=== PATIENT | male | born 1940 | race Caucasian/White ===

== ENCOUNTER 2019-10-07 06:12 | Inpatient (IN) | payer OTHER, SELFPAY ==
[2019-09-30 09:46] VITALS: BMI 25.2
[2019-10-07] VITALS (22 sets, daily range): BP systolic 88–137; BP diastolic 49–77; PULSE 64–84; RESP 6–18; TEMP 35.9–36.4; O2SAT 92–100; BMI 25.2
--- NOTE | 2019-10-07 | DI.RAD.S_ITS ---
PROCEDURE: XR LUMBAR SPINE 2-3V INDICATIONS: Back surgery. TECHNIQUE: 2 views of the lumbar spine were acquired. COMPARISON: [facility] [place], CR, XR LUMBAR SPINE 2 OR 3 VIEWS, 10/03/2017, 9:13. [facility] Outside Film, MR, MR LUMBAR SPINE WITHOUT CONTRAST, 04/30/2019, 9:55. FINDINGS: AP and lateral fluoroscopy images demonstrate discectomy and posterior fusion at L4-L5 and L5-S1. There is persistent grade 2 anterolisthesis of L5 on S1. Pedicular screws and fusion rods are in expected position. IMPRESSION: Discectomy and posterior fusion at L4-L5 and L5-S1. Dictated by: Caesar Ratliff M.D. on 10/07/2019 at 17:13 Approved by: Caesar Ratliff M.D. on 10/07/2019 at 17:16
[2019-10-07] MEDS: LACTATED RINGERS 1,000 ML 42 ML IV ×2 (07:10→09:13)
--- NOTE | 2019-10-07 07:15 | PM.PREOP ---
Pre-operative Note Interval Note History & Physical reviewed/Exam performed by Physician: Yes Changes to H&P: No
[2019-10-07] MEDS: CLINDAMYCIN 600 MG/50 ML PIGGYBACK 50 MG IV (07:47)
--- NOTE | 2019-10-07 08:31 | SUR.OPER ---
Prone on spine table, head in foam head support, padded chest and pelvic supports, gel pad at knees, lower legs supported by pillows; nipples, genitalia and toes free of pressure, arms secured on foam padded arm boards at <90 degrees abduction. Tape over blanket at thigh secured to table.
[2019-10-07] MEDS: THROMBIN (RECOMBINANT) 5,000 UNIT VIAL 5000 UNIT TOP (08:42)
[2019-10-07] MEDS: VANCOMYCIN 1,000 MG VIAL 1000 MG TOP (08:42)
[2019-10-07] MEDS: SODIUM CHLORIDE 0.9% 1,000 ML, GENTAMICIN 80 MG IRR (08:42)
[2019-10-07] MEDS: BUPIVACAINE 0.5% (PF) 4 ML, MORPHINE-PF 4 MG, BUTORPHANOL 1 MG, fentaNYL 100 MCG INJ (08:43)
--- NOTE | 2019-10-07 11:56 | SUR.PHASEI ---
Patienty arrived in PACU with oral airway in. VSS>
--- NOTE | 2019-10-07 12:12 | P.OP_ITS ---
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 They had failed conservative management and requested operative intervention. Risks and benefits of surgery were discussed and appropriate consents were obtained. Surgeon: Garrick Gray Vegetable Canner: Oksana Tran Anesthesia Type: General Operative Notes Findings: None Closure Type: primary Specimen(s): none sent Prosthetic devices, grafts, tissues, transplants, or devices: NuVasive MAS r ely screws Globus Rise cage Applied: catheter Estimated Blood Loss (mL): 20 Blood products transfused: none Procedure in detail: The patient was brought to the operating room and intubated on the table. A time-out was performed. They were then rolled over to the well- padded Skip table in the prone position. Preoperative antibiotics were given. The back was prepped and draped in the standard sterile fashion. Using fluoroscopy, a 5 cm longitudinal incision was made to the well-marked right of the midline. We used Bovie to come down to and split the lumbodorsal fascia. Using fluoroscopy and monitoring, we then percutaneously placed Jamshidi needles down the pedicles of L4, L5, and S1 on the right side. These were changed out to guidewires and then we tapped and then placed the NuVasive MAS Reline screw shanks. We then opened up the retractors based over the L4 and S1 screws and used Bovie to clear up the posterolateral gutter as well as medially along the lamina to the spinous processes at both levels. A bur was used to decorticate the transverse processes and sacral ala. We brought in the microscope. Using a combination of bur and Kerrison rongeurs, a Garcia laminectomy was performed from the right side at L5-S1. We cleared over past the midline and carefully depressed the dura until we were able to decompress the opposite side. We cleared out the neural foramen. This completed the Garcia laminectomy at L5-S1. This was separate and distinct from a TLIF approach as we were decompressing the massive hypertrophic pars defect from his deformity which required extensive dissection of both the canal as well as a facetectomy to free up the nerve root. We then went up to L4-5. Again a complete laminectomy was performed from the right-hand side including facet removal and decompressing across the midline and clearing out the neural foramen until we had the L4 root completely freed. We then began the TLIF prep and at L5-S1. We carefully cleaned up the remainder of the foramen until we could easily retract the exiting L5 root as well as clearing medially below the dura and expose the disc space. We had to use an osteotome and Kerrisons to remove the posterior lip of S1 until we could get all the way down to the disc space. The disc was prepped with bipolar and then an annulotomy was performed. We performed a diskectomy using a combination of paddles, maggie, pituitaries, and curettes. We distracted the disc using a paddle and locked the retractor in an open position. We then filled the disc space with Osteocel bone graft. We then placed the globus Rise cage under fluoroscopy and then filled this in with more bone graft. The distraction on the retractor was released to compress down. This completed the posterior interbody fusion portion of the TLIF at L5-S1. We then went up to L4-5. Again we carefully retracted the dura. An annulotomy was performed. We performed a complete diskectomy with paddle Maggie pituitaries and curettes. Some of the superior endplate of L5 broke down when we rotating our maggie but we were able to place them deeper into the disc more anteriorly and continue clearing up the disc space. We packed bone graft and then placed a globus Rise cage and expanded it under fluoroscopy. This co mpleted the posterior interbody fusion portion of the TLIF at L4-5. We then placed the screw heads, cole, and locked down the set screws. The wound was copiously irrigated. A small stab incision was made over the PSIS. We used a Jamshidi needle to aspirate several mL of bone marrow from the pelvis. This was mixed with the remaining Osteocel and combined with all of the locally harvested bone graft and placed in the posterolateral gutter for the posterior fusion of the TLIF at L4-5 and L5-S1. An epidural catheter was then placed in the spinal canal by carefully depressing the dura and advancing it 6 cm cephalad under the remaining lamina without resistance. The muscle fascia was closed. The catheter was then injected with a solution containing 4 mL of 0.5% Marcaine, 1 mg Stadol, 4 mg Duramorph, and 100 mcg of fentanyl. This was injected without resistance and the catheter was pulled. We then went to the opposite side. Again using fluoroscopy, a 5 cm incision was made and Bovie was used to come down to split the fascia. Using neural monitoring and fluoroscopy, Jamshidi needles were advanced down the pedicles of L4, L5, and S1 on the left side. These were switched over guidewires, tapped, and screws placed. We then placed a cole and locked the set screws on this side. The wound was irrigated. The fascia was closed. Vancomycin powder was placed in the wounds. The superficial and skin were closed. A sterile dressing was placed. The patient was then rolled over extubated and brought to recovery room without complications. Complications: none Post-operative Condition: stable Disposition: PACU Plan for aftercare: Inpatient. Up with therapy.
--- NOTE | 2019-10-07 12:16 | SUR.PHASEI ---
Patient somnolent, but arouses to voice. Denies pain/nausea. Radha MICHAELS. ZAHRAA's x 4.
--- NOTE | 2019-10-07 14:55 | PC.NURSE ---
Addendum entered by Jennifer Duran R.N. 10/07/19 15:45: POM of Prostagenix bottle placed in pt's room med bin. SINA Blanco aware for the request to have ordered as pt takes at home for urinary frequency and urgency. Pt has not had a dose today, states takes 3 capsules daily as stated on bottle. Pt had previously tried Flomax at 0.4mg dose and 0.8mg dose without good results. Original Note: Day Shift- Report rec'd from DIABETES NURSE at 1240, Pt arrived at 1300 via bed into room 221. Pt's son Don at bedside as well. Lower back dressing gauze and tegaderm dressing CDI. CMS+, PPP, pt has slight decreased sensation to BLE extending from groin to ankle. Able to move BLE, wriggle toes. Oriented pt to call light, bed function, post op vitals. repositioning every couple hours. POM of Flurometholone sent to pharmacy to ID and retrieved back and placed in pt's bin. Spoke with SINA Blanco at 1430 to clarify if okay for pt to have ordered Celebrex. Reported from DIABETES NURSE and pt's son Jacob, pt has side effect from Ibuprofen. Son Jacob states that pt was told not to take Ibuprofen by a physician.
--- NOTE | 2019-10-07 16:00 | PT.IIE ---
Current Diagnoses Spondylolisthesis, lumbar region (10/07/19) Spinal stenosis, lumbar region with neurogenic claudication (10/07/19) Surgery Performed Operation Date: 10/07/19 07:45 Actual Procedures p L4-5 & L5-S1 laminectomy and instrumented fusion w/bone graft - Garrick Gray MD Surgical History (Last Updated 09/30/19 @ 10:17 by Diane Dillard RN) H/O vasectomy (Acute) History of arthroplasty of right knee (Acute) History of total right hip arthroplasty (Acute) Hx of arthroscopy of left knee (Acute) Hx of arthroscopy of right knee (Acute) Hx of cystoscopy (Acute) Hx of hernia repair (Acute) Hx of left knee surgery (Acute ~2004) S/P CABG x 4 (Acute ~01/2017) Status post extracapsular cataract extraction of right eye (Acute) Medical History (Last Updated 09/30/19 @ 10:20 by Diane Dillard RN) Arthritis (Acute) BCC (basal cell carcinoma) (Acute) Bilateral shoulder pain (Acute) CAD (coronary artery disease) (Acute) Diabetes (Acute) Enlarged prostate (Acute) HLD (hyperlipidemia) (Acute) [place] (hard of hearing) (Acute) HTN (hypertension) (Acute) Neck pain (Acute) Numbness (Acute) PSVT (paroxysmal supraventricular tachycardia) (Acute) Physical Therapy Inpatient Evaluation/Re-Eval M1 PT/OT-IP Prior Functional Status Start: 10/07/19 14:33 Freq: NEEDED Status: Active Protocol: Document 10/07/19 15:45 AW (Rec: 10/07/19 16:17 AW [id number]) Medical Review Prior Functional Status Medical History Reviewed Yes Diet/Fluid Consistency Regular Communication WNL Mobility and Gait Pt used an assistive device - either 4WW or SPC for all mobility. Pt's own 4WW is in the room with him. Activities of Daily Living and IADL's Pt lives alone and was independent for all ADL's Social History Household Members none Living Arrangements House Number of Floors (Floors) One Floor Number of Stairs To Enter/Railing? 1 RBYCE, but can bypass the step with a ramp Home Environment High Toilet,Walk in Shower, Ramp Home Equipment Front Wheel Walker,Four Wheel Walker,Straight Cane,Shower Seat without Backrest,Grab Bars Near Toilet,Grab Bars In Shower Employment Status Retired Additional Social History Comment Pt's son, Jacob, lives nearby. He has not planned to take time off work to be with the pt realtime reporter at discharge but will be able to check in daily . M2 PT-IP Current Condition Start: 10/07/19 14:33 Freq: NEEDED Status: Active Protocol: Document 10/07/19 15:45 AW (Rec: 10/07/19 16:17 AW [id number]) Physical Therapy Current Condition Current Condition Evaluation Date 10/07/19 Treatment Diagnosis s/p L4-5 L5-S1 TLIF, impaired mobility Onset Date 10/07/19 Precautions Lumbar Precautions Log Roll,No Twisting,Limit Bending,Lifting Restriction of 10 lbs,Gait Belt above Incisional Area Weight Bearing Status Weight Bearing Status Full Weight Bearing M3 PT-IP Subjective Start: 10/07/19 14:33 Freq: NEEDED Status: Active Protocol: Document 10/07/19 15:45 AW (Rec: 10/07/19 16:17 AW [id number]) Subjective Physical Therapy Visit Type Type Initial Evaluation Visit Start Time 14:43 Visit Stop Time 15:35 Total Visit Minutes 52 Notes Pt's son, Jacob, present throughout evaluation Number of SHAPE HAND Visits 0 Physical Therapy Visit Comments Patient Comments Pt would like to get moving Patient Goals To go home when medically ready Therapy Pain Assessment Pain When Pain Assessed During Mobility Pain Present Pain Present Pain Reported Location low back Intensity 7 Scale Used 3/10 at rest; 7/10 with mobility Pain Management Techniques Distraction,Re-positioning, Timing of Activity with Medications M4 PT-IP Mobility and Gait Start: 10/07/19 14:33 Freq: NEEDED Status: Active Protocol: Document 10/07/19 15:45 AW (Rec: 10/07/19 16:17 AW [id number]) PT-Bed Mobility Assessment Rolling Type of Rolling Log Rolling Level of Assist Minimal Assistance Supine to Sit Supine to Sit Minimal Assistance,1 Person Assistance Sit to Supine Sit to Supine Minimal Assistance,1 Person Assistance Scooting Scooting to Edge of Bed Contact Guard Assistance Scooting Up and Down in Bed Standby Assistance PT-Transfer Assessment Sit to and From Stand Sit to and from Stand Standby Assistance,Contact Guard Assistance,Minimal Assistance Equipment Transfer Assistive Device Gait Belt,Front Wheeled Walker Orthotic/Prosthetic Devices or Brace: No Transfers Transfer Destination Bed Transfer Technique pt ambulated with FWW Transfer Ability Level of Assist Contact Guard Assistance,1 Person Assistance,Use of Upper Extremities Comments Mobility Comments Pt completed log roll to exit bed to his right side as he does at home. He required min A x 1 and cues for sequencing for log roll and supine to sit . He sat EOB for MMT with and without UE support. First attempt at sit to stand required min A x 1 with FWW and cues for B UE pushoff in order to maintain spinal precautions. Pt is impulsive and required reminders not to stand without assistance. Pt stood with FWW CGA and performed marching in place ~2 minutes and then walked with the FWW CGA 12 feet round trip to the window and back. He sat EOB and requested to walk further. Subsequent sit to stand attempts required only SBA. After gait training, pt was repositioned in the bed with bed alarm armed, call light and all needs within reach, and son at bedside. Gait Assessment Gait Gait Assistance Required: Contact Guard Assist,1 Person Assist Distance (Feet) 150 Able to Maintain Weight Bearing Status Yes During Gait Assistive Devices Assistive Device Gait Belt,Front Wheeled Walker Orthotic/Prosthetic Devices or Brace: No Gait Deviations General Gait Pattern Antalgic,Decreased Stride Length,Decreased Feet Clearance,Flexed Trunk,Lateral Trunk Lean,Step-to Gait Factors Limiting Gait Function Factors Limiting Gait Function Decreased Activity Tolerance, Decreased Strength,Limited Range of Motion,Pain,Poor Balance,Poor Safety Awareness Comments Gait Comments Pt ambulated ~150 feet with FWW CGA. He required cues for equal step length and was able to correct his step-to pattern with shorter steps. He demonstrated ipsilateral trunk lean in stance phase bilaterally. Stair Climbing Assessment Comments Stair Climbing Comments Not assessed. Pt does not need to climb stairs at home. PT-Balance Assessment Sitting Balance and Reactions Static Sitting Balance Ability Normal Dynamic Sitting Balance Ability Good Standing Balance and Reactions Static Standing Balance Ability Good Dynamic Standing Balance Ability Good Device Used FWW M5 PT-IP Objective Assessments Start: 10/07/19 14:33 Freq: NEEDED Status: Active Protocol: Document 10/07/19 15:45 AW (Rec: 10/07/19 16:17 AW [id number]) Orientation Orientation/Cognition Level of Alertness Alert Orientation Name,Day of Week,Place, Situation Language Function Ability No Deficits Noted,Hard of Hearing Safety Awareness Decreased Safety Awareness Memory Description No Deficits Noted Comments Pt wears hearing aids which are effective in correcting his hearing impairment. Gross Range of Motion Upper Extremity ROM Assessment Within Functional Limits Lower Extremity ROM Assessment Bilaterally Impaired Impairments R LE lacking ~10 degrees; L LE lacks ~5 degrees knee extension, even passively. Strength Upper Extremity Strength Assessment Within Functional Limits Lower Extremity Strength Assessment Bilaterally Impaired Hip 4-/5 Knee 4+/5 Ankle 4+/5 Coordination Assessment Gross Coordination Gross Coordination WNL Sensation Assessment Sensation Gross Sensation WNL M6 PT-IP Treatment Start: 10/07/19 14:33 Freq: NEEDED Status: Active Protocol: Document 10/07/19 15:45 AW (Rec: 10/07/19 16:17 AW [id number]) Physical Therapy Treatment Exercises Exercises Ankle Pumps Other Treatments Other Treatment Performed Provided education on role of PT, plan of care, post-op precautions, and safe use of FWW. M7 PT-IP Assessment and Plan Start: 10/07/19 14:33 Freq: NEEDED Status: Active Protocol: Document 10/07/19 15:45 AW (Rec: 10/07/19 16:17 AW [id number]) PT Summary Assessment and Plan Potential Rehabilitation Potential Good Status of Condition at Evaluation Evolving Summary Impairments Pain,ROM,Strength,Balance,Bed Mobility,Transfers,Gait, Activity Tolerance Assessment Summary Jacob is a 79 yo man seen for PT evaluation on POD0 following L4-5 L5-S1 TLIF. At baseline, he ambulates with a 4WW or occasionally with a SPC. Pt states he could walk up to 800 ' with 4WW. Pt reports 2 non- injurious falls in the past year. He lacks 5-10 degrees active and passive knee extension bilaterally. On evaluation, pt required up to min assist x 1 for all mobility but PT anticipates he will progress quickly and likely be safe to discharge home with his son checking in daily. PT recommends discharge to home with assist and possible need for home health services to address self-care and safety in the home, bilateral LE strength deficits , and balance impairments. Goals Bed Mobility Goal Independent Transfer Goal Independent,Front Wheeled Walker,Four Wheeled Walker Gait Goal Independent,Front Wheel Walker ,Four Wheel Walker Gait Distance 200 Other Goals transfer and gait goals to be assessed with FWW vs 4WW for safety. Days to Meet Goals 2 Frequency of Treatment Frequency Of Treatment Twice a Day Treatment Plan Physical Therapy Treatment Plan Bed Mobility Training,Transfer Training,Gait Training, Therapeutic Exercise,Balance Retraining,Post Op Education, Discharge Planning,Hot or Cold Pack,Neuromuscular Re-ed, Coordination Retraining,Manual Therapy Other Recommendations and Next Treatment assess gait with 4WW, review Focus precautions and log roll Recommendations To Nursing Amount of Assist Needed 1 Person Assist Discharge Recommendations PT Discharge Recommendations Home with Assistance,Home Health,Outpatient PT Other Discharge Recommendations Home with assist + HH vs OP PT
[2019-10-07] MEDS: CLINDAMYCIN 900 MG/50 ML PIGGYBACK 50 MG IV ×2 (16:10→23:51)
[2019-10-07] MEDS: HYDROCODONE/ACET 5/325 TABLET 2 TAB PO ×2 (16:11→20:48)
[2019-10-07] MEDS: LACTATED RINGERS 1,000 ML 125 ML IV ×2 (16:17→21:35)
[2019-10-07] MEDS: SENNOSIDES 8.6 MG TABLET 17.2 MG PO (20:46)
[2019-10-07] MEDS: ASPIRIN EC 81 MG TABLET PO (20:46)
[2019-10-07] MEDS: DOCUSATE 100 MG CAPSULE PO (20:46)
[2019-10-07] MEDS: METOPROLOL IR 25 MG TABLET 12.5 MG PO (20:47)
[2019-10-07] MEDS: GABAPENTIN 300 MG CAPSULE PO (20:47)
[2019-10-07] MEDS: ROSUVASTATIN 10 MG TABLET 20 MG PO (20:50)
[2019-10-08] VITALS (7 sets, daily range): BP systolic 95–126; BP diastolic 47–60; PULSE 72–86; RESP 16–17; TEMP 36.6–37.4; O2SAT 92–98
[2019-10-08 06:10] LABS: Hematocrit 31.3 % (41-53); Hemoglobin 10.9 g/dL (13.5-17.5)
--- NOTE | 2019-10-08 08:25 | P.PN_ITS ---
Subjective Subjective Date Patient Seen: 10/08/19 Time Patient Seen: 08:25 Interval history: He is doing fairly well. Pain 2/10 at rest. He did get up and walk yesterday, which has increased pain. No more leg pain. Exam Vital Signs (past 8 hours): - 10/08/19 05:00 Temperature 98.7 F Pulse Rate 83 Respiratory Rate 16 Blood Pressure 126/56 L Pulse Oximetry 94 Oxygen Delivery Method Room Air Oxygen Flow Rate 0 Const Orientation: alert and oriented x3 Back/Spine/Pelvis Other: 5/5 motor both lower extremities. Mild drainage on the dressing. Objective Labs Result Diagrams: 10/08/19 05:27 Labs: Laboratory Results - last 24 hr 10/08/19 05:27 Hgb 10.9 L Hct 31.3 L Assessment & Plan Post-op Postoperative Procedures: Procedures Operation Date: 10/07/19 07:45 Actual Procedures Side Surgeon p L4-5 & L5-S1 laminectomy and instrumented fusion w/bone graft Garrick Gray MD He is doing well. Mobilize with therapy. Consider home health for intermediate over the next few days depending on how well he is moving. He does live by himself and will require some assistance with this. Quality VTE Deep Vein Thrombosis/Pulmonary Embolism Present on Admission: No
[2019-10-08] MEDS: HYDROCODONE/ACET 5/325 TABLET 2 TAB PO ×4 (08:55→22:20)
[2019-10-08] MEDS: ASPIRIN EC 81 MG TABLET PO ×2 (08:56→20:13)
[2019-10-08] MEDS: DOCUSATE 100 MG CAPSULE PO ×2 (08:57→20:11)
[2019-10-08] MEDS: POLYETHYLENE GLYCOL 3350 17 GM POWD.PACK PO (08:58)
[2019-10-08] MEDS: METOPROLOL IR 25 MG TABLET 12.5 MG PO ×2 (08:58→20:15)
[2019-10-08] MEDS: SODIUM CHLORIDE 0.9% FLUSH 10 ML IV ×2 (08:59→21:26)
[2019-10-08] MEDS: hydrOXYzine pamoate 25 MG CAPSULE PO ×2 (11:02→16:40)
--- NOTE | 2019-10-08 11:04 | PT.IPTN ---
Current Diagnoses Spondylolisthesis, lumbar region (10/07/19) Spinal stenosis, lumbar region with neurogenic claudication (10/07/19) Surgery Performed Operation Date: 10/07/19 07:45 Actual Procedures p L4-5 & L5-S1 laminectomy and instrumented fusion w/bone graft - Garrick Gray MD Physical Therapy Treatment Note M2 PT-IP Current Condition Start: 10/07/19 14:33 Freq: NEEDED Status: Active Protocol: Document 10/07/19 15:45 AW (Rec: 10/07/19 16:17 AW [id number]) Physical Therapy Current Condition Current Condition Evaluation Date 10/07/19 Treatment Diagnosis s/p L4-5 L5-S1 TLIF, impaired mobility Onset Date 10/07/19 Precautions Lumbar Precautions Log Roll,No Twisting,Limit Bending,Lifting Restriction of 10 lbs,Gait Belt above Incisional Area Weight Bearing Status Weight Bearing Status Full Weight Bearing M3 PT-IP Subjective Start: 10/07/19 14:33 Freq: NEEDED Status: Active Protocol: Document 10/08/19 09:54 MB (Rec: 10/08/19 11:03 MB [id number]) Subjective Physical Therapy Visit Type Type Treatment Note Visit Start Time 09:54 Visit Stop Time 10:18 Total Visit Minutes 24 Number of RESTAURANT CULINARY MANAGER Visits 0 Physical Therapy Visit Comments Patient Comments Pt would like to get up Patient Goals unsure if d/c home or SNF It depends on how I do Pt lives alone Therapy Pain Assessment Pain When Pain Assessed During Mobility Pain Present Pain Present Pain Reported Location low back Intensity 8 Scale Used 0/10 at rest, 8-10/10 transfer , 8/10 when up Pain Management Techniques Re-positioning,Timing of Activity with Medications M4 PT-IP Mobility and Gait Start: 10/07/19 14:33 Freq: NEEDED Status: Active Protocol: Document 10/08/19 09:54 MB (Rec: 10/08/19 11:03 MB [id number]) PT-Bed Mobility Assessment Rolling Type of Rolling Log Rolling,Roll to Right Level of Assist Minimal Assistance,1 Person Assistance Supine to Sit Supine to Sit Moderate Assistance,1 Person Assistance PT-Transfer Assessment Sit to and From Stand Sit to and from Stand Moderate Assistance,1 Person Assistance Equipment Transfer Assistive Device Gait Belt,Front Wheeled Walker Orthotic/Prosthetic Devices or Brace: No Transfers Transfer Destination Chair Transfer Technique pt ambulated with RW Transfer Ability Level of Assist Moderate Assistance,1 Person Assistance,Use of Upper Extremities Comments Mobility Comments Pt requires cues for log rolling today and assist to keep his legs bent for rolling to the right. He tries to reach for walker or chair and PT must cue him to use bed rail with left hand and push from right elbow. He requires mod A to get to sitting, helping lower through his legs . Gait Assessment Gait Gait Assistance Required: Moderate Assistance,1 Person Assist Distance (Feet) 5 Assistive Devices Assistive Device Gait Belt,Front Wheeled Walker Orthotic/Prosthetic Devices or Brace: No Gait Deviations General Gait Pattern Antalgic,Decreased Stride Length,Decreased Feet Clearance,Flexed Trunk,Lateral Trunk Lean,Step-to Gait Factors Limiting Gait Function Factors Limiting Gait Function Decreased Activity Tolerance, Decreased Strength,Limited Range of Motion,Pain,Poor Balance,Poor Safety Awareness Comments Gait Comments 5'x5 sets, pt with very flexed posture at his hips and knees , greater on the left knee. He presents with decreased step- length and foot clearance. He presses heavily through arms. He requires VCs and asst to move the walker and for safety . Cues for how to get lined up to chair properly Stair Climbing Assessment Comments Stair Climbing Comments Not assessed. Pt does not need to climb stairs at home. PT-Balance Assessment Sitting Balance and Reactions Static Sitting Balance Ability Normal Dynamic Sitting Balance Ability Good Standing Balance and Reactions Static Standing Balance Ability Poor Dynamic Standing Balance Ability Poor Device Used RW Comments Other Balance Tests/Deviations/Treatment Pt requires heavy use of : walker today to stand statically and dynamically, cannot extend fully through hips and knees M5 PT-IP Objective Assessments Start: 10/07/19 14:33 Freq: NEEDED Status: Active Protocol: Document 10/07/19 15:45 AW (Rec: 10/07/19 16:17 AW [id number]) Orientation Orientation/Cognition Level of Alertness Alert Orientation Name,Day of Week,Place, Situation Language Function Ability No Deficits Noted,Hard of Hearing Safety Awareness Decreased Safety Awareness Memory Description No Deficits Noted Comments Pt wears hearing aids which are effective in correcting his hearing impairment. Gross Range of Motion Upper Extremity ROM Assessment Within Functional Limits Lower Extremity ROM Assessment Bilaterally Impaired Impairments R LE lacking ~10 degrees; L LE lacks ~5 degrees knee extension, even passively. Strength Upper Extremity Strength Assessment Within Functional Limits Lower Extremity Strength Assessment Bilaterally Impaired Hip 4-/5 Knee 4+/5 Ankle 4+/5 Coordination Assessment Gross Coordination Gross Coordination WNL Sensation Assessment Sensation Gross Sensation WNL M6 PT-IP Treatment Start: 10/07/19 14:33 Freq: NEEDED Status: Active Protocol: Document 10/08/19 09:54 MB (Rec: 10/08/19 11:03 MB [id number]) Physical Therapy Treatment Exercises Exercises Ankle Pumps,Gluteal Sets, Seated Knee Flexion/Extension Other Treatments Other Treatment Performed Other exercises: mini squats and marching in standing with walker, seated scapular retraction and use of incentive spirometer, shoulder flexion Other ed to pt and nsg: Pt to have asst from nursing and walker to move from sit to stand every 30 min to 1 hour to unweight spine, walk with assist, nsg obtaining alarm for chair M7 PT-IP Assessment and Plan Start: 10/07/19 14:33 Freq: NEEDED Status: Active Protocol: Document 10/08/19 09:54 MB (Rec: 10/08/19 11:03 [id number]) PT Summary Assessment and Plan Potential Rehabilitation Potential Fair Summary Impairments Pain,ROM,Strength,Balance,Bed Mobility,Transfers,Gait, Activity Tolerance Assessment Summary Pt requires increased assistance today for bed mobility, transfers and gait. His posture is very poor with gait and he does not extend through spine, hips or knees. Given that he requires ongoing asst for mobility and he lives alone, recommend SNF for ongoing PT and 24 hour care at d/c. Con't acute PT 2x/day. Goals Bed Mobility Goal Independent Transfer Goal Independent,Front Wheeled Walker,Four Wheeled Walker Gait Goal Independent,Front Wheel Walker ,Four Wheel Walker Gait Distance 200 Other Goals transfer and gait goals to be assessed with FWW vs 4WW for safety. Days to Meet Goals 2 Frequency of Treatment Frequency Of Treatment Twice a Day Treatment Plan Physical Therapy Treatment Plan Bed Mobility Training,Transfer Training,Gait Training, Therapeutic Exercise,Balance Retraining,Post Op Education, Discharge Planning,Hot or Cold Pack,Neuromuscular Re-ed, Coordination Retraining,Manual Therapy Other Recommendations and Next Treatment assess gait with 4WW, review Focus precautions and log roll Recommendations To Nursing Amount of Assist Needed 1 Person Assist Discharge Recommendations PT Discharge Recommendations SNF Rehab
--- NOTE | 2019-10-08 14:34 | PT.IPTN ---
Current Diagnoses Spondylolisthesis, lumbar region (10/07/19) Spinal stenosis, lumbar region with neurogenic claudication (10/07/19) Surgery Performed Operation Date: 10/07/19 07:45 Actual Procedures p L4-5 & L5-S1 laminectomy and instrumented fusion w/bone graft - Garrick Gray MD Physical Therapy Treatment Note M2 PT-IP Current Condition Start: 10/07/19 14:33 Freq: NEEDED Status: Active Protocol: Document 10/07/19 15:45 AW (Rec: 10/07/19 16:17 AW [id number]) Physical Therapy Current Condition Current Condition Evaluation Date 10/07/19 Treatment Diagnosis s/p L4-5 L5-S1 TLIF, impaired mobility Onset Date 10/07/19 Precautions Lumbar Precautions Log Roll,No Twisting,Limit Bending,Lifting Restriction of 10 lbs,Gait Belt above Incisional Area Weight Bearing Status Weight Bearing Status Full Weight Bearing M3 PT-IP Subjective Start: 10/07/19 14:33 Freq: NEEDED Status: Active Protocol: Document 10/08/19 13:55 LJ (Rec: 10/08/19 14:34 LJ [email or web address]) Subjective Physical Therapy Visit Type Type Treatment Note Visit Start Time 13:55 Visit Stop Time 14:15 Total Visit Minutes 20 Number of VIRTUAL CLASSROOM MANAGER Visits 1 Physical Therapy Visit Comments Patient Comments Pt in chair wanting to get up. Son and neighbor in the room with pt Therapy Pain Assessment Pain When Pain Assessed During Mobility Pain Present Pain Present Pain Reported M4 PT-IP Mobility and Gait Start: 10/07/19 14:33 Freq: NEEDED Status: Active Protocol: Document 10/08/19 13:55 SHANE (Rec: 10/08/19 14:34 LJ [id number]) PT-Transfer Assessment Sit to and From Stand Sit to and from Stand Moderate Assistance,1 Person Assistance Equipment Transfer Assistive Device Gait Belt,Front Wheeled Walker Orthotic/Prosthetic Devices or Brace: No Transfers Transfer Destination Chair Transfer Technique pt ambulated with FWW Transfer Ability Level of Assist Moderate Assistance,1 Person Assistance,Use of Upper Extremities Comments Mobility Comments Pt requirres VC for scooting in chair and proper use of hands when standing. Mod VC to straighten back and stand upright. Gait Assessment Gait Gait Assistance Required: Moderate Assistance,1 Person Assist Distance (Feet) 20 Able to Maintain Weight Bearing Status Yes During Gait Assistive Devices Assistive Device Gait Belt,Front Wheeled Walker Orthotic/Prosthetic Devices or Brace: No Gait Deviations General Gait Pattern Antalgic,Decreased Stride Length,Decreased Feet Clearance,Flexed Trunk,Lateral Trunk Lean,Step-to Gait Factors Limiting Gait Function Factors Limiting Gait Function Decreased Activity Tolerance, Decreased Strength,Limited Range of Motion,Pain,Poor Balance,Poor Safety Awareness Comments Gait Comments Pt ambulated from chair to sink needing verbal and manual cueing to stand upright and keep FWW closer to him. Had some difficulty following directions and managing FWW when asked to turn around and walk back to chair. Pt unwilling to attempt walking in the hallway although he was out with nursing x2 earlier today. M5 PT-IP Objective Assessments Start: 10/07/19 14:33 Freq: NEEDED Status: Active Protocol: Document 10/07/19 15:45 AW (Rec: 10/07/19 16:17 AW [id number]) Orientation Orientation/Cognition Level of Alertness Alert Orientation Name,Day of Week,Place, Situation Language Function Ability No Deficits Noted,Hard of Hearing Safety Awareness Decreased Safety Awareness Memory Description No Deficits Noted Comments Pt wears hearing aids which are effective in correcting his hearing impairment. Gross Range of Motion Upper Extremity ROM Assessment Within Functional Limits Lower Extremity ROM Assessment Bilaterally Impaired Impairments R LE lacking ~10 degrees; L LE lacks ~5 degrees knee extension, even passively. Strength Upper Extremity Strength Assessment Within Functional Limits Lower Extremity Strength Assessment Bilaterally Impaired Hip 4-/5 Knee 4+/5 Ankle 4+/5 Coordination Assessment Gross Coordination Gross Coordination WNL Sensation Assessment Sensation Gross Sensation WNL M6 PT-IP Treatment Start: 10/07/19 14:33 Freq: NEEDED Status: Active Protocol: Document 10/08/19 13:55 LJ (Rec: 10/08/19 14:34 LJ [id number]) Physical Therapy Treatment Exercises Exercises Gluteal Sets,Quad Sets, Straight Leg Raises,Seated Knee Flexion/Extension Other Treatments Other Treatment Performed Mini squats, marching in seated and standing, scapular retraction, c-spine extension M7 PT-IP Assessment and Plan Start: 10/07/19 14:33 Freq: NEEDED Status: Active Protocol: Document 10/08/19 13:55 LJ (Rec: 10/08/19 14:34 LJ [id number]) PT Summary Assessment and Plan Potential Rehabilitation Potential Fair Status of Condition at Evaluation Evolving Summary Impairments Pain,ROM,Strength,Balance,Bed Mobility,Transfers,Gait, Activity Tolerance Assessment Summary Pt initially stated he had to use the bathroom then when he stood with ModA and mod cueing he stated he was going to go to the sink. He was prompted to stand erect and get his bearings prior to stepping forward. Even with cueing pt was unable to stand erect and had directional confusion when ambulating in room. He could not seem to figure out where he was going. Right LE significantly weaker than left and pt unable to straighten bilateral knees and hips during ambulation. Returned to chair with OT and pt had difficulty deciding on a number for his pain then stating it was a 10. Several minutes lapsed then he decided on 9 level of pain. Pt is unsafe to return home without / care. Will need SNF to imoprove strength, gait, and balance. Goals Bed Mobility Goal Independent Transfer Goal Independent,Front Wheeled Walker,Four Wheeled Walker Gait Goal Independent,Front Wheel Walker ,Four Wheel Walker Gait Distance 200 Other Goals transfer and gait goals to be assessed with FWW vs 4WW for safety. Days to Meet Goals 2 Frequency of Treatment Frequency Of Treatment Twice a Day Treatment Plan Physical Therapy Treatment Plan Bed Mobility Training,Transfer Training,Gait Training, Therapeutic Exercise,Balance Retraining,Post Op Education, Discharge Planning,Hot or Cold Pack,Neuromuscular Re-ed, Coordination Retraining,Manual Therapy Other Recommendations and Next Treatment assess gait with 4WW, review Focus precautions and log roll Recommendations To Nursing Amount of Assist Needed 1 Person Assist Discharge Recommendations PT Discharge Recommendations SNF Rehab
--- NOTE | 2019-10-08 14:34 | CM.IDA ---
Initial DCP Assessment Note: Pt is a 79 yo male, resident of [place]. Pt is POD#1 from spinal surgery w/ Dr Gray. PCP: Agus Denny Payer: [employer] MCR Dr Gray alerted this GLASS DEPOSITION TENDER this AM; pt will likely need SNF. This GLASS DEPOSITION TENDER met w/pt this AM and then returned to review DCP w/ son RONNIE James Jr. Pt lives alone, son lives 6 blocks away but works timers inspector. Pt has short term memory loss and PT/OT recommending SNF upon DC. Pt/family agreeable and request this GLASS DEPOSITION TENDER research two options first: [facility] and [facility] Acute Rehab (pt aware he would need to tolerate at least 3 hours of therapies daily). Placed call to Kareen at [facility], gave referral per pt/family request and Kareen explained she would need to research pt's [employer] policy because they are not contracted w/every policy that [employer] provides. Following closely for coordination of safe DCP. Pt's family and therapy team feel strongly that pt is not safe to return home at this time. See therapy notes for detail. LUCÍA Abdi Discharge Planning/Care Management CM Discharge Assessment Start: 10/08/19 14:30 Freq: Status: Active Protocol: Document 10/08/19 14:30 MARIELY (Rec: 10/08/19 14:34 MARIELY [id number]) Discharge Planning Assessment Assigned Supervisor Post Wave LUCÍA Guo DPPAVAN/Assigned Designee Name georgina Gomez Jr Contact Information [phone] Advance Directives? Yes Advance Directives on File No History Provided By Patient,Family Member,Medical Record Prior Living Arrangements House Household Members none Independent with ADL's No: Mod indp w/ FWW vs cane Is patient alert and oriented? No: Cognitive deficits noted Needs Assistance With Home Chores / Shopping Patient/Family Preference [facility] Facility Barriers to Discharge Yes Comment Lives alone, PT/OT recommending SNF Discharge Plan [facility] Facility Transportation Arrangement Likely cabulance Referrals Initiated [facility] Additional Comment Referral made to [facility] per pt/ family request, awaiting to hear back to find out of [facility] is contracted w/pt's [employer] M[employer] plan.
--- NOTE | 2019-10-08 14:40 | OT.IP.EVAL ---
Current Diagnoses Spondylolisthesis, lumbar region (10/07/19) Spinal stenosis, lumbar region with neurogenic claudication (10/07/19) Surgery Performed Operation Date: 10/07/19 07:45 Actual Procedures p L4-5 & L5-S1 laminectomy and instrumented fusion w/bone graft - Garrick Gray MD Past Medical History (Last Updated 09/30/19 @ 10:20 by Diane Dillard, RN) Arthritis (Acute) BCC (basal cell carcinoma) (Acute) Bilateral shoulder pain (Acute) CAD (coronary artery disease) (Acute) Diabetes (Acute) Enlarged prostate (Acute) HLD (hyperlipidemia) (Acute) [place] (hard of hearing) (Acute) HTN (hypertension) (Acute) Neck pain (Acute) Numbness (Acute) PSVT (paroxysmal supraventricular tachycardia) (Acute) Surgical History (Last Updated 09/30/19 @ 10:17 by Diane Dillard RN) H/O vasectomy (Acute) History of arthroplasty of right knee (Acute) History of total right hip arthroplasty (Acute) Hx of arthroscopy of left knee (Acute) Hx of arthroscopy of right knee (Acute) Hx of cystoscopy (Acute) Hx of hernia repair (Acute) Hx of left knee surgery (Acute ~2004) S/P CABG x 4 (Acute ~01/2017) Status post extracapsular cataract extraction of right eye (Acute) Occupational Therapy Inpatient Evaluation/Re-Eval M1 PT/OT-IP Prior Functional Status Start: 10/07/19 14:33 Freq: NEEDED Status: Active Protocol: Document 10/08/19 14:40 PJM (Rec: 10/08/19 15:11 PJM [id number]) Medical Review Prior Functional Status Medical History Reviewed Yes Diet/Fluid Consistency Regular Communication WNL Mobility and Gait Pt used an assistive device - either 4WW or SPC for all mobility. Pt's own 4WW is in the room with him. Pt denies any falls within the last 6 months. Activities of Daily Living and IADL's Pt lives alone and was independent with all ADL's including standing shower. Pt independent with all IADLS and drives. He manages his own medications and finances. Prior Functional Level (Other details) Supportive son works but can check on pt daily. Pt also has supportive friend who lives 1 mile away. Social History Household Members none Living Arrangements House Number of Floors (Floors) One Floor Number of Stairs To Enter/Railing? 1 to enter, but also has ramp Home Environment High Toilet,Walk in Shower Home Equipment Front Wheel Walker,Four Wheel Walker,Straight Cane,Shower Seat without Backrest,Long Handled Sponge,Long Handled Shoe Horn,Leather Stitcher,Sock Aid, Grab Bars Near Toilet,Grab Bars In Shower Employment Status Retired M2 OT-IP Current Condition Start: 10/08/19 13:01 Freq: Status: Active Protocol: Document 10/08/19 14:40 PJM (Rec: 10/08/19 15:11 PJ [id number]) Occupational Therapy Current Condition Current Condition Evaluation Date 10/08/19 Treatment Diagnosis decreased self care, mobility s/p L4-5, L5-S1 lami/fusion Diagnosis Onset Date 10/07/19 Post Operative Precautions Lumbar Precautions Log Roll,No Twisting,Limit Bending,Lifting Restriction of 10 lbs,Gait Belt above Incisional Area M3 OT- IP Subjective and Pain Start: 10/08/19 13:01 Freq: Status: Active Protocol: Document 10/08/19 14:40 PJM (Rec: 10/08/19 15:11 PJ [id number]) OT- Subjective Occupational Therapy Visit Type Type Initial Evaluation Visit Start Time 13:55 Visit Stop Time 14:40 Total Visit Minutes 45 Notes Son and pt's friend observing this session. Occupational Therapy Visit Comments Patient/Caregiver Goals to be able to walk without pain and return to independent living in his own home OT Pain Assessment Pain When Pain Assessed After Treatment Pain Present Pain Present Pain Reported Location low back Intensity 7 Scale Used pt has difficulty using pain rating scale Description Aching,Acute M4 OT- IP ADL's Start: 10/08/19 13:01 Freq: Status: Active Protocol: Document 10/08/19 14:40 PJM (Rec: 10/08/19 15:11 PJ [id number]) OT [id number] General Evaluation Self-Feeding Ability Independent OT ADL-Grooming General Evaluation Grooming Ability Standby Assistance Areas Needing Assistance Face Washing Comments OT Grooming Comments seated in chair OT ADL-Oral Care Comments Oral Care Comments did not occur this session OT ADL-Dressing General Eval Lower Body Dressing Ability Maximum Assistance Assistive Devices Dressing Assistive Devices Long Handled Shoe Horn,Leather Stitcher ,Sock Aid Comments OT Dressing Comments Pt familiar with use of lower body dressing equipt from previous hip and knee surgery. OT ADL-Toileting General Evaluation Toileting Ability Total Assistance Areas Needing Assistance Empty Catheter or Colostomy Comments OT Toileting Comments acuna in place OT ADL-Bathing Comments OT Bathing Comments to be assessed as mobility, activity tolerance improve M5 OT- IP IADL's Start: 10/08/19 13:01 Freq: Status: Active Protocol: Document 10/08/19 14:40 PJM (Rec: 10/08/19 15:11 PJ [id number]) OT-Instrumental Activities of Daily Living Deficits IADL Deficits Identified Deficits Home Safety Awareness Awareness of Need for Assistance at Home Good Awareness Medication Management Medication Management No Deficits Identified Money Management Money Management No Deficits Identified Meal Preparation Meal Preparation Caregiver Provides Assist Meal Preparation Comments son, daughter in law and friend can assist PRN [employer] Footwear Mechanic Text[employer] Footwear Mechanic Caregiver Provides Assist Textile Clothing And Footwear Mechanic Comments son, daughter in law and friend can assist PRN Driving Driving Caregiver Provides Assist Driving Comments son, daughter in law and friend can assist PRN M6 OT- IP Functional Cognition Start: 10/08/19 13:01 Freq: Status: Active Protocol: Document 10/08/19 14:40 PJM (Rec: 10/08/19 15:11 PJ [id number]) Cognitive Factors Limiting Selfcare Function Cognitive Ability Level of Alertness Drowsy Patient Orientation Name,Age,Birthday,Month,Date, Year,Place,Situation Attention Span Ability Capable of Focused Attention, Unable to Sustain Attention Ability to Follow Commands Able to Follow One Step Commands Memory Description Short Term Impaired Safety Awareness Decreased Recall of Precautions,Decreased Ability to Apply Precautions, Underestimates Need for Assistance Problem Solving Ability Unable to Identify Errors, Needs Assist to Identify Solutions Executive Function Ability Unable to Filter Distractions, Unable to Organize Plans, Unable to Remember Details Cognitive Comments Cognitive Assessment Comments Pt appears over sedated with slow speed of processing. OT- Vision and Hearing OT- Hearing Assessment OT- Hearing Assessment Right Ear Impaired,Left Ear Impaired,Use of Hearing Aids OT- Vision Assessment Visual Acuity WFL,Glasses For Reading M7 OT- IP Mobility and Balance Start: 10/08/19 13:01 Freq: Status: Active Protocol: Document 10/08/19 14:40 PJM (Rec: 10/08/19 15:11 PJ [id number]) OT- Bed Mobility Assessment Rolling Type of Rolling Roll to Left Level of Assistance Minimal Assistance,1 Person Assistance Sit to Supine Sit to Supine Assist Moderate Assistance,1 Person Assistance Scooting Scooting to Edge of Bed Standby Assistance OT-Transfer Assessment Sit to and From Stand Sit to and from Stand Minimal Assistance,1 Person Assistance,Use of Upper Extremities Transfers Transfer Ability Minimal Assistance,1 Person Assistance Technique Transfer Destination Bed,Chair Transfer Technique Stand Step Pivot Devices Transfer Assistive Devices Bed Rail,Gait Belt,Front Wheeled Walker OT- Gait Assessment Comments Gait Ability Comments see P.T. notes OT- Balance Assessment Sitting Balance and Reactions Static Sitting Balance Ability Good Dynamic Sitting Balance Ability Fair Standing Balance and Reactions Static Standing Balance Ability Fair Dynamic Standing Balance Ability Poor M8 OT- IP Objective Assessments Start: 10/08/19 13:01 Freq: Status: Active Protocol: Document 10/08/19 14:40 PJM (Rec: 10/08/19 15:11 PJM [id number]) OT Gross Range of Motion Upper Extremity Range of Motion Assessment Within Functional Limits OT Strength Upper Extremity Strength Assessment Within Functional Limits OT- Coordination Assessment Comments Coordination Comments BUE WFL OT-Muscle Tone Assessment Muscle Tone WNL Yes OT Sensation Assessment Comments Summary Comments BUE WNL per pt Edema Edema Absent M9 OT- IP Assessment and Plan Start: 10/08/19 13:01 Freq: Status: Active Protocol: Document 10/08/19 14:40 PJM (Rec: 10/08/19 15:11 PJM [id number]) OT Summary Assessment and Plan Potential Rehabilitation Potential Good Summary OT Impairments Pain,Strength,Balance, Functional Cognition, Functional Mobility,Grooming, Dressing,Toileting,Bathing, Toilet Transfers,Shower Transfers Assessment Summary Low complexity OT assessment completed on this 79 yr old male s/p L4-5, L5-S1 lami, fusion. Pt presents today with slowed speed of processing and internally distracted by pain; ? medication related. Pt also has significant performance deficits in all functional mobility/transfers, standing grooming, lower body dressing, bathing and toileting. Pt is far below his baseline level of function as he is normally lives alone and is independent with all self care, IADLS including driving. Recommend IPR (pt request) vs SNF at discharge for further rehab services as pt needs to be completely independent to return home alone. Pt will benefit from OT services here to address the goals below. Goals Grooming Goal Standby Assistance Dressing Goal Standby Assistance,Long Handled Shoe Horn,Leather Stitcher,Sock Aid Toileting Goal Independent Bathing Goal Standby Assistance,Grab Bars, Hand Held Shower Sprayer Toilet Transfer Goal Standby Assistance Shower Transfer Goal Contact Guard Assistance Patient/Caregiver Education Goal Demonstrate Post-Op Precautions,Demonstrate Energy Conservation and Pacing OT-Other Goals Grooming to be done standing at sink with good body mechanics and safety awareness . Days to Meet Goals 7 Frequency of Treatment Frequency Of Treatment Once a Day Treatment Plan OT Treatment Plan ADL Training,Functional Mobility,Patient/Family Education,Discharge Planning Discharge Recommendations OT Discharge Recommendations SNF Rehab,Acute Rehab
--- NOTE | 2019-10-08 15:09 | PC.NURSE ---
Day Shift- Pt A&OX4, able to make his needs known using call light. Bed/chair alarm used. Pt OOB this AM with PT settled into recliner chair at bedside, sat up after breakfast and back to bed around 1400. Pt c/o right side lower back incision pain deep pain, not superficial. Repositioned onto right side using MICK bed tilt. This signwriter did notice increase in drainage to lower portion of dressing, approx 30%, no leaking. To the right of tegaderm edge there is a small intact blister, slight redness, blanchable, not itchy or tender. Right buttock appears small pink raised bumps, pt denied scratching buttocks.
[2019-10-08] MEDS: INSULIN ASPART 100 UNIT/ML INSULN PEN SUBCUT ×2 (16:50→20:36)
[2019-10-08] MEDS: GABAPENTIN 300 MG CAPSULE PO (20:11)
[2019-10-08] MEDS: ROSUVASTATIN 10 MG TABLET 20 MG PO (20:12)
[2019-10-08] MEDS: CELECOXIB 200 MG CAPSULE PO (20:12)
[2019-10-08] MEDS: SENNOSIDES 8.6 MG TABLET 17.2 MG PO (20:12)
[2019-10-08] MEDS: HYDROMORPHONE 0.5 MG INJ 0.2 MG IV (20:28)
--- NOTE | 2019-10-08 22:34 | PC.NURSE ---
A&OX3. refused to get up for faina shift. Reposition q1-2hr. bilat feet scds on. pt's pain 4/10 without movement and 7/10 w/movement. pt received norco, vistaril and 0.2mg IV dilaudid. pt temp 100.4F, pt used his I.S. 2250ml, temp went down to 99.4F. Some pink bumps on his R.buttock, not itchy and a blister to the R.side of his tegaderm.
[2019-10-09] VITALS (7 sets, daily range): BP systolic 95–126; BP diastolic 52–71; PULSE 67–69; RESP 18–20; TEMP 36.4–36.7; O2SAT 94–98
[2019-10-09] MEDS: FLUOROMETHOLONE 1 EACH EYE-RIGHT (04:42)
[2019-10-09] MEDS: HYDROCODONE/ACET 5/325 TABLET 2 TAB PO ×4 (04:42→17:54)
--- NOTE | 2019-10-09 06:54 | PC.NURSE ---
Padron removed at 0668
--- NOTE | 2019-10-09 07:40 | PM.PNPO.1 ---
Subjective Subjective Date Patient Seen: 10/09/19 Time Patient Seen: 07:40 Interval history: He is doing better today. Pain was about 9/10 yesterday, but he has been well medicated overnight. He is now able to comfortably move around the bed and lift his legs up and down. He was quite limited with PT and needed significant assistance yesterday. Exam Vital Signs (past 8 hours): - 10/09/19 05:25 Temperature 97.5 F L Pulse Rate 69 Respiratory Rate 18 Blood Pressure 102/52 L Pulse Oximetry 98 Oxygen Delivery Method Room Air Oxygen Flow Rate 0 Const Orientation: alert and oriented x3 Back/Spine/Pelvis Other: Minimal dry drainage. Small 1 cm tape blister to the right-hand side. 5/5 motor both lower extremities Objective Labs Result Diagrams: 10/08/19 05:27 Assessment & Plan Post-op Postoperative Procedures: Procedures Operation Date: 10/07/19 07:45 Actual Procedures Side Surgeon p L4-5 & L5-S1 laminectomy and instrumented fusion w/bone graft Garrick Gray MD he is doing as expected after surgery. Continue to mobilize with therapy. Anticipate skilled rehab after his hospitalization prior to going home. The patient lives independently and will need more mobility and independence prior to going home. At this point he still quite unstable on his feet requiring assistance. Quality VTE Deep Vein Thrombosis/Pulmonary Embolism Present on Admission: No
[2019-10-09] MEDS: SODIUM CHLORIDE 0.9% FLUSH 10 ML IV ×2 (08:30→23:20)
[2019-10-09] MEDS: CELECOXIB 200 MG CAPSULE PO ×2 (08:36→20:29)
[2019-10-09] MEDS: ASPIRIN EC 81 MG TABLET PO ×2 (08:36→20:29)
[2019-10-09] MEDS: POLYETHYLENE GLYCOL 3350 17 GM POWD.PACK PO (08:37)
[2019-10-09] MEDS: DOCUSATE 100 MG CAPSULE PO ×2 (08:37→20:29)
[2019-10-09] MEDS: METOPROLOL IR 25 MG TABLET 12.5 MG PO ×2 (08:39→20:30)
--- NOTE | 2019-10-09 10:48 | PC.NURSE ---
Day Shift- Pt A&OX4, able to make needs known using call light. Lower back gauze and tegaderm dressing intact, old sero-sang drainage, no leaking noted. small amount of drainage to distal end of dressing and dry serous drainage to left side dressing. Per Dr Gray, no need to change at this time. Dr. Gray also aware of right lower back small intact blister and dark redness and moist to right buttock and posterior upper thigh. Will monitor. Pain management plan discussed. PRn [place] 2 tabs given at 0840. Pt OOB this AM to recliner chair and OOB again with OT around 1030.
--- NOTE | 2019-10-09 11:04 | OT.IP.TRT ---
Current Diagnoses Spondylolisthesis, lumbar region (10/07/19) Spinal stenosis, lumbar region with neurogenic claudication (10/07/19) Surgery Performed Operation Date: 10/07/19 07:45 Actual Procedures p L4-5 & L5-S1 laminectomy and instrumented fusion w/bone graft - Garrick Gray MD Occupational Therapy Treatment Note M2 OT-IP Current Condition Start: 10/08/19 13:01 Freq: Status: Active Protocol: Document 10/08/19 14:40 PJM (Rec: 10/08/19 15:11 PJM [id number]) Occupational Therapy Current Condition Current Condition Evaluation Date 10/08/19 Treatment Diagnosis decr'd self care, mobility s/p L4-5, L5-S1 lami/fusion Diagnosis Onset Date 10/07/19 Post Operative Precautions Lumbar Precautions Log Roll,No Twisting,Limit Bending,Lifting Restriction of 10 lbs,Gait Belt above Incisional Area M3 OT- IP Subjective and Pain Start: 10/08/19 13:01 Freq: Status: Active Protocol: Document 10/09/19 11:04 PJM (Rec: 10/09/19 11:22 PJ [id number]) OT- Subjective Occupational Therapy Visit Type Type Treatment Note Visit Start Time 10:35 Visit Stop Time 11:04 Total Visit Minutes 29 Occupational Therapy Visit Comments Patient Comments I'm doing better today. Patient/Caregiver Goals to get stronger and return to indep living at home OT Pain Assessment Pain When Pain Assessed After Treatment Pain Present Pain Present Pain Reported Location low back Intensity 6 Scale Used Numeric (1 - 10) Description Aching,Acute M4 OT- IP ADL's Start: 10/08/19 13:01 Freq: Status: Active Protocol: Document 10/09/19 11:04 PJM (Rec: 10/09/19 11:22 PJ [id number]) OT ADL-Grooming General Evaluation Grooming Ability Minimal Assistance Areas Needing Assistance Face Washing Comments OT Grooming Comments pt needs close CGA to min assist for balance and provided education re: body mechanics as pt tends to bend over sink and lean on elbows OT ADL-Oral Care Comments Oral Care Comments pt declines to brush teeth in AM, brushes in evening only OT ADL-Dressing General Eval Lower Body Dressing Ability Minimal Assistance,Moderate Assistance Areas Needing Assistance Socks Assistive Devices Dressing Assistive Devices Experimental Rocket Sled Mechanic,Sock Aid Comments OT Dressing Comments Min assist with socks: practiced use of skip pitman and sock aid to don/doff socks; pt needs min cues for technique and to orient sock aid correctly prior to placement over foot. Mod assist to get brief started over feet seated on toilet with use of skip pitman. OT ADL-Toileting General Evaluation Toileting Ability Minimal Assistance Areas Needing Assistance Manage Clothing Comments OT Toileting Comments needs assist to pull brief up in back OT ADL-Bathing Comments OT Bathing Comments to be assessed as activity tolerance improves M6 OT- IP Functional Cognition Start: 10/08/19 13:01 Freq: Status: Active Protocol: Document 10/09/19 11:04 PJ (Rec: 10/09/19 11:22 [facility] [id number]) Cognitive Factors Limiting Selfcare Function Cognitive Ability Level of Alertness Alert Attention Span Ability Capable of Focused Attention, Capable of Sustained Attention Ability to Follow Commands Able to Follow One Step Commands Safety Awareness Decreased Recall of Precautions,Decreased Ability to Apply Precautions, Underestimates Need for Assistance Problem Solving Ability Unable to Identify Errors, Needs Assist to Identify Solutions Cognitive Comments Cognitive Assessment Comments Pt needs min to mod cues to apply lumbar spine precautions during self care tasks such as grooming and dressing. Pt alert with faster speed of processing today. M7 OT- IP Mobility and Balance Start: 10/08/19 13:01 Freq: Status: Active Protocol: Document 10/09/19 11:04 PJM (Rec: 10/09/19 11:22 [facility] [id number]) OT- Bed Mobility Assessment Rolling Type of Rolling Roll to Right Level of Assistance Contact Guard Assistance,1 Person Assistance Supine to Sit Supine to Sit Assist Contact Guard Assistance,1 Person Assistance Scooting Scooting to Edge of Bed Standby Assistance OT-Transfer Assessment Sit to and From Stand Sit to and from Stand Minimal Assistance Transfers Transfer Ability Minimal Assistance Technique Transfer Destination Chair,Toilet Transfer Technique Stand Step Pivot Devices Transfer Assistive Devices Gait Belt,Front Wheeled Walker Comments Mobility Comments pt unsteady on feet, especially on turns OT- Gait Assessment Gait Gait Assistance Required: Contact Guard Assist,Minimum Assistance Distance (Feet) 20 Assistive Devices Assistive Device Gait Belt,Front Wheeled Walker Comments Gait Ability Comments Pt unsteady on turns and in tight spaces such as bathroom; has difficulty fully advancing LLE and has step to gait pattern; needs min assist to keep FWW close initially OT- Balance Assessment Sitting Balance and Reactions Static Sitting Balance Ability Good Dynamic Sitting Balance Ability Good Standing Balance and Reactions Static Standing Balance Ability Fair Dynamic Standing Balance Ability Fair Comments Other Balance Tests/Deviations/Treatment Pt unsteady when standing to : pull pants over hips after toileting M9 OT- IP Assessment and Plan Start: 10/08/19 13:01 Freq: Status: Active Protocol: Document 10/09/19 11:04 PJElana (Rec: 10/09/19 11:22 PJElana [id number]) OT Summary Assessment and Plan Potential Rehabilitation Potential Good Summary OT Impairments Balance,Functional Cognition, Functional Mobility,Grooming, Dressing,Toileting,Bathing, Toilet Transfers,Shower Transfers Assessment Summary Pt more alert today with faster speed of processing but requires min to mod verbal cues to apply lumbar precautions during self care tasks. Pt unsteady on his feet and needs min assist for ambulation into bathroom for toileting. Pt presents with good participation and effort. He is motivated to increase strength and mobility and return to independent living. Recommend SNF vs IPR at d/c for further rehab services. Goals Grooming Goal Standby Assistance Dressing Goal Standby Assistance,Long Handled Shoe Horn,Experimental Rocket Sled Mechanic,Sock Aid Toileting Goal Independent Bathing Goal Standby Assistance,Grab Bars, Hand Held Shower Sprayer Toilet Transfer Goal Standby Assistance Shower Transfer Goal Contact Guard Assistance Patient/Caregiver Education Goal Demonstrate Post-Op Precautions,Demonstrate Energy Conservation and Pacing OT-Other Goals Grooming to be done standing at sink with good body mechanics and safety awareness. Days to Meet Goals 7 Frequency of Treatment Frequency Of Treatment Once a Day Treatment Plan OT Treatment Plan ADL Training,Functional Mobility,Patient/Family Education,Discharge Planning Discharge Recommendations OT Discharge Recommendations SNF Rehab,Acute Rehab
--- NOTE | 2019-10-09 11:50 | PT.IPTN ---
Current Diagnoses Spondylolisthesis, lumbar region (10/07/19) Spinal stenosis, lumbar region with neurogenic claudication (10/07/19) Surgery Performed Operation Date: 10/07/19 07:45 Actual Procedures p L4-5 & L5-S1 laminectomy and instrumented fusion w/bone graft - Garrick Gray MD Physical Therapy Treatment Note M2 PT-IP Current Condition Start: 10/07/19 14:33 Freq: NEEDED Status: Active Protocol: Document 10/07/19 15:45 AW (Rec: 10/07/19 16:17 AW [id number]) Physical Therapy Current Condition Current Condition Evaluation Date 10/07/19 Treatment Diagnosis s/p L4-5 L5-S1 TLIF, impaired mobility Onset Date 10/07/19 Precautions Lumbar Precautions Log Roll,No Twisting,Limit Bending,Lifting Restriction of 10 lbs,Gait Belt above Incisional Area Weight Bearing Status Weight Bearing Status Full Weight Bearing M3 PT-IP Subjective Start: 10/07/19 14:33 Freq: NEEDED Status: Active Protocol: Document 10/09/19 11:19 SP (Rec: 10/09/19 15:37 SP [id number]) Subjective Physical Therapy Visit Type Type Treatment Note Visit Start Time 11:19 Visit Stop Time 11:50 Total Visit Minutes 31 Number of LENS BLOCKER Visits 2 Physical Therapy Visit Comments Patient Comments Pt was laying in bed when arrived, agreeable to PT. Patient Goals May go to SNF for more strengthening, unsure if am strong enough to go home alone yet. Therapy Pain Assessment Pain When Pain Assessed During Mobility Pain Present Pain Present Pain Reported Location low back Intensity 5 Scale Used 0/10 at rest, 5/10 with mobiltiy Pain Management Techniques Re-positioning,Timing of Activity with Medications M4 PT-IP Mobility and Gait Start: 10/07/19 14:33 Freq: NEEDED Status: Active Protocol: Document 10/09/19 11:19 SP (Rec: 10/09/19 15:37 SP [id number]) PT-Bed Mobility Assessment Rolling Type of Rolling Log Rolling,Roll to Right Level of Assist Contact Guard Assistance Supine to Sit Supine to Sit Contact Guard Assistance, Bedrails Sit to Supine Sit to Supine Minimal Assistance,1 Person Assistance,Bedrails Scooting Scooting to Edge of Bed Standby Assistance PT-Transfer Assessment Sit to and From Stand Sit to and from Stand Contact Guard Assistance, Minimal Assistance,1 Person Assistance,Use of Upper Extremities Equipment Transfer Assistive Device Gait Belt,Front Wheeled Walker ,4 Wheeled Walker Orthotic/Prosthetic Devices or Brace: No Transfers Transfer Destination Chair Transfer Technique Pt ambulated with FWW Transfer Ability Level of Assist Contact Guard Assistance, Minimal Assistance,Use of Upper Extremities Comments Mobility Comments Pt was able to complete log roll to R and supine to sitting CGA with HOB flat use of bed rail for support as uses head board post at home. Pt was able to scoot to EOB himself CGA, required Min A for R>L LE into bed with proper log roll end of tx and center himself SBA HOB flat with use of bed rail for self assistance. Pt was able to step pivot usign fWW bed to chair CGA with noted knee flexion R>L LE but stable with moderate BUE WB on FWW, cued x1 for proper hand placement prior to sitting and upright standing posture. Pt layed back in bed end of tx when returned from walk with call light and all needs within reach when left. Gait Assessment Gait Gait Assistance Required: Contact Guard Assist,1 Person Assist Distance (Feet) 160 Able to Maintain Weight Bearing Status Yes During Gait Assistive Devices Assistive Device Gait Belt,4 Wheeled Walker Orthotic/Prosthetic Devices or Brace: No Gait Deviations General Gait Pattern Antalgic,Decreased Stride Length,Decreased Feet Clearance,Flexed Trunk,Lateral Trunk Lean,Step-to Gait Factors Limiting Gait Function Factors Limiting Gait Function Decreased Activity Tolerance, Decreased Strength,Limited Range of Motion,Pain,Poor Balance,Poor Safety Awareness Comments Gait Comments Pt was able to ambulate approx 160 ft using 4WW with noted flexed trunk posture and slight R lateral lean, patient demonstrated self corrections without cuing body closer to 4WW and upright posture, required 3 brief stopped rests for energy conservation not more than CGA was required. Stair Climbing Assessment Comments Stair Climbing Comments Not assessed. Pt does not need to climb stairs at home. PT-Balance Assessment Sitting Balance and Reactions Static Sitting Balance Ability Good Dynamic Sitting Balance Ability Good Standing Balance and Reactions Static Standing Balance Ability Fair Dynamic Standing Balance Ability Fair Device Used RW M5 PT-IP Objective Assessments Start: 10/07/19 14:33 Freq: NEEDED Status: Active Protocol: Document 10/07/19 15:45 AW (Rec: 10/07/19 16:17 AW [id number]) Orientation Orientation/Cognition Level of Alertness Alert Orientation Name,Day of Week,Place, Situation Language Function Ability No Deficits Noted,Hard of Hearing Safety Awareness Decreased Safety Awareness Memory Description No Deficits Noted Comments Pt wears hearing aids which are effective in correcting his hearing impairment. Gross Range of Motion Upper Extremity ROM Assessment Within Functional Limits Lower Extremity ROM Assessment Bilaterally Impaired Impairments R LE lacking ~10 degrees; L LE lacks ~5 degrees knee extension, even passively. Strength Upper Extremity Strength Assessment Within Functional Limits Lower Extremity Strength Assessment Bilaterally Impaired Hip 4-/5 Knee 4+/5 Ankle 4+/5 Coordination Assessment Gross Coordination Gross Coordination WNL Sensation Assessment Sensation Gross Sensation WNL M6 PT-IP Treatment Start: 10/07/19 14:33 Freq: NEEDED Status: Active Protocol: Document 10/08/19 13:55 LJ (Rec: 10/08/19 14:34 LJ [email or web address]) Physical Therapy Treatment Exercises Exercises Gluteal Sets,Quad Sets, Straight Leg Raises,Seated Knee Flexion/Extension Other Treatments Other Treatment Performed Mini squats, marching in seated and standing, scapular retraction, c-spine extension M7 PT-IP Assessment and Plan Start: 10/07/19 14:33 Freq: NEEDED Status: Active Protocol: Document 10/09/19 11:19 SP (Rec: 10/09/19 15:37 SP [id number]) PT Summary Assessment and Plan Potential Rehabilitation Potential Fair Status of Condition at Evaluation Evolving Summary Impairments Pain,ROM,Strength,Balance,Bed Mobility,Transfers,Gait, Activity Tolerance Assessment Summary See mobility comments. Pt required CGA- Min A during bedmobility, CGA sit to stand with occasional cuing for brake mgt prior to sit/stand for safety. Pt is unsafe to return home without 24/7 care. Will need SNF to imoprove strength, gait, and balance. Goals Bed Mobility Goal Independent Transfer Goal Independent,Front Wheeled Walker,Four Wheeled Walker Gait Goal Independent,Front Wheel Walker ,Four Wheel Walker Gait Distance 200 Other Goals transfer and gait goals to be assessed with FWW vs 4WW for safety. Days to Meet Goals 2 Frequency of Treatment Frequency Of Treatment Twice a Day Treatment Plan Physical Therapy Treatment Plan Bed Mobility Training,Transfer Training,Gait Training, Therapeutic Exercise,Balance Retraining,Post Op Education, Discharge Planning,Hot or Cold Pack,Neuromuscular Re-ed, Coordination Retraining,Manual Therapy Other Recommendations and Next Treatment Reassess gait with 4WW, review Focus precautions and log roll, balance activities Recommendations To Nursing Amount of Assist Needed 1 Person Assist Discharge Recommendations PT Discharge Recommendations SNF Rehab
--- NOTE | 2019-10-09 12:23 | CM.DPNOTE ---
Addendum entered by Doris Finch, HURRICANE TRACKER 10/09/19 14:02: Pt/family given update Addendum entered by Doris Finch, HURRICANE TRACKER 10/09/19 12:26: PASRR completed Original Note: DCP Cont According to Kareen at [facility], they are contracted w/pt's [employer] MCR plan and pt is accepted pending auth thru [employer]. This HURRICANE TRACKER faxed clinicals needed for Kareen to begin authorization request through [employer]. Now awaiting auth to be in place before pt can transfer to [facility]
--- NOTE | 2019-10-09 15:52 | PT.IPTN ---
Current Diagnoses Spondylolisthesis, lumbar region (10/07/19) Spinal stenosis, lumbar region with neurogenic claudication (10/07/19) Surgery Performed Operation Date: 10/07/19 07:45 Actual Procedures p L4-5 & L5-S1 laminectomy and instrumented fusion w/bone graft - Garrick Gray MD Physical Therapy Treatment Note M2 PT-IP Current Condition Start: 10/07/19 14:33 Freq: NEEDED Status: Active Protocol: Document 10/07/19 15:45 AW (Rec: 10/07/19 16:17 AW [id number]) Physical Therapy Current Condition Current Condition Evaluation Date 10/07/19 Treatment Diagnosis s/p L4-5 L5-S1 TLIF, impaired mobility Onset Date 10/07/19 Precautions Lumbar Precautions Log Roll,No Twisting,Limit Bending,Lifting Restriction of 10 lbs,Gait Belt above Incisional Area Weight Bearing Status Weight Bearing Status Full Weight Bearing M3 PT-IP Subjective Start: 10/07/19 14:33 Freq: NEEDED Status: Active Protocol: Document 10/09/19 15:39 SP (Rec: 10/09/19 17:21 SP [email or web address]) Subjective Physical Therapy Visit Type Type Treatment Note Visit Start Time 15:39 Visit Stop Time 15:52 Total Visit Minutes 13 Number of MEDIA BUYER Visits 3 Physical Therapy Visit Comments Patient Comments Pt was seated on toilet when arrived, nursing nearby in hallway ready for call light. Pt agreeable to working with PT. Therapy Pain Assessment Pain When Pain Assessed During Mobility Pain Present Pain Present Pain Reported Location low back Intensity 6 Scale Used Numeric (1 - 10) Pain Management Techniques Re-positioning,Timing of Activity with Medications M4 PT-IP Mobility and Gait Start: 10/07/19 14:33 Freq: NEEDED Status: Active Protocol: Document 10/09/19 15:39 SP (Rec: 10/09/19 17:21 SP [email or web address]) PT-Transfer Assessment Sit to and From Stand Sit to and from Stand Contact Guard Assistance, Minimal Assistance,1 Person Assistance,Use of Upper Extremities Equipment Transfer Assistive Device Gait Belt,Front Wheeled Walker ,4 Wheeled Walker Orthotic/Prosthetic Devices or Brace: No Transfers Transfer Destination Chair Transfer Technique Pt ambulated with FWW and 4WW Transfer Ability Level of Assist Contact Guard Assistance, Minimal Assistance,Use of Upper Extremities Comments Mobility Comments Pt was in bathroom when arrived agreeable to PT assist . Pt was ableto complete self hygiene and complete sit to stand using R HR and downward LUE WB on FWW with [place] from toilet. Pt required Min A for brief mgt behind, self front mgt. Pt walked to sink usign FWW CGA- Madison of 1 with noted decreased LLE foot clearance and step to gait. Pt demonstrated FWW up to sink counter and self comments upright posture with corrections to maintain while washing hands and intermittent UE WB on through hands on counter for balance. Pt requested seated rest prior to walk with preferred 4WW as did in the am. Pt good safety 4WW brake mgt prior to standing and sitting and hand placement. Pt was in chair when with chair alarm on, called light and all needs in reach. Gait Assessment Gait Gait Assistance Required: Contact Guard Assist,Minimum Assistance,1 Person Assist Distance (Feet) 160 Able to Maintain Weight Bearing Status Yes During Gait Assistive Devices Assistive Device Gait Belt,Front Wheeled Walker ,4 Wheeled Walker Orthotic/Prosthetic Devices or Brace: No Gait Deviations General Gait Pattern Antalgic,Decreased Stride Length,Decreased Feet Clearance,Flexed Trunk,Lateral Trunk Lean,Step-to Gait Factors Limiting Gait Function Factors Limiting Gait Function Decreased Activity Tolerance, Decreased Strength,Limited Range of Motion,Pain,Poor Balance,Poor Safety Awareness Comments Gait Comments Pt was able to ambulate in room with FWW CGA- Min A toilet to chair using FWW with increase support seondary to decreased stride length and foot clearance step to gait, cued upright posture and quad faciclitation for awareness of knee extension. Pt improved upright posture, foot clearance and stride approx same 160 ft distance using 4WW with increase cuing this afternoon for decreased stride length (to big steps), decrease pacing and body closer to 4WW as distance progressed for safety, pt stated trying to get back to room. MEDIA BUYER recommended can do standing and seated rests breaks for rest recovery and sit on 4WW for energy conservation. Stair Climbing Assessment Comments Stair Climbing Comments Not assessed. Pt does not need to climb stairs at home. PT-Balance Assessment Sitting Balance and Reactions Static Sitting Balance Ability Good Dynamic Sitting Balance Ability Good Standing Balance and Reactions Static Standing Balance Ability Fair Dynamic Standing Balance Ability Fair Device Used RW Comments Other Balance Tests/Deviations/Treatment Pt heavy WB on FWW initially : during gait bathroom to chair but improved with use of 4Ww in hallway after seated rest. M5 PT-IP Objective Assessments Start: 10/07/19 14:33 Freq: NEEDED Status: Active Protocol: Document 10/07/19 15:45 AW (Rec: 10/07/19 16:17 AW [id number]) Orientation Orientation/Cognition Level of Alertness Alert Orientation Name,Day of Week,Place, Situation Language Function Ability No Deficits Noted,Hard of Hearing Safety Awareness Decreased Safety Awareness Memory Description No Deficits Noted Comments Pt wears hearing aids which are effective in correcting his hearing impairment. Gross Range of Motion Upper Extremity ROM Assessment Within Functional Limits Lower Extremity ROM Assessment Bilaterally Impaired Impairments R LE lacking ~10 degrees; L LE lacks ~5 degrees knee extension, even passively. Strength Upper Extremity Strength Assessment Within Functional Limits Lower Extremity Strength Assessment Bilaterally Impaired Hip 4-/5 Knee 4+/5 Ankle 4+/5 Coordination Assessment Gross Coordination Gross Coordination WNL Sensation Assessment Sensation Gross Sensation WNL M6 PT-IP Treatment Start: 10/07/19 14:33 Freq: NEEDED Status: Active Protocol: Document 10/09/19 15:39 SP (Rec: 10/09/19 17:21 SP [email or web address]) Physical Therapy Treatment Exercises Exercises Quad Sets M7 PT-IP Assessment and Plan Start: 10/07/19 14:33 Freq: NEEDED Status: Active Protocol: Document 10/09/19 15:39 SP (Rec: 10/09/19 17:21 SP [email or web address]) PT Summary Assessment and Plan Potential Rehabilitation Potential Fair Status of Condition at Evaluation Evolving Summary Impairments Pain,ROM,Strength,Balance,Bed Mobility,Transfers,Gait, Activity Tolerance Assessment Summary See mobility comments. Pt required CGA- Min A during bedmobility, CGA sit to stand with occasional cuing for brake mgt prior to sit/stand for safety. Pt is unsafe to return home without 24/7 care. Will need SNF to imoprove strength, gait, and balance. Goals Bed Mobility Goal Independent Transfer Goal Independent,Front Wheeled Walker,Four Wheeled Walker Gait Goal Independent,Front Wheel Walker ,Four Wheel Walker Gait Distance 200 Other Goals transfer and gait goals to be assessed with FWW vs 4WW for safety. Days to Meet Goals 2 Frequency of Treatment Frequency Of Treatment Twice a Day Treatment Plan Physical Therapy Treatment Plan Bed Mobility Training,Transfer Training,Gait Training, Therapeutic Exercise,Balance Retraining,Post Op Education, Discharge Planning,Hot or Cold Pack,Neuromuscular Re-ed, Coordination Retraining,Manual Therapy Other Recommendations and Next Treatment HEP prior to gait for standing Focus / gait strengthen knee extension, Reassess gait with 4WW, review precautions and log roll. Recommendations To Nursing Amount of Assist Needed 1 Person Assist Discharge Recommendations PT Discharge Recommendations SNF Rehab
[2019-10-09] MEDS: GABAPENTIN 300 MG CAPSULE PO (20:29)
[2019-10-09] MEDS: SENNOSIDES 8.6 MG TABLET 17.2 MG PO (20:30)
[2019-10-09] MEDS: ROSUVASTATIN 10 MG TABLET 20 MG PO (20:30)
[2019-10-09] MEDS: HYDROMORPHONE 0.5 MG INJ IV (21:41)
--- NOTE | 2019-10-09 22:21 | PC.NURSE ---
Evening Shift Note- Patients dressing reinforced with gauze and tegaderm. Drainage noted to be leaking out of bottom of dressing. blisters noted outside of the tegaderm and also underneath the tegaderm MD aware of blisters. will continue to monitor.
[2019-10-10] MEDS: HYDROCODONE/ACET 5/325 TABLET 2 TAB PO ×4 (03:17→15:50)
[2019-10-10 04:25] VITALS: BP 103/55; PULSE 73; RESP 19; TEMP 36.6; O2SAT 95
[2019-10-10 07:50] VITALS: BP 143/64; PULSE 70; RESP 18; TEMP 36.4; O2SAT 97
[2019-10-10] MEDS: POLYETHYLENE GLYCOL 3350 17 GM POWD.PACK PO (08:13)
[2019-10-10] MEDS: DOCUSATE 100 MG CAPSULE PO (08:13)
[2019-10-10] MEDS: METOPROLOL IR 25 MG TABLET 12.5 MG PO (08:14)
[2019-10-10] MEDS: ASPIRIN EC 81 MG TABLET PO (08:14)
[2019-10-10] MEDS: CELECOXIB 200 MG CAPSULE PO (08:15)
[2019-10-10] MEDS: SODIUM CHLORIDE 0.9% FLUSH 10 ML IV (08:16)
--- NOTE | 2019-10-10 09:37 | OT.IP.TRT ---
Current Diagnoses Spondylolisthesis, lumbar region (10/07/19) Spinal stenosis, lumbar region with neurogenic claudication (10/07/19) Surgery Performed Operation Date: 10/07/19 07:45 Actual Procedures p L4-5 & L5-S1 laminectomy and instrumented fusion w/bone graft - Garrick Gray MD Occupational Therapy Treatment Note M2 OT-IP Current Condition Start: 10/08/19 13:01 Freq: Status: Active Protocol: Document 10/08/19 14:40 PJM (Rec: 10/08/19 15:11 PJM [id number]) Occupational Therapy Current Condition Current Condition Evaluation Date 10/08/19 Treatment Diagnosis decr'd self care, mobility s/p L4-5, L5-S1 lami/fusion Diagnosis Onset Date 10/07/19 Post Operative Precautions Lumbar Precautions Log Roll,No Twisting,Limit Bending,Lifting Restriction of 10 lbs,Gait Belt above Incisional Area M3 OT- IP Subjective and Pain Start: 10/08/19 13:01 Freq: Status: Active Protocol: Document 10/10/19 11:15 [facility] (Rec: 10/10/19 11:30 [facility] [email or web address]) OT- Subjective Occupational Therapy Visit Type Type Treatment Note Visit Start Time 09:37 Visit Stop Time 10:35 Total Visit Minutes 58 Occupational Therapy Visit Comments Patient Comments Pt agreeable to do grooming and shower. Patient/Caregiver Goals To go to skilled rehab and get stronger and then eventually home. OT Pain Assessment Pain When Pain Assessed At Rest Pain Present Pain Present Pain Reported Location low back Intensity 6 Scale Used Numeric (1 - 10) M4 OT- IP ADL's Start: 10/08/19 13:01 Freq: Status: Active Protocol: Document 10/10/19 11:15 [facility] (Rec: 10/10/19 11:30 [facility] [email or web address]) OT ADL-Grooming General Evaluation Grooming Ability Standby Assistance Comments OT Grooming Comments Pt having to sit down and therefore use of his 4ww to sit. Pt needing cues not to twist or bend. OT ADL-Oral Care General Eval Oral Care Ability Independent OT ADL-Dressing General Eval Lower Body Dressing Ability Contact Guard Assistance Areas Needing Assistance Underpants/Brief Assistive Devices Dressing Assistive Devices Grinding Wheel Dresser,Sock Aid Comments OT Dressing Comments Pt needing CGA to stand while pulling up his brief due to unsteadiness. Pt also needing heavy use of grab bar to help to stand as well. OT ADL-Bathing Bathing Type Bathing Type Shower General Evaluation Bathing Ability Minimal Assistance Areas Needing Assistance Retrieving/Setting Up Items, Wash/Dry Back Devices Bathing Equipment Shower Chair with Arms,Grab Bars Comments OT Bathing Comments Assist to help wash his hair and back. VC to not not twist or bend too much. M5 OT- IP IADL's Start: 10/08/19 13:01 Freq: Status: Active Protocol: Document 10/08/19 14:40 PJM (Rec: 10/08/19 15:11 PJM [id number]) OT-Instrumental Activities of Daily Living Deficits IADL Deficits Identified Deficits Home Safety Awareness Awareness of Need for Assistance at Home Good Awareness Medication Management Medication Management No Deficits Identified Money Management Money Management No Deficits Identified Meal Preparation Meal Preparation Caregiver Provides Assist Meal Preparation Comments son, daughter in law and friend can assist PRN Field Specialist Field Specialist Caregiver Provides Assist Field Specialist Comments son, daughter in law and friend can assist PRN Driving Driving Caregiver Provides Assist Driving Comments son, daughter in law and friend can assist PRN M6 OT- IP Functional Cognition Start: 10/08/19 13:01 Freq: Status: Active Protocol: Document 10/10/19 11:15 [facility] (Rec: 10/10/19 11:30 [facility] [email or web address]) Cognitive Factors Limiting Selfcare Function Cognitive Ability Level of Alertness Alert Attention Span Ability Capable of Focused Attention, Capable of Sustained Attention Ability to Follow Commands Able to Follow One Step Commands Safety Awareness Decreased Ability to Apply Precautions,Underestimates Need for Assistance Problem Solving Ability Needs Assist to Identify Solutions Cognitive Comments Cognitive Assessment Comments Pt needing MOD vc to help incorporate back precautions for Adl and functional mobility needs. VC for FWW safety . Pt needing vc to help lift up his left foot as tends to drag it. Pt forgetting how to use the sock aid and still needing max A for proper use. M7 OT- IP Mobility and Balance Start: 10/08/19 13:01 Freq: Status: Active Protocol: Document 10/10/19 11:15 [facility] (Rec: 10/10/19 11:30 [facility] [email or web address]) OT-Transfer Assessment Sit to and From Stand Sit to and from Stand Contact Guard Assistance Transfers Transfer Ability Minimal Assistance,Moderate Assistance Technique Transfer Destination Chair,Shower Stall Transfer Technique Stand Step Pivot Devices Transfer Assistive Devices Gait Belt,Front Wheeled Walker Comments Mobility Comments MODA to help step over the threshold of the shower. M8 OT- IP Objective Assessments Start: 10/08/19 13:01 Freq: Status: Active Protocol: Document 10/08/19 14:40 PJM (Rec: 10/08/19 15:11 PJM [id number]) OT Gross Range of Motion Upper Extremity Range of Motion Assessment Within Functional Limits OT Strength Upper Extremity Strength Assessment Within Functional Limits OT- Coordination Assessment Comments Coordination Comments BUE WFL OT-Muscle Tone Assessment Muscle Tone WNL Yes OT Sensation Assessment Comments Summary Comments BUE WNL per pt Edema Edema Absent M9 OT- IP Assessment and Plan Start: 10/08/19 13:01 Freq: Status: Active Protocol: Document 10/10/19 11:15 [facility] (Rec: 10/10/19 11:30 [facility] [email or web address]) OT Summary Assessment and Plan Potential Rehabilitation Potential Good Summary OT Impairments Balance,Functional Cognition, Functional Mobility,Grooming, Dressing,Toileting,Bathing, Toilet Transfers,Shower Transfers Progress Towards Goals Progressing Toward Goals Assessment Summary Pt main barrier is still decreased balance during dynamic balance needs, decreased incorporation of back precautions for Adl and functional mobility needs, and decreased overall safety awareness. Pt will benefit from skilled rehab prior to going home. Goals Grooming Goal Independent Dressing Goal Independent Toileting Goal Independent Bathing Goal Independent Toilet Transfer Goal Independent Shower Transfer Goal Independent Patient/Caregiver Education Goal Demonstrate Post-Op Precautions,Caregiver Independent Assisting Patient Days to Meet Goals 7 Frequency of Treatment Frequency Of Treatment Once a Day Treatment Plan OT Treatment Plan ADL Training,Functional Mobility,Patient/Family Education,Discharge Planning Discharge Recommendations OT Discharge Recommendations SNF Rehab,Acute Rehab
--- NOTE | 2019-10-10 10:29 | PC.NURSE ---
Addendum entered by Jennifer Duran R.N. 10/10/19 15:38: Report called to MELANIE Sabillon at [facility] at 1425 for pt status update. No further questions. Addendum entered by Jennifer Duran R.N. 10/10/19 15:11: Returned to pt his own bottle of Prostagenix retrieved from pharmacy and pt's eye drops of fluormetholone. PRN Vistaril given to pt at 1454 prior to discharge. Discharge summary packet also given to pt to read as well as [facility] Pt has all his other belongings, bilateral hearing aids are currently in pt's ears, toiletry bag, clothes, cell phone. Awaiting discharge transport around 1530. Original Note: Day Shift- Pt OOB to shower with OT assist. Verbal order by OSCAR Segundo to change lower back surgical dressing. At 1010, lower back dressing removed. Incisions X2 well approximated with sutures intact. Area cleansed with NS and gauze, pt dry, pt tolerated well and coversite X1 applied. Pt has a ring around previous tegaderm dressing of non-intact (X2) and intact blisters (X2) Skin fragile, pt denied pain. small allevyn dressings covering non-intact blisters to left lower and right lower. Small allevyn dressing also covering both intact blisters to mid left and right of dressing.
--- NOTE | 2019-10-10 10:39 | PT.IPTN ---
Current Diagnoses Spondylolisthesis, lumbar region (10/07/19) Spinal stenosis, lumbar region with neurogenic claudication (10/07/19) Surgery Performed Operation Date: 10/07/19 07:45 Actual Procedures p L4-5 & L5-S1 laminectomy and instrumented fusion w/bone graft - Garrick Gray MD Physical Therapy Treatment Note M2 PT-IP Current Condition Start: 10/07/19 14:33 Freq: NEEDED Status: Active Protocol: Document 10/07/19 15:45 AW (Rec: 10/07/19 16:17 AW [id number]) Physical Therapy Current Condition Current Condition Evaluation Date 10/07/19 Treatment Diagnosis s/p L4-5 L5-S1 TLIF, impaired mobility Onset Date 10/07/19 Precautions Lumbar Precautions Log Roll,No Twisting,Limit Bending,Lifting Restriction of 10 lbs,Gait Belt above Incisional Area Weight Bearing Status Weight Bearing Status Full Weight Bearing M3 PT-IP Subjective Start: 10/07/19 14:33 Freq: NEEDED Status: Active Protocol: Document 10/10/19 09:03 SHANE (Rec: 10/10/19 10:39 SHANE [email or web address]) Subjective Physical Therapy Visit Type Type Treatment Note Visit Start Time 09:03 Visit Stop Time 09:32 Total Visit Minutes 29 Physical Therapy Visit Comments Patient Comments Pt in bathroom with nursing. Willing to work with PT Therapy Pain Assessment Pain When Pain Assessed During Mobility Pain Present Pain Present Pain Reported M4 PT-IP Mobility and Gait Start: 10/07/19 14:33 Freq: NEEDED Status: Active Protocol: Document 10/10/19 09:03 SHANE (Rec: 10/10/19 10:39 SHANE [id number]) PT-Transfer Assessment Sit to and From Stand Sit to and from Stand Contact Guard Assistance,Use of Upper Extremities Equipment Transfer Assistive Device Gait Belt,4 Wheeled Walker Orthotic/Prosthetic Devices or Brace: No Transfers Transfer Destination Chair Transfer Technique Pt ambulated with and 4WW Transfer Ability Level of Assist Contact Guard Assistance,Use of Upper Extremities Comments Mobility Comments Pt was in bathroom when arrived agreeable to work with PT. Pt used FWW to ambulate to sink and wash hands. He leaned on sink with elbows and was cued to keep back straight using hip hinge which he was able to do. Stood at sink stretching befor trading FWW for his 4WW to walk in the hallway Gait Assessment Gait Gait Assistance Required: Contact Guard Assist,1 Person Assist Distance (Feet) 160 Able to Maintain Weight Bearing Status Yes During Gait Assistive Devices Assistive Device Gait Belt,4 Wheeled Walker Orthotic/Prosthetic Devices or Brace: No Gait Deviations General Gait Pattern Antalgic,Decreased Stride Length,Decreased Feet Clearance,Flexed Trunk,Lateral Trunk Lean,Step-to Gait Factors Limiting Gait Function Factors Limiting Gait Function Decreased Activity Tolerance, Decreased Strength,Limited Range of Motion,Pain,Poor Balance,Poor Safety Awareness Comments Gait Comments Pt ambulated in room with FWW then traded for 4WW to walk in hallway. Pt completed 160' without rest break but would attempt to stretch his legs and back during ambulation. Pt ambulates with flexed knees and attempts to straighten them when cued but only partially successful. Uses brakes appropriately and manages 4WW relatively safely. Once returned to room pt ambulated to chair and performed controlled return to sitting. Performed seated exercises M5 PT-IP Objective Assessments Start: 10/07/19 14:33 Freq: NEEDED Status: Active Protocol: Document 10/07/19 15:45 AW (Rec: 10/07/19 16:17 AW [id number]) Orientation Orientation/Cognition Level of Alertness Alert Orientation Name,Day of Week,Place, Situation Language Function Ability No Deficits Noted,Hard of Hearing Safety Awareness Decreased Safety Awareness Memory Description No Deficits Noted Comments Pt wears hearing aids which are effective in correcting his hearing impairment. Gross Range of Motion Upper Extremity ROM Assessment Within Functional Limits Lower Extremity ROM Assessment Bilaterally Impaired Impairments R LE lacking ~10 degrees; L LE lacks ~5 degrees knee extension, even passively. Strength Upper Extremity Strength Assessment Within Functional Limits Lower Extremity Strength Assessment Bilaterally Impaired Hip 4-/5 Knee 4+/5 Ankle 4+/5 Coordination Assessment Gross Coordination Gross Coordination WNL Sensation Assessment Sensation Gross Sensation WNL M6 PT-IP Treatment Start: 10/07/19 14:33 Freq: NEEDED Status: Active Protocol: Document 10/10/19 09:03 SHANE (Rec: 10/10/19 10:39 LJ [email or web address]) Physical Therapy Treatment Exercises Exercises Gluteal Sets,Quad Sets, Straight Leg Raises M7 PT-IP Assessment and Plan Start: 10/07/19 14:33 Freq: NEEDED Status: Active Protocol: Document 10/10/19 09:03 SHANE (Rec: 10/10/19 10:39 SHANE [id number]) PT Summary Assessment and Plan Potential Rehabilitation Potential Fair Status of Condition at Evaluation Evolving Summary Impairments Pain,ROM,Strength,Balance,Bed Mobility,Transfers,Gait, Activity Tolerance Assessment Summary Pt CGA with min cueing for hand placement and 4WW management. Would benefit from increased ambulationa dn more work with hip hinging and posture including hip and knee extension. Will require SFN prior to DC home. Goals Bed Mobility Goal Independent Transfer Goal Independent,Front Wheeled Walker,Four Wheeled Walker Gait Goal Independent,Front Wheel Walker ,Four Wheel Walker Gait Distance 200 Other Goals transfer and gait goals to be assessed with FWW vs 4WW for safety. Days to Meet Goals 2 Frequency of Treatment Frequency Of Treatment Twice a Day Treatment Plan Physical Therapy Treatment Plan Bed Mobility Training,Transfer Training,Gait Training, Therapeutic Exercise,Balance Retraining,Post Op Education, Discharge Planning,Hot or Cold Pack,Neuromuscular Re-ed, Coordination Retraining,Manual Therapy Other Recommendations and Next Treatment HEP prior to gait for standing Focus / gait strengthen knee extension, Reassess gait with 4WW, review precautions and log roll. Recommendations To Nursing Amount of Assist Needed 1 Person Assist Discharge Recommendations PT Discharge Recommendations SNF Rehab Other Discharge Recommendations Home with assist + HH vs OP PT
--- NOTE | 2019-10-10 10:57 | PM.DS.1 ---
History of Present Illness History of Present Illness Date Patient Seen: 10/10/19 Time Patient Seen: 10:57 Chief complaint: Translaminar Interbody Fusion/Laminotomy Narrative: Please see HPI previously recorded in the chart. Discharge Providers Provider Date of admission: 10/07/19 06:12 Discharge Date: 10/10/19 Primary care physician: Agus Denny MD Consults: 10/07/19 13:03 Consult to Occupational Therapy Evaluate & Treat Comment: Physician Instructions: Evaluate and treat Consult to Physical Therapy Evaluate & Treat Comment: Physician Instructions: Evaluate and Treat Discharge provider: Delal Costa PA-C Summary Hospital Course Discharge Diagnosis: s/p L4-5, L5-S1 TLIF with cages Hospital Course: Patient is a 79 year old male with intractable pain from lumbar stenosis. They had failed conservative management and requested operative intervention. Risks and benefits of surgery were discussed and appropriate consents were obtained. After obtaining informed consent patient was taken to the operating room where he underwent a L4-5, L5-S1 TLIF with cages with Dr. Gray which he tolerated well with no complications. He has worked with PT and OT throughout his hospitalization but has been slow to mobilize, and lives alone requiring additional assistance. Pain has been well controlled with [place] and Celebrex. Voiding and tolerating a diet appropriately. Dressing changed prior to discharge. He is stable for discharge to SNF later today. Status at Discharge Cognitive/behavioral status at discharge: oriented Functional status at discharge: uses cane/walker Overall status at discharge: patient is progressing back to baseline Exam Vital Signs (past 8 hours): - 10/10/19 04:25 10/10/19 07:50 Temperature 97.9 F 97.6 F Pulse Rate 73 70 Respiratory Rate 19 18 Blood Pressure 103/55 L 143/64 H Pulse Oximetry 95 97 Oxygen Delivery Method Room Air Oxygen Flow Rate 0 Narrative Exam Narrative: 79 year old male in no acute distress, Alert and oriented. Dressing over lying lumbar spine with minimal dry drainage, peeling up along edge. Small 1 cm tape blister to the right-hand side. 5/5 motor both lower extremities Objective Labs Result Diagrams: 10/08/19 05:27 Discharge Plan Discharge Plan Patient Disposition: SNF Transfer to: [facility] Under care of provider: facility physician Consult as needed: Dental, Hearing, Mental health, Podiatry and Vision Discharge orders & Medications Prescriptions: New celecoxib [Celebrex] 200 mg Capsule 200 mg PO BID PRN (Reason: pain) Qty: 60 RF: 0 hydrocodone-acetaminophen 5-325 mg Tablet 1 tab PO Q4HR PRN (Reason: Pain, Moderate (4-6)) Qty: 40 RF: 0 hydroxyzine pamoate 25 mg Capsule 25 mg PO Q4HR PRN (Reason: spasms) Qty: 20 RF: 0 Continued aspirin 81 mg Tablet,Delayed Release (Dr/Ec) 81 mg PO BID RF: 0 tramadol 50 mg Tablet 50 mg PO BID PRN (Reason: Pain) RF: 0 fluorometholone 0.1 % Drops,Suspension 1 drp EYE-RIGHT Q OTHER DAY RF: 0 rosuvastatin 20 mg Tablet 20 mg PO DAILY RF: 0 tadalafil [Cialis] 5 mg Tablet 5 mg PO DAILY PRN (Reason: Sexual Activity) RF: 0 metoprolol tartrate 25 mg Tablet 12.5 mg PO BID RF: 0 polyethylene glycol 3350 [Miralax] 17 gram Powder In Packet 17 g PO DAILY RF: 0 Prosta Genix 3 tab PO DAILY RF: 0 coenzyme Q10 [Co Q-10] 200 mg Capsule 200 mg PO BEDTIME RF: 0 Discontinued ibuprofen 200 mg Tablet 200 mg PO BID PRN (Reason: Pain) RF: 0 Follow up/Referrals: Agus Denny MD [Primary Care Provider] - Garrick Gray MD [Physician] - Discharge Health Status Multidrug resistant organism: No MDRO Precautions: [place] Diet/Activity/Treatments Diet: Diet as Tolerated Liquid consistency: Normal/Thin Food texture: Regular Activity: limited BLT 10 lbs max lift Skin/Wound/Dressing Care Report to your healthcare provider any signs of infection, such as:: chills, fever, night sweats, increased pain, unusual drainage and unusual redness Dressing: may change prn, may shower POD#5 (10/12/19) Special Rehabilitation Services Reason for rehabilitation: Post-operative therapy Rehab type: Physical therapy and Occupational therapy Visit Report/Discharge Packet Instructions: How to Prevent Falls, DI for Postoperative Pain, DI for Prescription Opioid Use, DI for Transforaminal Lumbar Interbody Fusion Visit Report Forms: Stroke Signs & Symptoms Discharge Data Primary Care Provider: Agus Denny Quality VTE Deep Vein Thrombosis/Pulmonary Embolism Present on Admission: No
[2019-10-10 12:11] VITALS: BP 109/54; PULSE 67; RESP 16; TEMP 36.3; O2SAT 95
--- NOTE | 2019-10-10 13:44 | CM.DPC ---
DCP Cont: Faxed signed med list, PASRR, discharge summary and SNF order to [facility] at fax # [phone]. PASRR and fax confirmation scanned in. Harjinder Roy Motorcycle Subassembler
[2019-10-10] MEDS: hydrOXYzine pamoate 25 MG CAPSULE PO (14:54)
--- NOTE | 2019-10-10 15:34 | CM.DPNOTE ---
DC Note: According to Kareen at [facility]; [employer] SNF auth is now in place and SNF van can pick pt up at 1530. Pt and family remain agreeable to this DCP. Requested that Carol, Senior Front End Engineer, fax DC ppk. MELANIE Rodriguez made aware of pt's p/u time this afternoon. Placed call to pt's son Jacob White, updated w/plan and time for pick, family will meet pt at the SNF this afternoon. P: DC to [facility] via cabulance today JW
--- NOTE | 2019-10-10 16:21 | PC.NURSE ---
Discharge Note Patient A&O, VSS, complaints of pain and medicated per MAR. Copy of discharge packet given to patient, no questions or concerns. All belongings packed and given to [facility] staff. Patient taken via wheelchair by [facility] staff.
== END 2019-10-10 15:30 | DRG 455 ==
PROVIDERS: Admitting Provider Orthopaedic Surgery; PCP Family Medicine; Visit Provider Orthopaedic Surgery
PROC: 0SG00AJ Fusion of Lumbar Vertebral Joint with Interbody Fusion Device, Posterior Approach, Anterior Column, Open Approach (ICD-10-PCS; principal; 2019-10-07 07:45)
DX: M48.062 Spinal stenosis, lumbar region with neurogenic claudication (principal); M43.16 Spondylolisthesis, lumbar region; E11.9 Type 2 diabetes mellitus without complications; E78.5 Hyperlipidemia, unspecified; I25.10 Atherosclerotic heart disease of native coronary artery without angina pectoris; Z96.651 Presence of right artificial knee joint; Z96.641 Presence of right artificial hip joint; M48.07 Spinal stenosis, lumbosacral region
CPT/HCPCS: 36415; 72100; 76000; 82962; 85014; 85018; 94760; 94762; 97110; 97116; 97161; 97165; 97530; 97535; C1776; J0330; J0595; J1100; J1170; J2250; J2274; J2405; J2704; J3010

== ENCOUNTER → 2022-01-02 11:13 | Outpatient (CLI) | payer OTHER, SELFPAY ==
[2019-10-07 13:31] VITALS: BMI 25.2
[2022-01-02 13:35] LABS: COVID19 -Nasal RAPID Negative (Negative)
== END ==
PROVIDERS: PCP Family Medicine; Visit Provider Family Medicine Sleep Medicine
DX: Z20.822 Contact with and (suspected) exposure to COVID-19 (principal)
CPT/HCPCS: 87635; C9803

== ENCOUNTER 2022-01-05 09:09 | Observation (INO) | payer OTHER, SELFPAY ==
[2019-10-07 13:31] VITALS: BMI 25.2
[2021-12-29 08:26] VITALS: BMI 25.7
[2022-01-03] VITALS (15 sets, daily range): BP systolic 91–133; BP diastolic 49–92; PULSE 68–78; RESP 7–19; TEMP 35.6–36.6; O2SAT 93–100; BMI 26.2
--- NOTE | 2022-01-03 11:32 | PM.PREOP ---
Pre-operative Note COVID-19 COVID-19 status: Negative Result date/Date tested (Pos, Neg/Pending): 01/02/22 Criteria for continued procedure: Expected advancement of disease process, Possibility delay results in more complex future surgery or treatment, Increased loss of function, Continuing or worsening of significant or severe pain, Deterioration of the patient's condition or overall health and Delay expected to result in less-positive ultimate med/surg outcome Interval Note History & Physical reviewed/Exam performed by Physician: Yes Changes to H&P: No
[2022-01-03] MEDS: CEFAZOLIN 2 GM/20 ML SYRINGE IV ×2 (12:30→20:20)
[2022-01-03] MEDS: LACTATED RINGERS 1,000 ML 42 ML IV (15:30)
[2022-01-03] MEDS: BUPIVACAINE LIPOSOME 266 MG/20 ML VIAL INJ (15:44)
[2022-01-03] MEDS: BUPIVACAINE 0.25% (PF) 30 ML, EPINEPHrine 0.3 MG INJ (15:45)
--- NOTE | 2022-01-03 16:18 | DI.RAD.S_ITS ---
PROCEDURE: XR LUMBAR SPINE 2-3V INDICATIONS: L3-4 TLIF TECHNIQUE: 2 postoperative views of the lumbar spine were acquired. COMPARISON: [facility], CR, XR LUMBAR SPINE 2 OR 3 VIEWS, 06/21/2020, 10:49. [facility], CR, XR LUMBAR SPINE 2-3V, 10/07/2019, 9:24. FINDINGS: Pedicle screw fixation spanning L3-S1 with intervertebral body spacers. The pedicle screws at L3 are new. Similar alignment. IMPRESSION: Intraoperative image guidance. Dictated by: Omid Ware M.D. on 01/03/2022 at 17:16 Approved by: Omid Ware M.D. on 01/03/2022 at 17:18
--- NOTE | 2022-01-03 16:24 | P.OP_ITS ---
Operative Date/Time/Diagnoses Date of procedure: 01/03/22 Time of procedure: 12:30 Pre-op diagnosis: 1. L3-4, L4-5, L5-S1 spinal stenosis 2. L3-4, L5-S1 spondylolisthesis 3. Hx of L4-5, L5-S1 fusion with pseudarthrosis and harware loosening Post-op diagnosis: same Procedure & Clinicians Procedure: 1. L3-4 posterolateral and posterior interbody fusion 2. L3-4 posterior interbody cage placement 3. L4-5, L5-S1 posterior non-segmental instrumentation removal 4. L4-5, L5-S1 revision laminectomy with exploration of fusion 5. L3-4, L4-5, L5-S1 posterior segmental instrumentation with pedicle screw placement 6. L4-5, L5-S1 posterolatearl fusion 7. Nesbit of bone marrow from iliac crest through a separate incision 8. Utilization of microsurgical technique and operating microscope Same procedure as scheduled: Yes Indications: Patient has been having chronic back pain and worsening lumbar radiculopathy. Patient failed multiple conservative management with worsening pain weakness and numbness in her lower extremity. Patient has been having difficulty performing activity of daily living. After discussing risks benefits of treatment options, patient elected proceed with surgery. Surgeon: Aaron Rodriguez Senior Graduate Advisor: Yari Recinos Click Yes if Unassisted: No Anesthesia Type: General Operative Notes Closure Type: primary Specimen(s): none sent Applied: catheter Estimated Blood Loss (mL): 150 Blood products transfused: none Procedure in detail: Patient was seen in the preoperative area. Risks and benefits of the surgery was discussed with the patient. Informed consent was obtained from the patient and placed in the chart. Surgical site was marked. Patient was taken to the operative room. General anesthesia was administered. Prophylactic antibiotic was given to the patient less than 30 min before the incision was made. Patient was placed into a prone position on the Skip table. Patient's back was then prepped and draped in the sterile fashion. Time-out was performed at this time. Using patient's previous scar incision was made over the L3-4 L4-5 L5-S1 interval on the right side. Fascia was incised in line with skin incision. Patient's previously placed hardware over the L4-5, L5-S1 level was identified by dissecting down to the level the hardware using a Bovie and a Ng. The locking caps which was removed using Nuvasiv screwdriver. The locking cole was then removed from the tulips of the pedicle screws using a Margret. The pedicle screws were then removed using the screwdriver. The screws were all found to be loose indicating pseudoarthrosis. The Globus and MARS retractors was then placed into the wound and docked onto the L3 lamina using C-arm guidance. Using microsurgical technique and operating microscope a laminectomy facetectomy was performed by removing the L3 lamina and the L3-4 facet. The disc space at L3-4 level was identified next. And a total diskectomy was performed at L3-4 level. The endplates were decorticated using a rasp and shaver. The total diskectomy and decortication was performed at L3-4 level in order to to accomplish a L3-4 fusion. The local bone from the laminectomy and facetectomy was saved for local bone grafting. After the total diskectomy and decortication was completed, Trifecta bone graft material was combined with local bone that was harvested earlier along with DBM bone graft. At this time, a separate skin is incision was made over the iliac crest. A Jamshidi needle was inserted into the iliac crest through a separate skin incision. 5 cc of bone marrow aspiration was obtained through the separate skin incision using a Jamshidi needle from the iliac crest. The bone marrow aspiration was combined with local bone and the Trifecta bone grafting material. The bone grafting material was placed into the L3-4 interbody space along with a expandable cage. The cage was expanded to its maximum height using the torque limiting screwdriver. At this time a mirror image incision was made on the left side. The fascia was incised in line with the skin incision. Patient's previously placed hardware on the right side was then removed in the same fashion as it was on the left side. The hardware was also found to be loose indicating pseudoarthrosis. The fusion mass on the right side was exposed by performing a right-sided hemilaminectomy at L4-5 L5-S1 level. The hemilaminectomy was performed using the Kerrison rongeur to undercut the lamina at L4-5 L5-S1 as well removing additional epidural scar tissue for purpose of decompressing the epidural space. The fusion mass was explored and was found have visible motion indicating pseudoarthrosis. Globus MARS retractor was inserted and docked onto the L3-4 L4-5 L5-S1 posterolateral gutter. Using the power drill, posterior-lateral decortication was performed at L3-4 L4-5 L5-S1 level until bleeding cortical bone was identified. The remaining bone grafting material was placed into the L3-4 L4-5 L5-S1 posterior lateral gutter he order to accomplish posterolateral fusion at the L3-4 L4-5 L5-S1 level. Using the double C-arm technique, pedicle screws were placed into the L3, L4-L5 and S1 pedicles bilaterally. This was done by placing the Jamshidi needle into the pedicles, then placing the guidewires over the Jamshidi needle, and finally placing the cannulated screws over the guidewires bilaterally. After the pedicle screws were placed, 2 titanium rods was locked into the heads of the pedicle screws using locking caps and torque limiting screwdriver. Pedicle screws were increased in diameter by 1 mm at all L4 L5 S1 pedicle screws bilaterally due to the previously lose purchase. All new pedicle screws has good purchase. After all the hardware was placed, and confirmed with AP and lateral C-arm imaging, the wound was then irrigated with sterile normal saline and packed with Ray-Caden gauze for 3 min to accomplish hemostasis. After the gauze was removed the deep fascia was closed with #1 Vicryl suture. The subcutaneous layer was closed with 2-0 Vicryl. The skin was closed with skin sravanthi. Patient tolerated the procedure well. There were no complications. Neuro monitoring was performed throughout the procedure which was stable throughout the procedure. Pedicle screws were tested using the neuro monitoring probe which were all tested above 20 milliamps. Complications: none Post-operative Condition: stable Disposition: PACU Plan for aftercare: Admit to inpatient hospital
[2022-01-03] MEDS: hydrOXYzine 50 MG/ML INJ 25 MG IM (17:04)
[2022-01-03] MEDS: OXYCODONE IR 5 MG TABLET PO ×2 (17:13→17:44)
[2022-01-03] MEDS: ACETAMINOPHEN 325 MG TABLET 975 MG PO (17:13)
[2022-01-03] MEDS: SODIUM CHLORIDE 0.9% 1,000 ML 100 ML IV (18:43)
[2022-01-03] MEDS: RANOLAZINE 500 MG TAB.ER.12H PO (20:20)
[2022-01-03] MEDS: PRAVASTATIN 20 MG TABLET 40 MG PO (20:20)
[2022-01-03] MEDS: SENNOSIDES 8.6 MG TABLET 17.2 MG PO (20:20)
[2022-01-03] MEDS: METOPROLOL ER 25 MG TABLET PO (20:21)
[2022-01-03] MEDS: prednisoLONE OPHTH SUSP 1 DROPS EYE-RIGHT (20:22)
[2022-01-03] MEDS: DOCUSATE 100 MG CAPSULE PO (20:25)
[2022-01-03] MEDS: HYDROCODONE/ACET 5/325 TABLET 1 TAB PO (21:30)
--- NOTE | 2022-01-03 23:45 | PC.NURSE ---
Noted dressing to back to be saturated with blood and pad underneath back with drainage. Dressing reinforced with ABD pads and tape. Notified on-call provider, Dr. Hernandez and received order that if it soaks through again to reinforce again or change dressing.
[2022-01-04] VITALS (10 sets, daily range): BP systolic 105–136; BP diastolic 45–83; PULSE 59–85; RESP 16–20; TEMP 36.2–36.9; O2SAT 93–97
[2022-01-04] MEDS: HYDROCODONE/ACET 5/325 TABLET 1 TAB PO ×2 (03:26→08:46)
[2022-01-04] MEDS: SODIUM CHLORIDE 0.9% 1,000 ML 100 ML IV (03:40)
[2022-01-04 05:12] LABS: Hemoglobin 10.9 g/dL (13.5-17.5)
[2022-01-04] MEDS: CEFAZOLIN 2 GM/20 ML SYRINGE IV (05:23)
--- NOTE | 2022-01-04 07:48 | PM.PNPO.1 ---
Subjective Subjective Date Patient Seen: 01/04/22 Time Patient Seen: 07:48 Interval history: Patient is complaining of moderate low back pain this morning. He has already been up to go to the commode. He has not worked with physical therapy yet. He denies any new numbness or tingling, and feels his right-sided leg pain and numbness is somewhat improved from prior to surgery. He denies any chest pain or shortness of breath. No nausea or vomiting. Exam Vital Signs (past 8 hours): - 01/04/22 00:36 01/04/22 03:38 Temperature 97.1 F L 97.4 F L Pulse Rate 59 L 62 Respiratory Rate 18 18 Blood Pressure 105/56 L 136/83 Pulse Oximetry 96 97 Oxygen Delivery Method Nasal Cannula Oxygen Flow Rate 2 Narrative Exam Narrative: Pleasant 81-year-old male, resting comfortably in bed, no acute distress. Dressing was reinforced last night but is currently clean, dry, intact. Bilateral lower extremity: Motor functions are grossly intact, sensation is grossly intact to light touch, calves are soft and nontender to palpation. Objective Labs Result Diagrams: 01/04/22 04:53 Labs: Laboratory Results - last 24 hr 01/04/22 04:53 Hgb 10.9 L Hct 31.0 L PFSH Medical History Arthritis BCC (basal cell carcinoma) Bilateral shoulder pain CAD (coronary artery disease) Diabetes Enlarged prostate HLD (hyperlipidemia) [place] (hard of hearing) HTN (hypertension) Neck pain Numbness PSVT (paroxysmal supraventricular tachycardia) Surgical History H/O vasectomy History of arthroplasty of right knee History of cardiac catheterization (2020) History of lumbar surgery (10/07/19) History of total right hip arthroplasty Hx of arthroscopy of left knee Hx of arthroscopy of right knee Hx of cystoscopy Hx of hernia repair Hx of left knee surgery (~2004) S/P CABG x 4 (~01/2017) Status post extracapsular cataract extraction of right eye Social History household members: children and none Smoking Status: Never smoker alcohol intake: current Assessment & Plan Post-op Postoperative Procedures: Procedures Operation Date: 01/03/22 11:15 Actual Procedure Side Surgeon p L3-4 TLIF, L4-S1 HWR, L4-5, L5-S1 laminectomy, L3-S1 PSF w. instrumentation Aaron Rodriguez MD Postoperative day: 1 Postoperative status narrative: -stable status post L L4-5, L5-5-S1 hardware removal, L3-S1 fusion Postoperative plan: routine post-op care Postoperative plan narrative: -mobilize with PT. Limit bending, lifting, twisting x6 weeks. Weightbearing as tolerated with front wheel walker -continue with multimodal pain management. -ordered throat lozenges for his scratchy throat -instructed nursing to change dressing after morning session of PT. Please call me if it is actively draining. -DC to home versus SNF in 1-2 days. Patient notes his son will be at home to help him for the 1st few days.
[2022-01-04] MEDS: polyethylene glycoL 3350 17 GM POWD.PACK PO (08:33)
[2022-01-04] MEDS: DOCUSATE 100 MG CAPSULE PO ×2 (08:33→20:35)
[2022-01-04] MEDS: BENZOCAINE/MENTHOL 1 LOZ PKT 1 EACH PO ×2 (08:33→23:42)
[2022-01-04] MEDS: METOPROLOL ER 25 MG TABLET PO ×2 (08:34→20:33)
[2022-01-04] MEDS: RANOLAZINE 500 MG TAB.ER.12H PO ×2 (08:34→20:35)
--- NOTE | 2022-01-04 10:23 | PC.NURSE ---
Day shift - I changed dressing at 1024 per PA request when PT was working w/ Pt. There was significant drainage, but no active bleeding.
--- NOTE | 2022-01-04 10:38 | PT.IIE ---
Current Diagnoses Spinal stenosis, lumbar region without neurogenic claudication (01/03/22) Arthrodesis status (01/03/22) Surgery Performed Operation Date: 01/03/22 11:15 Actual Procedures p L3-4 TLIF, L4-S1 HWR, L4-5, L5-S1 laminectomy, L3-S1 PSF w. instrumentation - Aaron Rodriguez MD Medical History (Last Reviewed 01/04/22 @ 07:49 by Yari Recinos PA-C) Arthritis BCC (basal cell carcinoma) Bilateral shoulder pain CAD (coronary artery disease) Diabetes Enlarged prostate HLD (hyperlipidemia) [place] (hard of hearing) HTN (hypertension) Neck pain Numbness PSVT (paroxysmal supraventricular tachycardia) Physical Therapy Inpatient Evaluation/Re-Eval M1 PT/OT-IP Prior Functional Status Start: 01/04/22 08:24 Freq: NEEDED Status: Active Protocol: Document 01/04/22 10:38 AW (Rec: 01/04/22 12:25 AW [id number]) Medical Review Prior Functional Status Medical History Reviewed Yes Communication Pt is able to make his needs known. [place] is [place] and wears hearing aids which are very helpful. Mobility and Gait Pt uses a 4WW for all mobility . He states he can walk about half a block to a block depending on pain. Activities of Daily Living and IADL's Independent with all ADL and IADL needs. Prior Functional Level (Other details) Pt had L4-S1 TLIF in September 2019 and went to SNF rehab at discharge. Social History Household Members children,none Living Arrangements House Number of Floors (Floors) One Floor Number of Stairs To Enter/Railing? Ramped entry Home Environment High Toilet,Walk in Shower, Ramp Home Equipment Four Wheel Walker,Shower Seat without Backrest,Hand Held Shower,Drafter Electromechanical,Sock Aid,Grab Bars Near Toilet,Grab Bars In Shower Employment Status Retired Additional Social History Comment Additional equipment: Kenroy has a tripod cane. His shower is w/ c accessible. Jacob lives alone in [facility]. His son, Jacob, plans to stay with him at discharge if he goes home. M2 PT-IP Current Condition Start: 01/04/22 08:24 Freq: NEEDED Status: Active Protocol: Document 01/04/22 10:38 AW (Rec: 01/04/22 12:25 AW [id number]) Physical Therapy Current Condition Current Condition Evaluation Date 01/04/22 Treatment Diagnosis s/p L3-S1 TLIF, lami; difficulty in walking Onset Date 01/03/22 M3 PT-IP Subjective Start: 01/04/22 08:24 Freq: NEEDED Status: Active Protocol: Document 01/04/22 10:38 AW (Rec: 01/04/22 12:25 AW [id number]) Subjective Physical Therapy Visit Type Type Initial Evaluation Visit Start Time 10:00 Visit Stop Time 10:38 Total Visit Minutes 38 Physical Therapy Visit Comments Patient Comments Pt is willing to participate with PT Patient Goals Pt states he went to rehab after previous surgery and is open to same if needed. Therapy Pain Assessment Pain When Pain Assessed During Mobility Pain Present Pain Present Pain Reported Location low back Intensity 5 Scale Used Numeric (0 - 10) Pain Management Techniques Modification of Treatment,Re- positioning,Timing of Activity with Medications M4 PT-IP Mobility and Gait Start: 01/04/22 08:24 Freq: NEEDED Status: Active Protocol: Document 01/04/22 10:38 AW (Rec: 01/04/22 12:25 AW [id number]) PT-Bed Mobility Assessment Rolling Type of Rolling Log Rolling,Roll to Right Level of Assist Moderate Assistance,1 Person Assistance Supine to Sit Supine to Sit Moderate Assistance,1 Person Assistance,Bedrails Scooting Scooting to Edge of Bed Minimal Assistance PT-Transfer Assessment Sit to and From Stand Sit to and from Stand Moderate Assistance,1 Person Assistance,Use of Upper Extremities Equipment Transfer Assistive Device Gait Belt,Front Wheeled Walker Orthotic/Prosthetic Devices or Brace: No Transfers Transfer Destination Chair,Bedside Commode Transfer Technique Stand Step Pivot Transfer Ability Level of Assist Moderate Assistance,1 Person Assistance,Use of Upper Extremities Comments Mobility Comments Pt was sitting up in bed as PT arrived. BP 147/76 HR 73. With bed flat, pt log rolled to his right side (as he does at home) mod A and completed SL to sit mod A and cues for back precautions. Pt sat EOB with good trunk control as RN replaced saturated dressing. BP sitting was 134/66 HR 72. Pt stood mod A and used FWW to step pivot transfer to the [facility] mod A. He lacks ~5 degrees knee extension bilaterally and has shorter RLE. Pt tended to walk and step with RLE in plantar flexion to compensate. Pt voided and then stood mod A. He ambulated 12 feet around the bed with FWW min/mod A. He sat on the chair and PT reclined the chair. He was left there with call light, personal phone, and tray table in reach. Pt agreed to call for all mobility needs. Gait Assessment Gait Gait Assistance Required: Minimum Assistance,Moderate Assistance Distance (Feet) 12 Able to Maintain Weight Bearing Status Yes During Gait Assistive Devices Assistive Device Gait Belt,Front Wheeled Walker Orthotic/Prosthetic Devices or Brace: No Gait Deviations General Gait Pattern Antalgic,Decreased Stride Length,Decreased Feet Clearance,Flexed Trunk,Narrow Based Gait Factors Limiting Gait Function Factors Limiting Gait Function Decreased Activity Tolerance, Decreased Strength,Limited Range of Motion,Pain,Poor Balance,Poor Safety Awareness Comments Gait Comments See mobility comments for details. After gait, pt noted he usually wears a lift in his right shoe to compensate for limb length discrepancy. Will follow up and use shoes at next visit if available. Stair Climbing Assessment Comments Stair Climbing Comments Not assessed. PT-Balance Assessment Sitting Balance and Reactions Static Sitting Balance Ability Good Dynamic Sitting Balance Ability Good Standing Balance and Reactions Static Standing Balance Ability Fair Dynamic Standing Balance Ability Poor Device Used FWW M5 PT-IP Objective Assessments Start: 01/04/22 08:24 Freq: NEEDED Status: Active Protocol: Document 01/04/22 10:38 AW (Rec: 01/04/22 12:25 AW [id number]) Orientation Orientation/Cognition Level of Alertness Alert Orientation Name,Day of Week,Place, Situation Language Function Ability Hard of Hearing Safety Awareness Decreased Safety Awareness Memory Description Short Term Impaired Gross Range of Motion Upper Extremity ROM Impairments Pt states bilateral rotator cuff injuries limit his rotation. I switched to suspenders because they're easier. Lower Extremity ROM Assessment Bilaterally Impaired Impairments Pt lacks 5-10 degrees knee extension bilaterally Strength Lower Extremity Strength Assessment Bilaterally Impaired Hip 4-/5 Knee 4/5 Ankle 4/5 Sensation Assessment Sensation Gross Sensation WNL M6 PT-IP Treatment Start: 01/04/22 08:24 Freq: NEEDED Status: Active Protocol: Document 01/04/22 10:38 AW (Rec: 01/04/22 12:25 AW [id number]) Physical Therapy Treatment Education Education Provided Precautions,Post-Op Packet, Safety Other Treatments Other Treatment Performed Educated pt on PT plan of care , post op precautions, recommendation for use of FWW, and recommendation for SNF rehab. M7 PT-IP Assessment and Plan Start: 01/04/22 08:24 Freq: NEEDED Status: Active Protocol: Document 01/04/22 10:38 AW (Rec: 01/04/22 12:25 AW [id number]) PT Summary Assessment and Plan Potential Rehabilitation Potential Good Status of Condition at Evaluation Evolving Summary Impairments Pain,ROM,Strength,Balance, Cognition,Bed Mobility, Transfers,Gait,Activity Tolerance Assessment Summary Jacob is an 81 yo man seen for PT evaluation on POD1 following extensive multi- level lumbar surgery. He is modified independent at baseline with use of 4WW. He reports falls history. He lacks 5-10 degrees knee extension bilaterally. RLE is shorter than left and pt usually wears a lift in his right shoe to compensate. Pt required mod assist for all mobility during this assessment and only tolerated 12 feet of gait with FWW. PT recommends SNF rehab to improve pt's strength and mobility independence before safe return home. Goals Bed Mobility Goal Independent Transfer Goal Standby Assistance,Front Wheeled Walker Gait Goal Standby Assistance,Front Wheel Walker Gait Distance 200 Other Goals -- improve transfers and gait to SBA with 4WW Days to Meet Goals 10 Frequency of Treatment Frequency Of Treatment Twice a Day Treatment Plan Physical Therapy Treatment Plan Bed Mobility Training,Transfer Training,Gait Training, Therapeutic Exercise,Balance Retraining,Post Op Education, Discharge Planning,Hot or Cold Pack,Neuromuscular Re-ed Other Recommendations and Next Treatment follow up on footwear/heel Focus lift for right shoe; review precautions; transfers and gait with FWW; sit to stands to work on hip hinge Precautions Lumbar Precautions Log Roll,No Twisting,Limit Bending,Lifting Restriction of 10 lbs,Gait Belt above Incisional Area Other Precautions falls Recommendations To Nursing Amount of Assist Needed 1 Person Assist,2 Person Assist Discharge Recommendations PT Discharge Recommendations SNF Rehab Equipment Needed for Home Before defer to subacute rehab Discharge Transportation Needs at Discharge Wheelchair/Cabulance
[2022-01-04] MEDS: ACETAMINOPHEN 325 MG TABLET 650 MG PO ×2 (11:11→18:22)
[2022-01-04] MEDS: hydrOXYzine pamoate 25 MG CAPSULE PO ×2 (11:12→15:28)
[2022-01-04] MEDS: OXYCODONE IR 5 MG TABLET 10 MG PO ×3 (12:02→18:21)
--- NOTE | 2022-01-04 12:07 | OT.IP.EVAL ---
Current Diagnoses Spinal stenosis, lumbar region without neurogenic claudication (01/03/22) Arthrodesis status (01/03/22) Surgery Performed Operation Date: 01/03/22 11:15 Actual Procedures p L3-4 TLIF, L4-S1 HWR, L4-5, L5-S1 laminectomy, L3-S1 PSF w. instrumentation - Aaron Rodriguez MD Past Medical History (Last Reviewed 01/04/22 @ 07:49 by Yari Recinos PA-C) Arthritis BCC (basal cell carcinoma) Bilateral shoulder pain CAD (coronary artery disease) Diabetes Enlarged prostate H/O vasectomy History of arthroplasty of right knee History of cardiac catheterization (2020) History of lumbar surgery (10/07/19) History of total right hip arthroplasty HLD (hyperlipidemia) [place] (hard of hearing) HTN (hypertension) Hx of arthroscopy of left knee Hx of arthroscopy of right knee Hx of cystoscopy Hx of hernia repair Hx of left knee surgery (~2004) Neck pain Numbness PSVT (paroxysmal supraventricular tachycardia) S/P CABG x 4 (~01/2017) Status post extracapsular cataract extraction of right eye Surgical History (Last Reviewed 01/04/22 @ 07:49 by Yari Recinos PA-C) H/O vasectomy History of arthroplasty of right knee History of cardiac catheterization (2020) History of lumbar surgery (10/07/19) History of total right hip arthroplasty Hx of arthroscopy of left knee Hx of arthroscopy of right knee Hx of cystoscopy Hx of hernia repair Hx of left knee surgery (~2004) S/P CABG x 4 (~01/2017) Status post extracapsular cataract extraction of right eye Occupational Therapy Inpatient Evaluation/Re-Eval M1 PT/OT-IP Prior Functional Status Start: 01/04/22 08:24 Freq: NEEDED Status: Active Protocol: Document 01/04/22 11:35 [facility] (Rec: 01/04/22 13:14 [facility] [id number]) Medical Review Prior Functional Status Medical History Reviewed Yes Communication Pt is able to make his needs known. He is [place] and wears hearing aids which are very helpful. Mobility and Gait Pt uses a 4WW for all mobility . He states he can walk about half a block to a block depending on pain. Activities of Daily Living and IADL's Independent with all ADL and IADL needs. Prior Functional Level (Other details) Pt had L4-S1 TLIF in September 2019 and went to SNF rehab at discharge. Social History Household Members children,none Living Arrangements House Number of Floors (Floors) One Floor Number of Stairs To Enter/Railing? Ramped entry Home Environment High Toilet,Walk in Shower, Ramp Home Equipment Four Wheel Walker,Shower Seat without Backrest,Hand Held Shower,Nuclear Security Officer,Sock Aid,Grab Bars Near Toilet,Grab Bars In Shower Employment Status Retired Additional Social History Comment Additional equipment: Pt has a tripod cane. His shower is w/ c accessible. Jacob lives alone in [facility]. His son, Jacob, plans to stay with him at discharge if he goes home, but only for a short time M2 OT-IP Current Condition Start: 01/04/22 12:55 Freq: Status: Active Protocol: Document 01/04/22 11:35 [facility] (Rec: 01/04/22 13:14 [facility] [id number]) Occupational Therapy Current Condition Current Condition Evaluation Date 01/04/22 Treatment Diagnosis S/p L3-4 TLIF, L4-S1 HWR, L5- S1 laminectomy, L3-5 PSI Diagnosis Onset Date 01/03/22 Post Operative Precautions Lumbar Precautions Log Roll,No Twisting,Limit Bending,Lifting Restriction of 10 lbs,Gait Belt above Incisional Area M3 OT- IP Subjective and Pain Start: 01/04/22 12:55 Freq: Status: Active Protocol: Document 01/04/22 11:35 [facility] (Rec: 01/04/22 13:14 [facility] [id number]) OT- Subjective Occupational Therapy Visit Type Type Initial Evaluation Visit Start Time 11:35 Visit Stop Time 12:07 Total Visit Minutes 32 Occupational Therapy Visit Comments Patient Comments Pt agreed to get up for OT eval. Patient/Caregiver Goals Pt open to going to skilled rehab if needed. OT Pain Assessment Pain When Pain Assessed During Mobility Pain Present Pain Present Pain Reported Location low back Intensity 9 M4 OT- IP ADL's Start: 01/04/22 12:55 Freq: Status: Active Protocol: Document 01/04/22 11:35 [facility] (Rec: 01/04/22 13:14 [facility] [id number]) OT [id number] Comments OT Self-Feeding Comments NOt at meal time. OT ADL-Grooming General Evaluation Grooming Ability Standby Assistance Areas Needing Assistance Retrieving/Set-up of Grooming Items OT ADL-Oral Care General Eval Oral Care Ability Standby Assistance Areas of Assistance Retrieving/Set-Up of Items Comments Oral Care Comments Initial vc best to spit into a cup/basin when doing oral care needs. Pt not able to tolerate standing at the sink and needing to sit down in order to do his grooming and oral care needs. OT ADL-Dressing General Eval Lower Body Dressing Ability Maximum Assistance Comments OT Dressing Comments At this time pt needing MAXA for all LB dressing needs. OT ADL-Toileting Comments OT Toileting Comments Pt not having to use the toilet at this time. OT ADL-Bathing Comments OT Bathing Comments Not performed as sponge bath would be more appropriate at this time. M5 OT- IP IADL's Start: 01/04/22 12:55 Freq: Status: Active Protocol: Document 01/04/22 11:35 [facility] (Rec: 01/04/22 13:14 [facility] [id number]) OT-Instrumental Activities of Daily Living Home Safety Awareness Awareness of Need for Assistance at Home Good Awareness Home Safety Comments Pt states lives alone and son only able to assist 1 day. M6 OT- IP Functional Cognition Start: 01/04/22 12:55 Freq: Status: Active Protocol: Document 01/04/22 11:35 [facility] (Rec: 01/04/22 13:14 [facility] [id number]) Cognitive Factors Limiting Selfcare Function Cognitive Ability Level of Alertness Alert Patient Orientation Name,Age,Birthday,Month,Date, Year,Day of Week,Place, Situation Attention Span Ability Capable of Focused Attention, Capable of Sustained Attention Ability to Follow Commands Able to Follow One Step Commands Cognitive Comments Cognitive Assessment Comments Pt able to follow directions for his back precautions well. Pt aware that he is not able to tolerate much today and would be best to go to skilled rehab. OT- Vision and Hearing OT- Hearing Assessment OT- Hearing Assessment Use of Hearing Aids OT- Vision Assessment Visual Acuity Glasses All The Time Vision Assessment Comments Pt has bifocals but states does not wear them all the time. M7 OT- IP Mobility and Balance Start: 01/04/22 12:55 Freq: Status: Active Protocol: Document 01/04/22 11:35 [facility] (Rec: 01/04/22 13:14 [facility] [id number]) OT-Transfer Assessment Sit to and From Stand Sit to and from Stand Moderate Assistance,Maximum Assistance Transfers Transfer Ability Moderate Assistance Technique Transfer Destination Bedside Commode,Chair Transfer Technique Stand Step Pivot Devices Transfer Assistive Devices Gait Belt,Front Wheeled Walker Comments Mobility Comments MANDY to stand initially as his legs buckle to the fww and only able to take a few step initially and then having to sit down. Second attempt able to stand with MODA X 1 to FWW and assist for balance to get to the sink and then having to sit down for grooming needs. OT- Balance Assessment Sitting Balance and Reactions Static Sitting Balance Ability Good Dynamic Sitting Balance Ability Fair Standing Balance and Reactions Static Standing Balance Ability Poor Dynamic Standing Balance Ability Poor M8 OT- IP Objective Assessments Start: 01/04/22 12:55 Freq: Status: Active Protocol: Document 01/04/22 11:35 [facility] (Rec: 01/04/22 13:14 [facility] [id number]) OT Gross Range of Motion Upper Extremity Range of Motion Assessment Bilaterally Impaired OT Strength Upper Extremity Strength Assessment Bilaterally Impaired OT- Coordination Assessment Comments Coordination Comments Decreased for FMS OT-Muscle Tone Assessment Muscle Tone WNL Yes M9 OT- IP Assessment and Plan Start: 01/04/22 12:55 Freq: Status: Active Protocol: Document 01/04/22 11:35 [facility] (Rec: 01/04/22 13:14 [facility] [id number]) OT Summary Assessment and Plan Potential Rehabilitation Potential Good Analytic Complexity at Evaluation Low Summary OT Impairments Pain,Range of Motion,Strength, Balance,Functional Mobility, Grooming,Dressing,Toileting, Bathing,Toilet Transfers, Shower Transfers,Activity Tolerance Progress Towards Goals Slow Progress due to Pain,Slow Progress due to Medical Issues,Slow Progress due to Activity Tolerance Assessment Summary Pt low complexity and after extensive back surgery main barriers are pain, decreased activity tolerance, unsteady on his feet, needing a lot of assist to stand at this time. Pt will highly benefit from skilled rehab as per pt went to [facility] after last back surgery and states did quite well there. Goals Grooming Goal Independent Dressing Goal Independent Toileting Goal Independent Bathing Goal Independent Toilet Transfer Goal Independent Shower Transfer Goal Independent Days to Meet Goals 20 Frequency of Treatment Frequency Of Treatment Once a Day Treatment Plan OT Treatment Plan ADL Training,Functional Mobility,Patient/Family Education,Discharge Planning Other Treatment Recommendations and Next Practice LB dressing with LB Treatment Focus dressing equipment Discharge Recommendations OT Discharge Recommendations SNF Rehab Transportation Needs at Discharge Wheelchair/Cabulance
--- NOTE | 2022-01-04 14:33 | CM.IDA ---
Initial DCP Assessment Note Pt is an 81 yo male, resident of [place], now POD#1 from spinal surgery by Dr Rodriguez PCP: Agus Denny Payer: Jason HERNDON Reviewed chart, PT recommending SNF. Patient has been to [facility] in the past, after prior back surgery Met w/patient and his son Jacob White; reviewed DCP. Patient/son feel it would be robles to send referral to [facility] in case patient does not progress to returning home w/HH and family support. [facility] choice list provided, patient/son state [facility] worked well in the past and request referral be sent there Shey [facility] has kindly agreed to send this referral and look up patient's vaccination status Following closely for coordination of DCP; home w/family and likely HH vs SNF ([facility]) if Jason authorizes LUCÍA Guo Discharge Planning/Care Management CM Discharge Assessment Start: 01/04/22 14:28 Freq: Status: Active Protocol: Document 01/04/22 14:29 [facility] (Rec: 01/04/22 14:33 [facility] [id number]) Discharge Planning Assessment Assigned [employer] Technical Operator LUCÍA Garcia DPOA/Assigned Designee Name Jacob Martell Jr, [place] Contact Information [phone] Advance Directives? Yes Advance Directives on File No History Provided By Patient,Family Member,Medical Record Prior Living Arrangements House Household Members none Comment Son and his family live blocks from patient, supportive Type of transporation used prior to Relies on Others admit Independent with ADL's Yes: 4 WW, poor activity tolerance d/t pain Is patient alert and oriented? Yes Needs Assistance With Home Chores / Shopping Patient/Family Preference [facility] Facility Comment Lives alone, PT/OT recommending SNF Discharge Plan [facility] Facility Transportation Arrangement Likely cabulance Referrals Initiated [facility] Additional Comment Referral made to [facility] per pt/ family request, hx of [facility] after prior back surgery Medicare Choice List Provided Yes SNF/HH Preference [facility] Has Agency SNF been contacted Yes
--- NOTE | 2022-01-04 14:55 | CM.DPNOTE ---
Faxed referral packet to [facility] per Dahlia and received fax conf. Shey Hargrove CM Assist.
--- NOTE | 2022-01-04 16:17 | PT.IPTN ---
Current Diagnoses Spinal stenosis, lumbar region without neurogenic claudication (01/03/22) Arthrodesis status (01/03/22) Surgery Performed Operation Date: 01/03/22 11:15 Actual Procedures p L3-4 TLIF, L4-S1 HWR, L4-5, L5-S1 laminectomy, L3-S1 PSF w. instrumentation - Aaron Rodriguez MD Physical Therapy Treatment Note M2 PT-IP Current Condition Start: 01/04/22 08:24 Freq: NEEDED Status: Active Protocol: Document 01/04/22 10:38 AW (Rec: 01/04/22 12:25 AW [id number]) Physical Therapy Current Condition Current Condition Evaluation Date 01/04/22 Treatment Diagnosis s/p L3-S1 TLIF, lami; difficulty in walking Onset Date 01/03/22 M3 PT-IP Subjective Start: 01/04/22 08:24 Freq: NEEDED Status: Active Protocol: Document 01/04/22 16:17 AW (Rec: 01/04/22 16:26 AW [id number]) Subjective Physical Therapy Visit Type Type Treatment Note Visit Start Time 15:58 Visit Stop Time 16:17 Total Visit Minutes 19 Notes Attempted to work with pt at 1530 but he had just returned to bed and was getting pain medication. Pt agreed to do PT at 1600. Physical Therapy Visit Comments Patient Comments I think that medication helped. I can get up now. Therapy Pain Assessment Pain When Pain Assessed During Mobility Pain Present Pain Present Pain Reported Location low back Scale Used not quantified M4 PT-IP Mobility and Gait Start: 01/04/22 08:24 Freq: NEEDED Status: Active Protocol: Document 01/04/22 16:17 AW (Rec: 01/04/22 16:26 AW [id number]) PT-Bed Mobility Assessment Rolling Type of Rolling Log Rolling,Roll to Right Level of Assist Moderate Assistance,1 Person Assistance Supine to Sit Supine to Sit Moderate Assistance,1 Person Assistance,Bedrails Sit to Supine Sit to Supine Moderate Assistance,1 Person Assistance,Bedrails PT-Transfer Assessment Sit to and From Stand Sit to and from Stand Moderate Assistance,1 Person Assistance,Use of Upper Extremities Equipment Transfer Assistive Device Gait Belt,Front Wheeled Walker Orthotic/Prosthetic Devices or Brace: No Transfers Transfer Destination Bed Transfer Technique Stand Step Pivot Transfer Ability Level of Assist Moderate Assistance Comments Mobility Comments Pt was lying in bed as PT returned at agreed-upon time. He rolled to his right side and completed SL to sit mod A. PT assisted pt to don his shoes with built-up R footbed. He stood mod A and walked around the bed and back with FWW min/mod A. He sat and returned to supine mod A after scooting laterally toward HOB . Pt was left with bed alarm on for safety and call light in hand. Gait Assessment Gait Gait Assistance Required: Minimum Assistance,Moderate Assistance Distance (Feet) 30 Able to Maintain Weight Bearing Status Yes During Gait Assistive Devices Assistive Device Gait Belt,Front Wheeled Walker Orthotic/Prosthetic Devices or Brace: Yes Gait Deviations General Gait Pattern Antalgic,Decreased Stride Length,Decreased Feet Clearance,Flexed Trunk,Narrow Based Gait Factors Limiting Gait Function Factors Limiting Gait Function Decreased Activity Tolerance, Decreased Strength,Limited Range of Motion,Pain,Poor Balance,Poor Safety Awareness Comments Gait Comments Pt has shoes with built-up footbed for shorter RLE. With shoes, he continues to walk with excessive B knee flexion but can get foot flat bilaterally. Stair Climbing Assessment Comments Stair Climbing Comments Not assessed. PT-Balance Assessment Sitting Balance and Reactions Static Sitting Balance Ability Good Dynamic Sitting Balance Ability Fair Standing Balance and Reactions Static Standing Balance Ability Fair Dynamic Standing Balance Ability Poor Device Used FWW M5 PT-IP Objective Assessments Start: 01/04/22 08:24 Freq: NEEDED Status: Active Protocol: Document 01/04/22 10:38 AW (Rec: 01/04/22 12:25 AW [id number]) Orientation Orientation/Cognition Level of Alertness Alert Orientation Name,Day of Week,Place, Situation Language Function Ability Hard of Hearing Safety Awareness Decreased Safety Awareness Memory Description Short Term Impaired Gross Range of Motion Upper Extremity ROM Impairments Pt states bilateral rotator cuff injuries limit his rotation. I switched to suspenders because they're easier. Lower Extremity ROM Assessment Bilaterally Impaired Impairments Pt lacks 5-10 degrees knee extension bilaterally Strength Lower Extremity Strength Assessment Bilaterally Impaired Hip 4-/5 Knee 4/5 Ankle 4/5 Sensation Assessment Sensation Gross Sensation WNL M6 PT-IP Treatment Start: 01/04/22 08:24 Freq: NEEDED Status: Active Protocol: Document 01/04/22 16:17 AW (Rec: 01/04/22 16:26 AW [id number]) Physical Therapy Treatment Education Education Provided Precautions,Safety M7 PT-IP Assessment and Plan Start: 01/04/22 08:24 Freq: NEEDED Status: Active Protocol: Document 01/04/22 16:17 AW (Rec: 01/04/22 16:26 AW [id number]) PT Summary Assessment and Plan Summary Impairments Pain,ROM,Strength,Balance, Cognition,Bed Mobility, Transfers,Gait,Activity Tolerance Assessment Summary Don walked with slightly improved steadiness in his own shoes which provide compensation for shorter RLE. He walked 30 feet with FWW min /mod A this PM but continues to be limited by pain and does not tolerate much activity. PT recommends SNF rehab to improve pt's strength and mobility independence before safe return home. Goals Bed Mobility Goal Independent Transfer Goal Standby Assistance,Front Wheeled Walker Gait Goal Standby Assistance,Front Wheel Walker Gait Distance 200 Other Goals -- improve transfers and gait to SBA with 4WW Days to Meet Goals 10 Frequency of Treatment Frequency Of Treatment Twice a Day Treatment Plan Physical Therapy Treatment Plan Bed Mobility Training,Transfer Training,Gait Training, Therapeutic Exercise,Balance Retraining,Post Op Education, Discharge Planning,Hot or Cold Pack,Neuromuscular Re-ed Other Recommendations and Next Treatment don pt's own shoes; transfers Focus and gait with FWW; sit to stands to work on hip hinge Precautions Lumbar Precautions Log Roll,No Twisting,Limit Bending,Lifting Restriction of 10 lbs,Gait Belt above Incisional Area Other Precautions falls Recommendations To Nursing Amount of Assist Needed 1 Person Assist Discharge Recommendations PT Discharge Recommendations SNF Rehab Equipment Needed for Home Before defer to subacute rehab Discharge Transportation Needs at Discharge Wheelchair/Cabulance
[2022-01-04] MEDS: MAGNESIUM HYDROXIDE 30 ML UDC PO (17:56)
[2022-01-04] MEDS: PRAVASTATIN 20 MG TABLET 40 MG PO (20:35)
[2022-01-04] MEDS: SENNOSIDES 8.6 MG TABLET 17.2 MG PO (20:35)
[2022-01-04] MEDS: prednisoLONE OPHTH SUSP 1 DROPS EYE-RIGHT (20:36)
[2022-01-04] MEDS: ALFUZOSIN 10 MG 10 EACH PO (21:34)
[2022-01-05] VITALS (7 sets, daily range): BP systolic 106–143; BP diastolic 44–71; PULSE 65–81; RESP 14–17; TEMP 36.4–37.3; O2SAT 91–98
[2022-01-05] MEDS: ACETAMINOPHEN 325 MG TABLET 650 MG PO ×4 (01:41→22:13)
[2022-01-05] MEDS: OXYCODONE IR 5 MG TABLET 10 MG PO ×5 (01:41→19:15)
--- NOTE | 2022-01-05 07:43 | PM.PNPO.1 ---
Subjective Subjective Date Patient Seen: 01/05/22 Time Patient Seen: 07:43 Interval history: Patient's pain is been mild to severe depending on his activity level. Denies fever or chills. No nausea vomiting. Patient's son will be his caregiver however will be available sparingly. Exam Vital Signs (past 8 hours): - 01/05/22 04:58 Temperature 97.6 F Pulse Rate 75 Respiratory Rate 14 Blood Pressure 106/44 L Pulse Oximetry 91 Oxygen Delivery Method Nasal Cannula Oxygen Flow Rate 0 Narrative Exam Narrative: 81-year-old male resting comfortably in bed in no apparent distress. Dressing Clean, dry, intact.. Motor functions intact bilateral lower extremities. Sensation is grossly intact to light touch bilateral lower extremities. Const General: cooperative Orientation: alert Resp Effort & Inspection: normal respiratory effort and able to speak in complete sentences Objective Labs Result Diagrams: 01/04/22 04:53 PFSH Medical History Arthritis BCC (basal cell carcinoma) Bilateral shoulder pain CAD (coronary artery disease) Diabetes Enlarged prostate HLD (hyperlipidemia) DIOMEDE (hard of hearing) HTN (hypertension) Neck pain Numbness PSVT (paroxysmal supraventricular tachycardia) Surgical History H/O vasectomy History of arthroplasty of right knee History of cardiac catheterization (2020) History of lumbar surgery (10/07/19) History of total right hip arthroplasty Hx of arthroscopy of left knee Hx of arthroscopy of right knee Hx of cystoscopy Hx of hernia repair Hx of left knee surgery (~2004) S/P CABG x 4 (~01/2017) Status post extracapsular cataract extraction of right eye Social History household members: none Smoking Status: Never smoker alcohol intake: current Assessment & Plan Post-op Postoperative Procedures: Procedures Operation Date: 01/03/22 11:15 Actual Procedure Side Surgeon p L3-4 TLIF, L4-S1 HWR, L4-5, L5-S1 laminectomy, L3-S1 PSF w. instrumentation Aaron Rodriguez MD Postoperative day: 2 Postoperative status: marginal pain control Postoperative status narrative: Status post L3-L4, L4-L5, L5-S1 fusion Postoperative plan: routine post-op care Postoperative plan narrative: Mobilize with physical therapy Physical therapy currently recommending intermediate facility placement Disposition to intermediate facility tomorrow
[2022-01-05] MEDS: HYDROMORPHONE 0.5 MG INJ IV (08:51)
[2022-01-05] MEDS: DOCUSATE 100 MG CAPSULE PO ×2 (08:51→21:17)
[2022-01-05] MEDS: RANOLAZINE 500 MG TAB.ER.12H PO ×2 (08:52→21:18)
[2022-01-05] MEDS: polyethylene glycoL 3350 17 GM POWD.PACK PO (08:52)
[2022-01-05] MEDS: MAGNESIUM HYDROXIDE 30 ML UDC PO (08:52)
[2022-01-05] MEDS: METOPROLOL ER 25 MG TABLET PO ×2 (09:06→21:17)
--- NOTE | 2022-01-05 11:02 | PC.NURSE ---
Day shift - I applied dressing change per order w/coversite dressing, and sravanthi were inplace dressing had light shadow drainage.
--- NOTE | 2022-01-05 12:06 | PT.IPTN ---
Current Diagnoses Spinal stenosis, lumbar region without neurogenic claudication (01/05/22) Arthrodesis status (01/05/22) Surgery Performed Operation Date: 01/03/22 11:15 Actual Procedures p L3-4 TLIF, L4-S1 HWR, L4-5, L5-S1 laminectomy, L3-S1 PSF w. instrumentation - Aaron Rodriguez MD Physical Therapy Treatment Note M2 PT-IP Current Condition Start: 01/04/22 08:24 Freq: NEEDED Status: Active Protocol: Document 01/04/22 10:38 AW (Rec: 01/04/22 12:25 AW [id number]) Physical Therapy Current Condition Current Condition Evaluation Date 01/04/22 Treatment Diagnosis s/p L3-S1 TLIF, lami; difficulty in walking Onset Date 01/03/22 M3 PT-IP Subjective Start: 01/04/22 08:24 Freq: NEEDED Status: Active Protocol: Document 01/05/22 11:46 [place] (Rec: 01/05/22 13:04 KS [id number]) Subjective Physical Therapy Visit Type Type Treatment Note Visit Start Time 11:46 Visit Stop Time 12:06 Total Visit Minutes 20 Notes Co-treat w/ OT. Physical Therapy Visit Comments Patient Comments Pt reports feeling dopey and a little lightheaded following pain meds - BP stable. Therapy Pain Assessment Pain When Pain Assessed During Mobility Pain Present Pain Present Pain Reported Location low back Intensity 8 Scale Used Numeric (0 - 10) Description Sharp,Spasm,Tender Pain Management Techniques Apply Cold,Re-positioning, Timing of Activity with Medications M4 PT-IP Mobility and Gait Start: 01/04/22 08:24 Freq: NEEDED Status: Active Protocol: Document 01/05/22 11:46 [place] (Rec: 01/05/22 13:04 KS [id number]) PT-Transfer Assessment Sit to and From Stand Sit to and from Stand Moderate Assistance,1 Person Assistance,Use of Upper Extremities Equipment Transfer Assistive Device Gait Belt,Front Wheeled Walker Orthotic/Prosthetic Devices or Brace: No Transfers Transfer Destination Chair Transfer Technique Pt ambulated w/ FWW Transfer Ability Level of Assist Moderate Assistance Comments Mobility Comments Pt in chair upon arrival and feeling slightly lightheaded but BP stable. Able to scoot to EOC SBA and sit<>Stand w/ FWW Mod A and then ambulated ~ 12 ft w/ FWW Min A x1-2. Pt then returned to chair w/ Min A and cues for slow descent and used yoga coordinator to sonny briefs and sit<>stand again Mod A w/ FWW to pull up briefs . Pt not wanting to ambulate further due to pain, but was able to complete ankle pumps, SLR, and glute sets. Pt left in chair w/ all needs in reach . Gait Assessment Gait Gait Assistance Required: Minimum Assistance,Moderate Assistance Distance (Feet) 12 Able to Maintain Weight Bearing Status Yes During Gait Assistive Devices Assistive Device Gait Belt,Front Wheeled Walker Orthotic/Prosthetic Devices or Brace: Yes Gait Deviations General Gait Pattern Antalgic,Decreased Stride Length,Decreased Feet Clearance,Flexed Trunk,Narrow Based Gait Factors Limiting Gait Function Factors Limiting Gait Function Decreased Activity Tolerance, Decreased Strength,Limited Range of Motion,Pain,Poor Balance,Poor Safety Awareness Comments Gait Comments Pt w/ increased knee flexion on LLE due to leg length discrepency. tends to lean to L more when becoming fatigued. Stair Climbing Assessment Comments Stair Climbing Comments Not assessed. PT-Balance Assessment Sitting Balance and Reactions Static Sitting Balance Ability Good Dynamic Sitting Balance Ability Fair Standing Balance and Reactions Static Standing Balance Ability Fair Dynamic Standing Balance Ability Poor Device Used FWW M5 PT-IP Objective Assessments Start: 01/04/22 08:24 Freq: NEEDED Status: Active Protocol: Document 01/04/22 10:38 AW (Rec: 01/04/22 12:25 AW [id number]) Orientation Orientation/Cognition Level of Alertness Alert Orientation Name,Day of Week,Place, Situation Language Function Ability Hard of Hearing Safety Awareness Decreased Safety Awareness Memory Description Short Term Impaired Gross Range of Motion Upper Extremity ROM Impairments Pt states bilateral rotator cuff injuries limit his rotation. I switched to suspenders because they're easier. Lower Extremity ROM Assessment Bilaterally Impaired Impairments Pt lacks 5-10 degrees knee extension bilaterally Strength Lower Extremity Strength Assessment Bilaterally Impaired Hip 4-/5 Knee 4/5 Ankle 4/5 Sensation Assessment Sensation Gross Sensation WNL M6 PT-IP Treatment Start: 01/04/22 08:24 Freq: NEEDED Status: Active Protocol: Document 01/05/22 11:46 KS (Rec: 01/05/22 13:04 KS [id number]) Physical Therapy Treatment Exercises Exercises Ankle Pumps,Gluteal Sets, Straight Leg Raises Education Education Provided Precautions,Safety M7 PT-IP Assessment and Plan Start: 01/04/22 08:24 Freq: NEEDED Status: Active Protocol: Document 01/05/22 11:46 KS (Rec: 01/05/22 13:04 KS [id number]) PT Summary Assessment and Plan Potential Rehabilitation Potential Good Status of Condition at Evaluation Evolving Summary Impairments Pain,ROM,Strength,Balance, Cognition,Bed Mobility, Transfers,Gait,Activity Tolerance Assessment Summary Pt limited by pain and weakness, mostly requiring Mod A today for transfers and Min /Mod for ambulation w/ FWW. Pt w/ bilateral knee flexion, L> R due to leg length discrepency but able to ambulate ~12 ft w/ FWW w/ lateral lean to L. He has low tolerance for activity and will require SNF to improve strength and functional mobility. Goals Bed Mobility Goal Independent Transfer Goal Standby Assistance,Front Wheeled Walker Gait Goal Standby Assistance,Front Wheel Walker Gait Distance 200 Other Goals -- improve transfers and gait to SBA with 4WW Days to Meet Goals 10 Frequency of Treatment Frequency Of Treatment Twice a Day Treatment Plan Physical Therapy Treatment Plan Bed Mobility Training,Transfer Training,Gait Training, Therapeutic Exercise,Balance Retraining,Post Op Education, Discharge Planning,Hot or Cold Pack,Neuromuscular Re-ed Other Recommendations and Next Treatment don pt's own shoes; transfers Focus and gait with FWW; sit to stands to work on hip hinge Precautions Lumbar Precautions Log Roll,No Twisting,Limit Bending,Lifting Restriction of 10 lbs,Gait Belt above Incisional Area Other Precautions falls Recommendations To Nursing Amount of Assist Needed 1 Person Assist Discharge Recommendations PT Discharge Recommendations SNF Rehab Equipment Needed for Home Before defer to subacute rehab Discharge Transportation Needs at Discharge Wheelchair/Cabulance
--- NOTE | 2022-01-05 13:30 | OT.IP.TRT ---
Current Diagnoses Spinal stenosis, lumbar region without neurogenic claudication (01/05/22) Arthrodesis status (01/05/22) Surgery Performed Operation Date: 01/03/22 11:15 Actual Procedures p L3-4 TLIF, L4-S1 HWR, L4-5, L5-S1 laminectomy, L3-S1 PSF w. instrumentation - Aaron Rodriguez MD Occupational Therapy Treatment Note M2 OT-IP Current Condition Start: 01/04/22 12:55 Freq: Status: Active Protocol: Document 01/04/22 11:35 [facility] (Rec: 01/04/22 13:14 [facility] [id number]) Occupational Therapy Current Condition Current Condition Evaluation Date 01/04/22 Treatment Diagnosis S/p L3-4 TLIF, L4-S1 HWR, L5- S1 laminectomy, L3-5 PSI Diagnosis Onset Date 01/03/22 Post Operative Precautions Lumbar Precautions Log Roll,No Twisting,Limit Bending,Lifting Restriction of 10 lbs,Gait Belt above Incisional Area M3 OT- IP Subjective and Pain Start: 01/04/22 12:55 Freq: Status: Active Protocol: Document 01/05/22 11:46 [facility] (Rec: 01/05/22 13:29 [facility] [id number]) OT- Subjective Occupational Therapy Visit Type Type Treatment Note Visit Start Time 11:46 Visit Stop Time 11:58 Total Visit Minutes 12 Occupational Therapy Visit Comments Patient Comments Pt very groggy from pain medications and therefore pt was seen with SOIL TECHNICIAN for part of the session. Patient/Caregiver Goals TO go [facility]. OT Pain Assessment Pain When Pain Assessed During Mobility Pain Present Pain Present Pain Reported Location low back Intensity 8 Scale Used Numeric (0 - 10) M4 OT- IP ADL's Start: 01/04/22 12:55 Freq: Status: Active Protocol: Document 01/05/22 11:46 [facility] (Rec: 01/05/22 13:29 [facility] [id number]) OT [id number] Comments OT Self-Feeding Comments NOt at meal time. OT ADL-Grooming General Evaluation Grooming Ability Standby Assistance Areas Needing Assistance Retrieving/Set-up of Grooming Items Comments OT Grooming Comments Pt performed while seated. OT ADL-Oral Care General Eval Oral Care Ability Standby Assistance Areas of Assistance Retrieving/Set-Up of Items OT ADL-Dressing General Eval Lower Body Dressing Ability Moderate Assistance Comments OT Dressing Comments Pt able to sonny brief over his feet with increased time and use of soil expert and needing FREDY for completeness to pull up over his hips and FREDY for balance while standing. OT ADL-Toileting Comments OT Toileting Comments Pt not having to use the toilet at this time. OT ADL-Bathing Comments OT Bathing Comments Pt too groggy to shower at this time. M5 OT- IP IADL's Start: 01/04/22 12:55 Freq: Status: Active Protocol: Document 01/04/22 11:35 [facility] (Rec: 01/04/22 13:14 [facility] [id number]) OT-Instrumental Activities of Daily Living Home Safety Awareness Awareness of Need for Assistance at Home Good Awareness Home Safety Comments Pt states lives alone and son only able to assist 1 day. M6 OT- IP Functional Cognition Start: 01/04/22 12:55 Freq: Status: Active Protocol: Document 01/05/22 11:46 [facility] (Rec: 01/05/22 13:29 [facility] [id number]) Cognitive Factors Limiting Selfcare Function Cognitive Ability Level of Alertness Alert,Drowsy Attention Span Ability Capable of Focused Attention, Capable of Sustained Attention Ability to Follow Commands Able to Follow One Step Commands Safety Awareness Decreased Recall of Precautions Cognitive Comments Cognitive Assessment Comments Pt initially not able to recall his precautions and then the end of the session able to follow. M7 OT- IP Mobility and Balance Start: 01/04/22 12:55 Freq: Status: Active Protocol: Document 01/05/22 11:46 [facility] (Rec: 01/05/22 13:29 [facility] [id number]) OT-Transfer Assessment Comments Mobility Comments Pt needing MODA with up on his feet to walk with the FWW and tends to lean to the left, OT have as pt leaning heavily to the left had to assist pt MODA x1 and help guide the FWW in addition to SOIL TECHNICIAN assist. Pt does not tolerate much activity at this time when on his feet. OT- Balance Assessment Sitting Balance and Reactions Static Sitting Balance Ability Good Dynamic Sitting Balance Ability Fair Standing Balance and Reactions Static Standing Balance Ability Poor Dynamic Standing Balance Ability Poor M8 OT- IP Objective Assessments Start: 01/04/22 12:55 Freq: Status: Active Protocol: Document 01/04/22 11:35 [facility] (Rec: 01/04/22 13:14 [facility] [id number]) OT Gross Range of Motion Upper Extremity Range of Motion Assessment Bilaterally Impaired OT Strength Upper Extremity Strength Assessment Bilaterally Impaired OT- Coordination Assessment Comments Coordination Comments Decreased for FMS OT-Muscle Tone Assessment Muscle Tone WNL Yes M9 OT- IP Assessment and Plan Start: 01/04/22 12:55 Freq: Status: Active Protocol: Document 01/05/22 11:46 [facility] (Rec: 01/05/22 13:29 [facility] [id number]) OT Summary Assessment and Plan Potential Rehabilitation Potential Good Analytic Complexity at Evaluation Low Summary OT Impairments Pain,Range of Motion,Strength, Balance,Functional Mobility, Grooming,Dressing,Toileting, Bathing,Toilet Transfers, Shower Transfers,Activity Tolerance Progress Towards Goals Progressing Toward Goals Assessment Summary Pt still needing at least MODA for mobility needs and ADL needs and would greatly benefit from skilled rehab prior to going home. Pt is very motivated to get better. Goals Grooming Goal Independent Dressing Goal Independent Toileting Goal Independent Bathing Goal Independent Toilet Transfer Goal Independent Shower Transfer Goal Independent Days to Meet Goals 19 Frequency of Treatment Frequency Of Treatment Once a Day Treatment Plan OT Treatment Plan ADL Training,Functional Mobility,Patient/Family Education,Discharge Planning Other Treatment Recommendations and Next shower Treatment Focus Discharge Recommendations OT Discharge Recommendations SNF Rehab Transportation Needs at Discharge Wheelchair/Cabulance
--- NOTE | 2022-01-05 14:12 | PT.IPTN ---
Current Diagnoses Spinal stenosis, lumbar region without neurogenic claudication (01/05/22) Arthrodesis status (01/05/22) Surgery Performed Operation Date: 01/03/22 11:15 Actual Procedures p L3-4 TLIF, L4-S1 HWR, L4-5, L5-S1 laminectomy, L3-S1 PSF w. instrumentation - Aaron Rodriguez MD Physical Therapy Treatment Note M2 PT-IP Current Condition Start: 01/04/22 08:24 Freq: NEEDED Status: Active Protocol: Document 01/04/22 10:38 AW (Rec: 01/04/22 12:25 AW [id number]) Physical Therapy Current Condition Current Condition Evaluation Date 01/04/22 Treatment Diagnosis s/p L3-S1 TLIF, lami; difficulty in walking Onset Date 01/03/22 M3 PT-IP Subjective Start: 01/04/22 08:24 Freq: NEEDED Status: Active Protocol: Document 01/05/22 13:53 KS (Rec: 01/05/22 14:41 KS [id number]) Subjective Physical Therapy Visit Type Type Treatment Note Visit Start Time 13:53 Visit Stop Time 14:12 Total Visit Minutes 19 Number of TABLE RUNNER Visits 2 Physical Therapy Visit Comments Patient Comments Pt reporting 10/10 pain w/ mobility but agreeable to get back into bed. Therapy Pain Assessment Pain When Pain Assessed During Mobility Pain Present Pain Present Pain Reported Location low back Intensity 10 Scale Used 6/10 at rest Description Sharp,Spasm,Tender Pain Management Techniques Distraction,Modification of Treatment,Re-positioning M4 PT-IP Mobility and Gait Start: 01/04/22 08:24 Freq: NEEDED Status: Active Protocol: Document 01/05/22 13:53 KS (Rec: 01/05/22 14:41 KS [id number]) PT-Bed Mobility Assessment Rolling Type of Rolling Log Rolling Level of Assist Moderate Assistance Sit to Supine Sit to Supine Moderate Assistance,1 Person Assistance,Bedrails PT-Transfer Assessment Sit to and From Stand Sit to and from Stand Moderate Assistance,1 Person Assistance,Use of Upper Extremities Equipment Transfer Assistive Device Gait Belt,Front Wheeled Walker Orthotic/Prosthetic Devices or Brace: No Transfers Transfer Destination Bed Transfer Technique Pt ambulated w/ FWW Transfer Ability Level of Assist Moderate Assistance Comments Mobility Comments Pt in chair upon arrival and agreeable to ambulate and get back into bed. Pt able to scoot EOC SBA but c/o increased pain w/ mobilty and required extra time to perform . Pt sit<>Stand w/ FWW Mod A and cues for hand placement. Pt then ambulated ~20 ft from chair to other side of bed Min A w/ difficulty advancing LLE at time and biateral knee flexion L>R. Pt ambulated slowly and c/o 10/10 pain. Mod A for sit<>Sidelying, logroll , and repositioning in bed. Encouraged pt to perform ankle pumps and glute sets. Pt left in bed w/ all needs in reach and SCDs and alarm on. Gait Assessment Gait Gait Assistance Required: Minimum Assistance,1 Person Assist Distance (Feet) 20 Able to Maintain Weight Bearing Status Yes During Gait Assistive Devices Assistive Device Gait Belt,Front Wheeled Walker Orthotic/Prosthetic Devices or Brace: Yes Gait Deviations General Gait Pattern Antalgic,Decreased Stride Length,Decreased Feet Clearance,Flexed Trunk,Narrow Based Gait Factors Limiting Gait Function Factors Limiting Gait Function Decreased Activity Tolerance, Decreased Strength,Limited Range of Motion,Pain,Poor Balance,Poor Safety Awareness Comments Gait Comments Pt w/ increased knee flexion on LLE due to leg length discrepency. tends to lean to L more when becoming fatigued. Stair Climbing Assessment Comments Stair Climbing Comments Not assessed. PT-Balance Assessment Sitting Balance and Reactions Static Sitting Balance Ability Good Dynamic Sitting Balance Ability Fair Standing Balance and Reactions Static Standing Balance Ability Fair Dynamic Standing Balance Ability Poor Device Used FWW M5 PT-IP Objective Assessments Start: 01/04/22 08:24 Freq: NEEDED Status: Active Protocol: Document 01/04/22 10:38 AW (Rec: 01/04/22 12:25 AW [id number]) Orientation Orientation/Cognition Level of Alertness Alert Orientation Name,Day of Week,Place, Situation Language Function Ability Hard of Hearing Safety Awareness Decreased Safety Awareness Memory Description Short Term Impaired Gross Range of Motion Upper Extremity ROM Impairments Pt states bilateral rotator cuff injuries limit his rotation. I switched to suspenders because they're easier. Lower Extremity ROM Assessment Bilaterally Impaired Impairments Pt lacks 5-10 degrees knee extension bilaterally Strength Lower Extremity Strength Assessment Bilaterally Impaired Hip 4-/5 Knee 4/5 Ankle 4/5 Sensation Assessment Sensation Gross Sensation WNL M6 PT-IP Treatment Start: 01/04/22 08:24 Freq: NEEDED Status: Active Protocol: Document 01/05/22 13:53 KS (Rec: 04/14/22 14:41 KS [id number]) Physical Therapy Treatment Exercises Exercises Ankle Pumps,Gluteal Sets Education Education Provided Precautions,Safety M7 PT-IP Assessment and Plan Start: 01/04/22 08:24 Freq: NEEDED Status: Active Protocol: Document 01/05/22 13:53 KS (Rec: 01/05/22 14:41 KS [id number]) PT Summary Assessment and Plan Potential Rehabilitation Potential Good Status of Condition at Evaluation Evolving Summary Impairments Pain,ROM,Strength,Balance, Cognition,Bed Mobility, Transfers,Gait,Activity Tolerance Assessment Summary Pt continues to be limited by pain and low tolerance for activity. Able to increase ambulation distance to ~20 ft this PM w/ FWW and Min A. Needed cues for lifting LLE to advance more easily. Required Mod A for transfers and bed mobility. He will require SNF to improve strength and activity tolerance. Goals Bed Mobility Goal Independent Transfer Goal Standby Assistance,Front Wheeled Walker Gait Goal Standby Assistance,Front Wheel Walker Gait Distance 200 Other Goals -- improve transfers and gait to SBA with 4WW Days to Meet Goals 10 Treatment Plan Physical Therapy Treatment Plan Bed Mobility Training,Transfer Training,Gait Training, Therapeutic Exercise,Balance Retraining,Post Op Education, Discharge Planning,Hot or Cold Pack,Neuromuscular Re-ed Other Recommendations and Next Treatment don pt's own shoes; transfers Focus and gait with FWW; sit to stands to work on hip hinge Precautions Lumbar Precautions Log Roll,No Twisting,Limit Bending,Lifting Restriction of 10 lbs,Gait Belt above Incisional Area Other Precautions falls Recommendations To Nursing Amount of Assist Needed 1 Person Assist Discharge Recommendations PT Discharge Recommendations SNF Rehab Equipment Needed for Home Before defer to subacute rehab Discharge Transportation Needs at Discharge Wheelchair/Cabulance
[2022-01-05] MEDS: hydrOXYzine pamoate 25 MG CAPSULE PO (19:16)
[2022-01-05] MEDS: PRAVASTATIN 20 MG TABLET 40 MG PO (21:16)
[2022-01-05] MEDS: prednisoLONE OPHTH SUSP 1 DROPS EYE-RIGHT (21:18)
[2022-01-05] MEDS: SENNOSIDES 8.6 MG TABLET 17.2 MG PO (21:19)
[2022-01-06] VITALS (8 sets, daily range): BP systolic 114–148; BP diastolic 45–78; PULSE 74–90; RESP 14–18; TEMP 36.3–37.2; O2SAT 94–99
[2022-01-06] MEDS: ACETAMINOPHEN 325 MG TABLET 650 MG PO ×2 (05:10→11:48)
[2022-01-06] MEDS: OXYCODONE IR 5 MG TABLET 10 MG PO ×5 (05:10→21:00)
[2022-01-06] MEDS: METOPROLOL ER 25 MG TABLET PO ×2 (08:58→20:44)
[2022-01-06] MEDS: RANOLAZINE 500 MG TAB.ER.12H PO ×2 (08:58→20:44)
[2022-01-06] MEDS: DOCUSATE 100 MG CAPSULE PO ×2 (08:58→20:44)
[2022-01-06] MEDS: polyethylene glycoL 3350 17 GM POWD.PACK PO (08:59)
--- NOTE | 2022-01-06 09:10 | P.DS_ITS ---
History of Present Illness History of Present Illness Date Patient Seen: 01/06/22 Time Patient Seen: 09:11 Chief complaint: Back pain Narrative: Pain is been moderate. Denies fever or chills. No nausea or vomiting. Discharge Providers Provider Date of admission: 01/05/22 09:09 Discharge Date: 01/06/22 Primary care physician: Agus Denny MD Consults: 01/03/22 17:46 Consult to Occupational Therapy Evaluate & Treat Comment: Physician Instructions: Evaluate and treat Consult to Physical Therapy Evaluate & Treat Comment: Physician Instructions: Evaluate and Treat Discharge provider: Ronaldo Thomas PA-C Summary Hospital Course Discharge Diagnosis: 1. L3-4, L4-5, L5-S1 spinal stenosis 2. L3-4, L5-S1 spondylolisthesis 3. Hx of L4-5, L5-S1 fusion with pseudarthrosis and harware loosening Hospital Course: 1. L3-4 posterolateral and posterior interbody fusion 2. L3-4 posterior interbody cage placement 3. L4-5, L5-S1 posterior non-segmental instrumentation removal 4. L4-5, L5-S1 revision laminectomy with exploration of fusion 5. L3-4, L4-5, L5-S1 posterior segmental instrumentation with pedicle screw placement 6. L4-5, L5-S1 posterolatearl fusion 7. [place] of bone marrow from iliac crest through a separate incision 8. Utilization of microsurgical technique and operating microscope Same procedure as scheduled: Yes Indications: Patient has been having chronic back pain and worsening lumbar radiculopathy. Patient failed multiple conservative management with worsening pain weakness and numbness in her lower extremity.? Patient has been having difficulty performing activity of daily living.? After discussing risks benefits of treatment options, patient elected proceed with surgery. Surgeon: Aaron Rodriguez Tangled Yarn Spool Straightener: Yari Recinos Click Yes if Unassisted: No Anesthesia Type: General Operative Notes Closure Type: primary Specimen(s): none sent Applied: catheter Estimated Blood Loss (mL): 150 Blood products transfused: none Patient was admitted to the hospital for the above-mentioned procedure. Patient consented to the same. Patient taken to the operating room on January 03, 2022. Patient back in his room recovering well as in stable condition. Physical therapy is recommended halfway facility placement. Patient will be discharged to halfway facility today. Exam Vital Signs (past 8 hours): - 01/06/22 03:00 01/06/22 08:58 Temperature 98.8 F Pulse Rate 76 76 Respiratory Rate 14 Blood Pressure 116/45 L 148/78 H Pulse Oximetry 97 Oxygen Delivery Method Nasal Cannula Oxygen Flow Rate 0 Narrative Exam Narrative: 81-year-old male resting comfortably in bed in no apparent distress. Dressing Clean, dry, intact.. Motor functions intact bilateral lower extremities. Sensation grossly intact to light touch bilateral lower extremities. Const General: cooperative Nutritional Appearance: average body habitus Orientation: alert Resp Effort & Inspection: normal respiratory effort Objective Labs Result Diagrams: 01/04/22 04:53 PFSH Medical History Arthritis BCC (basal cell carcinoma) Bilateral shoulder pain CAD (coronary artery disease) Diabetes Enlarged prostate HLD (hyperlipidemia) [place] (hard of hearing) HTN (hypertension) Neck pain Numbness PSVT (paroxysmal supraventricular tachycardia) Surgical History H/O vasectomy History of arthroplasty of right knee History of cardiac catheterization (2020) History of lumbar surgery (10/07/19) History of total right hip arthroplasty Hx of arthroscopy of left knee Hx of arthroscopy of right knee Hx of cystoscopy Hx of hernia repair Hx of left knee surgery (~2004) S/P CABG x 4 (~01/2017) Status post extracapsular cataract extraction of right eye Social History household members: none Smoking Status: Never smoker alcohol intake: current Discharge Assessment & Plan Assessment and Plan Assessment: Stable status post lumbar fusion Plan of Treatment: Mobilize with physical therapy, limit bending, twisting, lifting Multimodal pain management Follow-up with [facility] in 2 weeks Disposition, halfway facility today. Discharge Plan Discharge Plan Patient Disposition: SNF Discharge orders & Medications Prescriptions: New acetaminophen 325 mg Tablet 650 mg PO Q6HR PRN (Reason: Pain, Mild (1-3)) Qty: 60 0RF bisacodyl 10 mg Suppository 10 mg ID PRN PRN (Reason: Constipation) Qty: 5 0RF docusate sodium 100 mg Capsule 100 mg PO BID Qty: 10 0RF oxycodone 5 mg Tablet 10 mg PO Q3HR PRN (Reason: Pain, Severe (7-10)) Qty: 60 0RF hydroxyzine pamoate 25 mg Capsule 25 mg PO Q4HR PRN (Reason: Nausea And Vomiting) Qty: 60 0RF Continued polyethylene glycol 3350 [Miralax] 17 gram Powder In Packet 17 g PO DAILY 0RF coenzyme Q10 [Co Q-10] 200 mg Capsule 200 mg PO BEDTIME 0RF pravastatin 40 mg Tablet 40 mg PO BEDTIME 0RF prednisolone acetate 1 % Drops,Suspension 1 drp EYE-RIGHT BEDTIME 0RF metoprolol succinate 25 mg Tablet Extended Release 24 Hr 25 mg PO BID 0RF Label Comments: alfuzosin 10 mg Tablet Extended Release 24 Hr 10 mg PO BEDTIME 0RF Rx Instructions: administer after the same meal each day ranolazine 500 mg Tablet Extended Release 12 Hr 500 mg PO BID 0RF Repatha SureClick 140 mg/mL Pen Injector 140 mg SUBCUT Q2W 0RF Discontinued aspirin 81 mg Tablet,Delayed Release (Dr/Ec) 162 mg PO DAILY 0RF hydrocodone-acetaminophen 5-325 mg Tablet 1 tab PO Q4HR PRN (Reason: Pain, Moderate (4-6)) Qty: 40 0RF Label Comments: pt. states he took 2 tablets early and another 1 tablet 0800 with a total of 3 tabs ibuprofen 200 mg Tablet 200 mg PO BID 0RF Follow up/Referrals: Agus Denny MD [Primary Care Provider] - Aaron Rodriguez MD [Physician] - (2 weeks) Discharge Health Status Multidrug resistant organism: No MDRO Diet/Activity/Treatments Diet: Carb-consistent/Diabetic Activity: Limit bending, twisting, lifting Skin/Wound/Dressing Care Report to your healthcare provider any signs of infection, such as:: chills, fever, increased pain, unusual drainage and unusual redness Dressing: Keep dressing clean and dry Visit Report/Discharge Packet Instructions: DI for Prescription Opioid Use, DI for Transforaminal Lumbar Interbody Fusion Stand Alone Forms: Surgery Discharge Discharge Data Primary Care Provider: Agus Denny Attending Provider: Aaron Rodriguez
--- NOTE | 2022-01-06 09:24 | CM.DPNOTE ---
Addendum entered by Doris Finch, LUCÍA 01/06/22 11:43: ADD: [facility] does not take [employer]. Spoke w/son Jacob who asks about out of pocket cost at [facility] ? LM for Anna at [facility] requesting quote. Son explains that he can chk on patient multiple times daily but cannot stay w/patient 24/, neither can his , patient's DIL. In addition, patient's lady friend is at [facility] having surgery on a hiatial hernia so will not be of help (as initially intended) LM for [facility], asking if she could clinically accept patient and start patient's insurance auth request for potential admit Sunday (?) Spoke w/Clara at [facility] who is willing to review and begin authorization today (contracted w/insurance) Original Note: DCP Update Spoke w/Anna at [facility] yesterday; they are no longer contracted w/patient's insurance According to [facility], they cannot accept anyone for admission until next week Placed call to patient's son Jacob White, left detailed msg and requested alternative SNF options vs Home w/family and HH (?) MCR choice list (SNF and HH options) provided to patient POD#1 Patient discharged today to SNF by Ortho team, no SNF secured or insurance authorization secured at this time CM team will plan to review DCP w/patient and family today and can update Ortho team with result JW
--- NOTE | 2022-01-06 10:17 | OT.IP.TRT ---
Current Diagnoses Spinal stenosis, lumbar region without neurogenic claudication (01/05/22) Arthrodesis status (01/05/22) Surgery Performed Operation Date: 01/03/22 11:15 Actual Procedures p L3-4 TLIF, L4-S1 HWR, L4-5, L5-S1 laminectomy, L3-S1 PSF w. instrumentation - Aaron Rodriguez MD Occupational Therapy Treatment Note M2 OT-IP Current Condition Start: 01/04/22 12:55 Freq: Status: Active Protocol: Document 01/04/22 11:35 [facility] (Rec: 01/04/22 13:14 [facility] [id number]) Occupational Therapy Current Condition Current Condition Evaluation Date 01/04/22 Treatment Diagnosis S/p L3-4 TLIF, L4-S1 HWR, L5- S1 laminectomy, L3-5 PSI Diagnosis Onset Date 01/03/22 Post Operative Precautions Lumbar Precautions Log Roll,No Twisting,Limit Bending,Lifting Restriction of 10 lbs,Gait Belt above Incisional Area M3 OT- IP Subjective and Pain Start: 01/04/22 12:55 Freq: Status: Active Protocol: Document 01/06/22 09:15 [facility] (Rec: 01/06/22 11:21 [facility] [id number]) OT- Subjective Occupational Therapy Visit Type Type Treatment Note Visit Start Time 09:15 Visit Stop Time 10:17 Occupational Therapy Visit Comments Patient Comments Pt wanting to have a bowel movement and shower. Patient/Caregiver Goals To go to skilled rehab. OT Pain Assessment Pain When Pain Assessed At Rest Pain Present Pain Present Pain Reported Location low back Intensity 5 Scale Used Numeric (0 - 10) M4 OT- IP ADL's Start: 01/04/22 12:55 Freq: Status: Active Protocol: Document 01/06/22 09:15 [facility] (Rec: 01/06/22 11:21 [facility] [id number]) OT ROG-Hrcn-Bwdniza Comments OT Self-Feeding Comments NOt at meal time. OT ADL-Grooming Comments OT Grooming Comments Not performed. OT ADL-Oral Care Comments Oral Care Comments NOt performed. OT ADL-Dressing General Eval Lower Body Dressing Ability Moderate Assistance Comments OT Dressing Comments Assist to get his shoes on and assist to pull up brief over his hips due to pt needing to hold to the FWW for his balance. Pt able to use the medical front desk coordinator and sock aid to assist for brief and socks. OT ADL-Toileting General Evaluation Toileting Ability Minimal Assistance Areas Needing Assistance Manage Clothing Comments OT Toileting Comments Pt able to wipe appropriately and follow his back precautions but needing assist for his brief. OT ADL-Bathing General Evaluation Bathing Ability Moderate Assistance Areas Needing Assistance Wash/Dry Back,Wash/Dry Perineal Area,Wash/Dry Lower Extremities Comments OT Bathing Comments Pt needig to sit for showering needs. CGA while standing and use of grab bar and also needing assist for completeness for pericare needs. Pt needing assist for wash/dry his back and feet. M5 OT- IP IADL's Start: 01/04/22 12:55 Freq: Status: Active Protocol: Document 01/04/22 11:35 [facility] (Rec: 01/04/22 13:14 [facility] [id number]) OT-Instrumental Activities of Daily Living Home Safety Awareness Awareness of Need for Assistance at Home Good Awareness Home Safety Comments Pt states lives alone and son only able to assist 1 day. M6 OT- IP Functional Cognition Start: 01/04/22 12:55 Freq: Status: Active Protocol: Document 01/06/22 09:15 [facility] (Rec: 01/06/22 11:21 [facility] [id number]) Cognitive Factors Limiting Selfcare Function Cognitive Comments Cognitive Assessment Comments Pt able to recall his back precautions today and able to follow commands for all ADl and mobility needs. M7 OT- IP Mobility and Balance Start: 01/04/22 12:55 Freq: Status: Active Protocol: Document 01/06/22 09:15 [facility] (Rec: 01/06/22 11:21 [facility] [id number]) OT-Transfer Assessment Sit to and From Stand Sit to and from Stand Moderate Assistance Transfers Transfer Ability Minimal Assistance,Moderate Assistance Technique Transfer Destination Bed,Chair,Shower Stall,Toilet Transfer Technique Stand Step Pivot Devices Transfer Assistive Devices Gait Belt,Front Wheeled Walker Comments Mobility Comments Pt needing from FREDY to MODA to stand depending on the height of the surface coming up from . As pt tires needing MODA for balance and to also help step over the threshold of the shower for his balance. Pt too tired to get back to the bed from the shower and therefore agreed to just sit in the recliner after the shower to rest. OT- Balance Assessment Sitting Balance and Reactions Static Sitting Balance Ability Good Dynamic Sitting Balance Ability Good Standing Balance and Reactions Static Standing Balance Ability Fair Dynamic Standing Balance Ability Poor M8 OT- IP Objective Assessments Start: 01/04/22 12:55 Freq: Status: Active Protocol: Document 01/04/22 11:35 [facility] (Rec: 01/04/22 13:14 [facility] [id number]) OT Gross Range of Motion Upper Extremity Range of Motion Assessment Bilaterally Impaired OT Strength Upper Extremity Strength Assessment Bilaterally Impaired OT- Coordination Assessment Comments Coordination Comments Decreased for FMS OT-Muscle Tone Assessment Muscle Tone WNL Yes M9 OT- IP Assessment and Plan Start: 01/04/22 12:55 Freq: Status: Active Protocol: Document 01/06/22 09:15 [facility] (Rec: 01/06/22 11:21 [facility] [id number]) OT Summary Assessment and Plan Potential Rehabilitation Potential Good Analytic Complexity at Evaluation Low Summary OT Impairments Pain,Range of Motion,Strength, Balance,Functional Mobility, Grooming,Dressing,Toileting, Bathing,Toilet Transfers, Shower Transfers,Activity Tolerance Progress Towards Goals Progressing Toward Goals Assessment Summary Pt able to tolerate a shower and toileting needs today and able to practice use of LB dressing equipment to assist. Pt will benefit from skilled rehab to improve his activity tolerance and independence for ADl needs. At this time pt does not have enough endurance to get to his bathroom which is 20ft away. Pt is very motivated and cooperative. Goals Grooming Goal Independent Dressing Goal Independent Toileting Goal Independent Bathing Goal Independent Toilet Transfer Goal Independent Shower Transfer Goal Independent Days to Meet Goals 18 Frequency of Treatment Frequency Of Treatment Once a Day Treatment Plan OT Treatment Plan ADL Training,Functional Mobility,Patient/Family Education,Discharge Planning Discharge Recommendations OT Discharge Recommendations SNF Rehab Transportation Needs at Discharge Wheelchair/Cabulance
--- NOTE | 2022-01-06 12:30 | PT.IPTN ---
Current Diagnoses Spinal stenosis, lumbar region without neurogenic claudication (01/05/22) Arthrodesis status (01/05/22) Surgery Performed Operation Date: 01/03/22 11:15 Actual Procedures p L3-4 TLIF, L4-S1 HWR, L4-5, L5-S1 laminectomy, L3-S1 PSF w. instrumentation - Aaron Rodriguez MD Physical Therapy Treatment Note M2 PT-IP Current Condition Start: 01/04/22 08:24 Freq: NEEDED Status: Active Protocol: Document 01/06/22 12:04 SP (Rec: 01/06/22 13:29 SP [id number]) Physical Therapy Current Condition Current Condition Evaluation Date 01/04/22 Treatment Diagnosis s/p L3-S1 TLIF, lami; difficulty in walking Onset Date 01/03/22 M3 PT-IP Subjective Start: 01/04/22 08:24 Freq: NEEDED Status: Active Protocol: Document 01/06/22 12:04 SP (Rec: 01/06/22 13:29 SP [id number]) Subjective Physical Therapy Visit Type Type Treatment Note Visit Start Time 12:04 Visit Stop Time 12:30 Total Visit Minutes 26 Notes Vitals taken during tx: seated in chair: BP 149/46 HR 78, 96% on RA. Number of PERFORMANCE TEST ENGINEER Visits 3 Physical Therapy Visit Comments Patient Comments Pt agreeable to working with therapy, reported 5/10 rest, nurse asked if wanted pain meds and responded after working with therapy. Patient Goals Go to skilled rehab to get stronger before going home due to not having someone there to assist him all the time and needing alot help than thought. Therapy Pain Assessment Pain When Pain Assessed At Rest Pain Present Pain Present Pain Reported Location low back Intensity 5 Scale Used 5/10 at rest in chair, 8/10 during mobility Description With Movement Pain Behaviors Facial Grimacing Pain Management Techniques Distraction,Modification of Treatment,Re-positioning M4 PT-IP Mobility and Gait Start: 01/04/22 08:24 Freq: NEEDED Status: Active Protocol: Document 01/06/22 12:04 SP (Rec: 01/06/22 13:29 SP [id number]) PT-Bed Mobility Assessment Rolling Type of Rolling Log Rolling,Roll to Left Level of Assist Contact Guard Assistance Sit to Supine Sit to Supine Moderate Assistance,1 Person Assistance,Bedrails PT-Transfer Assessment Sit to and From Stand Sit to and from Stand Moderate Assistance,Maximum Assistance,1 Person Assistance ,Use of Upper Extremities Equipment Transfer Assistive Device Gait Belt,Front Wheeled Walker Orthotic/Prosthetic Devices or Brace: Yes Transfers Transfer Destination Bed Transfer Technique Pt ambulated w/ FWW Transfer Ability Level of Assist Moderate Assistance,Maximum Assistance,1 Person Assistance ,Use of Upper Extremities Comments Mobility Comments Pt in chair upon arrival and agreeable to ambulate and get back into bed. Pt able to scoot EOC SBA but c/o increased pain w/ mobilty and required extra time to perform . Pt sit<>Stand w/ FWW Max A x1 this tx and cues for hand placement, heavy UE WB on chair arms then transition to FWW. Pt then ambulated w/ FWW ~20 ft from chair to other side of bed Mod- Max A x1 w/ difficulty advancing L>RLE at time and biateral knee flexion L>R, heavy BUE WB on FWW, cued upright posture,quad fac prevent risk buckling. Pt ambulated slowly and c/o 8/10 LB pain. Mod A for sit<> Sidelying BUE support onto bed , logroll CGA, cues for core engagement and slow transition for spinal stabilization and decrease LB recruitment. Provided pillows under BLE, pt 's trunk leaned to L when he elevated HOB and stated not sure why is doing this has never in past, PERFORMANCE TEST ENGINEER provided folded sheet under L trunk for stability positioning to eat in bed. Pt had call light and all needs inreach with bed alarmed due to fall risk. Gait Assessment Gait Gait Assistance Required: Moderate Assistance,Maximum Assistance,1 Person Assist Distance (Feet) 20 Able to Maintain Weight Bearing Status Yes During Gait Assistive Devices Assistive Device Gait Belt,Front Wheeled Walker Orthotic/Prosthetic Devices or Brace: Yes Gait Deviations General Gait Pattern Antalgic,Decreased Stride Length,Decreased Feet Clearance,Flexed Trunk,Lateral Trunk Lean,Narrow Based Gait, Step-to Gait Factors Limiting Gait Function Factors Limiting Gait Function Decreased Activity Tolerance, Decreased Strength,Limited Range of Motion,Pain,Poor Balance,Poor Safety Awareness Comments Gait Comments Pt w/ increased knee flexion on LLE due to leg length discrepency. tends to lean to L more when becoming fatigued. Required increased support this tx. Stair Climbing Assessment Comments Stair Climbing Comments no stairs needed to assess for home. PT-Balance Assessment Sitting Balance and Reactions Static Sitting Balance Ability Good Dynamic Sitting Balance Ability Fair Standing Balance and Reactions Static Standing Balance Ability Poor Dynamic Standing Balance Ability Poor Device Used FWW M5 PT-IP Objective Assessments Start: 01/04/22 08:24 Freq: NEEDED Status: Active Protocol: Document 01/04/22 10:38 AW (Rec: 01/04/22 12:25 AW [id number]) Orientation Orientation/Cognition Level of Alertness Alert Orientation Name,Day of Week,Place, Situation Language Function Ability Hard of Hearing Safety Awareness Decreased Safety Awareness Memory Description Short Term Impaired Gross Range of Motion Upper Extremity ROM Impairments Pt states bilateral rotator cuff injuries limit his rotation. I switched to suspenders because they're easier. Lower Extremity ROM Assessment Bilaterally Impaired Impairments Pt lacks 5-10 degrees knee extension bilaterally Strength Lower Extremity Strength Assessment Bilaterally Impaired Hip 4-/5 Knee 4/5 Ankle 4/5 Sensation Assessment Sensation Gross Sensation WNL M6 PT-IP Treatment Start: 01/04/22 08:24 Freq: NEEDED Status: Active Protocol: Document 01/06/22 12:04 SP (Rec: 01/06/22 13:29 SP [id number]) Physical Therapy Treatment Education Education Provided Precautions,Safety M7 PT-IP Assessment and Plan Start: 01/04/22 08:24 Freq: NEEDED Status: Active Protocol: Document 01/06/22 12:04 SP (Rec: 01/06/22 13:29 SP [id number]) PT Summary Assessment and Plan Potential Rehabilitation Potential Good Status of Condition at Evaluation Evolving Summary Impairments Pain,ROM,Strength,Balance, Cognition,Bed Mobility, Transfers,Gait,Activity Tolerance Progress Towards Goals Slow Progress due to Pain,Slow Progress due to Activity Tolerance Assessment Summary Pt continues to be limited by pain and decreased strength and activitiy tolerance requiring increase assist this tx Mod- Max A x1 throughout tx using fWW, cues for upright posture and L>R LE clearance/ advancement prevent buckling with bend knees gait. He will require SNF to improve strength and activity tolerance. PERFORMANCE TEST ENGINEER recommending transfers only with nursing due to assist required and decrease knee extension. Goals Bed Mobility Goal Independent Transfer Goal Standby Assistance,Front Wheeled Walker Gait Goal Standby Assistance,Front Wheel Walker Gait Distance 200 Other Goals -- improve transfers and gait to SBA with 4WW Days to Meet Goals 10 Frequency of Treatment Frequency Of Treatment Twice a Day Treatment Plan Physical Therapy Treatment Plan Bed Mobility Training,Transfer Training,Gait Training, Therapeutic Exercise,Balance Retraining,Post Op Education, Discharge Planning,Hot or Cold Pack,Neuromuscular Re-ed Other Recommendations and Next Treatment don pt's own shoes; transfers Focus and gait with FWW; sit to stands to work on hip hinge Precautions Lumbar Precautions Log Roll,No Twisting,Limit Bending,Lifting Restriction of 10 lbs,Gait Belt above Incisional Area Other Precautions falls Recommendations To Nursing Amount of Assist Needed 2 Person Assist Discharge Recommendations PT Discharge Recommendations SNF Rehab Equipment Needed for Home Before defer to subacute rehab Discharge Transportation Needs at Discharge Wheelchair/Cabulance
--- NOTE | 2022-01-06 14:21 | CM.DPNOTE ---
Faxed referral packet and included PT/OT notes to [facility]. Received fax conf. Shey Hargrove CM Assist.
--- NOTE | 2022-01-06 15:11 | PT.IPTN ---
Current Diagnoses Spinal stenosis, lumbar region without neurogenic claudication (01/05/22) Arthrodesis status (01/05/22) Surgery Performed Operation Date: 01/03/22 11:15 Actual Procedures p L3-4 TLIF, L4-S1 HWR, L4-5, L5-S1 laminectomy, L3-S1 PSF w. instrumentation - Aaron Rodriguez MD Physical Therapy Treatment Note M2 PT-IP Current Condition Start: 01/04/22 08:24 Freq: NEEDED Status: Active Protocol: Document 01/06/22 14:32 SP (Rec: 01/06/22 15:32 SP [id number]) Physical Therapy Current Condition Current Condition Evaluation Date 01/04/22 Treatment Diagnosis s/p L3-S1 TLIF, lami; difficulty in walking Onset Date 01/03/22 M3 PT-IP Subjective Start: 01/04/22 08:24 Freq: NEEDED Status: Active Protocol: Document 01/06/22 14:32 SP (Rec: 01/06/22 15:32 SP [id number]) Subjective Physical Therapy Visit Type Type Treatment Note Visit Start Time 14:32 Visit Stop Time 15:11 Total Visit Minutes 39 Notes Son in room when arrived, observed tx. Son asked would like to know when will be seen to be able to observe txs tomorrow, will be here at 9 til after PT tx. Number of FOOT DOCTOR Visits 4 Physical Therapy Visit Comments Patient Comments Pt agreeable to working with therapy. Patient Goals Go to skilled rehab to get stronger before going home due to not having someone there to assist him all the time and needing alot help than thought. Therapy Pain Assessment Pain When Pain Assessed During Mobility Pain Present Pain Present Pain Reported Location low back Intensity 5 Scale Used 5/10 at rest in chair, 8/10 during mobility Description With Movement Pain Behaviors Facial Grimacing Pain Management Techniques Distraction,Modification of Treatment,Re-positioning M4 PT-IP Mobility and Gait Start: 01/04/22 08:24 Freq: NEEDED Status: Active Protocol: Document 01/06/22 14:32 SP (Rec: 01/06/22 15:32 SP [id number]) PT-Bed Mobility Assessment Rolling Type of Rolling Log Rolling,Roll to Right Level of Assist Contact Guard Assistance Sit to Supine Sit to Supine Moderate Assistance,1 Person Assistance,Bedrails Scooting Scooting to Edge of Bed Contact Guard Assistance, Minimal Assistance PT-Transfer Assessment Sit to and From Stand Sit to and from Stand Minimal Assistance,Moderate Assistance,1 Person Assistance ,Use of Upper Extremities Equipment Transfer Assistive Device Gait Belt,Front Wheeled Walker Orthotic/Prosthetic Devices or Brace: Yes Transfers Transfer Destination Chair,Bedside Commode Transfer Technique Stand Step Pivot w/ FWW Transfer Ability Level of Assist Minimal Assistance,Moderate Assistance,1 Person Assistance ,Use of Upper Extremities Comments Mobility Comments Pt elevated supine when arrived. Completed LR R using Bed rail CGA-[place], R SL>sit Mod A BLE and trunk righting, scoot CGA- Min. Instructed BL AP, LAQ march pre gait LE warms up. Sit>stand Mod A Initially, SPT to BSC Min A at times for FWW repositioning, Pt required assist for brief mgt in stanidng, stand>sit cued hand placement, Min A. Pt able void insitting and Sit> stand Mod A, Static stand 20 sec CGA using FWW BUE, while assist brief mgt, cued quad fac safety. Pt required sit rest on closed BSC. 1 min rest then completed 5x STS from BSC Mod A initally then cGA last rep and able walk around R side bed to chair, cued LLE advancement, tall posture body closer to FWW, Min> Mod> Max A x1 due to R trunk lean increased support required and forward posture B knees bent walking, improves with cues, decreased strength, 2 stop brief stand rests 20 ft total gait. SPT and cued back up fully then verbal/ contact cues reach slow descent chair Min A. Instructed seated march , LAQ and AP HEP when up in chair for self strengthening, son gave cues will help instruct in am when arrives at 9. Will continue to assess progress. Gait Assessment Gait Gait Assistance Required: Moderate Assistance,Maximum Assistance,1 Person Assist Distance (Feet) 20 Able to Maintain Weight Bearing Status Yes During Gait Assistive Devices Assistive Device Gait Belt,Front Wheeled Walker Orthotic/Prosthetic Devices or Brace: Yes Gait Deviations General Gait Pattern Antalgic,Decreased Stride Length,Decreased Feet Clearance,Flexed Trunk,Lateral Trunk Lean,Narrow Based Gait, Step-to Gait Factors Limiting Gait Function Factors Limiting Gait Function Decreased Activity Tolerance, Decreased Strength,Limited Range of Motion,Pain,Poor Balance,Poor Safety Awareness Comments Gait Comments Pt w/ increased knee flexion/ decreased foot clearance/ stride and WB on LLE due to leg length discrepency. He tends to lean to L more when becoming fatigued. Required increased support this tx. Stair Climbing Assessment Comments Stair Climbing Comments no stairs needed to assess for home. PT-Balance Assessment Sitting Balance and Reactions Static Sitting Balance Ability Good Dynamic Sitting Balance Ability Fair Standing Balance and Reactions Static Standing Balance Ability Poor Dynamic Standing Balance Ability Poor Device Used FWW Functional Assessments Functional Tests 5 Times Sit to Stand 5 reps, not timed from closed BSC pre gait M5 PT-IP Objective Assessments Start: 01/04/22 08:24 Freq: NEEDED Status: Active Protocol: Document 01/04/22 10:38 AW (Rec: 01/04/22 12:25 AW [id number]) Orientation Orientation/Cognition Level of Alertness Alert Orientation Name,Day of Week,Place, Situation Language Function Ability Hard of Hearing Safety Awareness Decreased Safety Awareness Memory Description Short Term Impaired Gross Range of Motion Upper Extremity ROM Impairments Pt states bilateral rotator cuff injuries limit his rotation. I switched to suspenders because they're easier. Lower Extremity ROM Assessment Bilaterally Impaired Impairments Pt lacks 5-10 degrees knee extension bilaterally Strength Lower Extremity Strength Assessment Bilaterally Impaired Hip 4-/5 Knee 4/5 Ankle 4/5 Sensation Assessment Sensation Gross Sensation WNL M6 PT-IP Treatment Start: 01/04/22 08:24 Freq: NEEDED Status: Active Protocol: Document 01/06/22 14:32 SP (Rec: 01/06/22 15:32 SP [id number]) Physical Therapy Treatment Exercises Exercises Ankle Pumps,Seated Knee Flexion/Extension Education Education Provided Precautions,Safety Other Treatments Other Treatment Performed Instructed marching seated in chair added to above HEP. M7 PT-IP Assessment and Plan Start: 01/04/22 08:24 Freq: NEEDED Status: Active Protocol: Document 01/06/22 14:32 SP (Rec: 01/06/22 15:32 SP [id number]) PT Summary Assessment and Plan Potential Rehabilitation Potential Good Status of Condition at Evaluation Evolving Summary Impairments Pain,ROM,Strength,Balance, Cognition,Bed Mobility, Transfers,Gait,Activity Tolerance Progress Towards Goals Slow Progress due to Pain,Slow Progress due to Activity Tolerance Assessment Summary Pt continues to be limited by pain and decreased strength and activitiy tolerance requiring increase assist this tx Mod- Max A x1 throughout tx using fWW, cues for upright posture, LLE clearance/stride advancement to prevent buckling with bend knees gait. He will require SNF to improve strength and activity tolerance. FOOT DOCTOR recommending transfers only with nursing due to assist required and decrease knee extension. Goals Bed Mobility Goal Independent Transfer Goal Standby Assistance,Front Wheeled Walker Gait Goal Standby Assistance,Front Wheel Walker Gait Distance 200 Other Goals -- improve transfers and gait to SBA with 4WW Days to Meet Goals 10 Frequency of Treatment Frequency Of Treatment Twice a Day Treatment Plan Physical Therapy Treatment Plan Bed Mobility Training,Transfer Training,Gait Training, Therapeutic Exercise,Balance Retraining,Post Op Education, Discharge Planning,Hot or Cold Pack,Neuromuscular Re-ed Other Recommendations and Next Treatment LE ex, don pt's own shoes; Focus transfers and gait with FWW; sit to stands to work on hip hinge Precautions Lumbar Precautions Log Roll,No Twisting,Limit Bending,Lifting Restriction of 10 lbs,Gait Belt above Incisional Area Other Precautions falls Recommendations To Nursing Amount of Assist Needed 2 Person Assist Discharge Recommendations PT Discharge Recommendations SNF Rehab Equipment Needed for Home Before defer to subacute rehab Discharge Transportation Needs at Discharge Wheelchair/Cabulance
--- NOTE | 2022-01-06 15:58 | CM.DPNOTE ---
DCP Update [facility]en at [facility] has clinically accepted this patient and will begin work on this auth request today, however, [facility]en will not have a bed available until Sunday possibly Sunday. Reviewed w/patient and son Don, discussed observation status, LANG reviewed by TIBURCIO Kat, also reviewed private cost at [facility] ( at approx $450 per day room/board, out of network for therapy coverage so high out of pocket cost) and discussed [facility] availability Patient/son request [facility]; son reiterates he cannot take patient safely home today and likely not over the next two days. Patient/son advised of potential for increased out of pocket cost d/t observation stay and increased LOS, patient/son state understanding In addition, educated patient/son that if SNF is not secured by Sunday or Sunday, patient will need b/u plan- home w/family and HH in place, patient/son stated understanding Plan: DC expected to [facility] Sunday pending auth from Jason HERNDON CM team will follow closely and hopefully coordinate SNF plan early next week, if not home w/family and HH referral. PASRR completed in anticipation of SNF upon DC JW
[2022-01-06] MEDS: ALFUZOSIN 10 MG 10 EACH PO (20:44)
[2022-01-06] MEDS: SODIUM CHLORIDE 0.9% FLUSH 10 ML IV (20:44)
[2022-01-06] MEDS: SENNOSIDES 8.6 MG TABLET 17.2 MG PO (20:44)
[2022-01-06] MEDS: PRAVASTATIN 20 MG TABLET 40 MG PO (20:44)
[2022-01-06] MEDS: prednisoLONE OPHTH SUSP 1 DROPS EYE-RIGHT (20:44)
[2022-01-06] MEDS: hydrOXYzine pamoate 25 MG CAPSULE PO (20:59)
--- NOTE | 2022-01-06 21:46 | PC.NURSE ---
Patient is alert and oriented although responses can be delayed. Is CRAIG and wears bilateral hearing aids. Breath sounds CTA with RA sat of 94%. HRR. Denied nausea. BT present and had BM earlier today. Voiding per urinal and denied dysuria, frequency or urgency. Is able to turn in bed with assistance. Dressing to back is CDI. Gait not assessed at this time. States he has numbness in bilateral LE but that it has improved since the surgery. Bilateral foot SCD's applied. Rated pain at shift change at 4/10 but declined offer of pain medication so took oxycodone + vistaril at 2100 for pain of 9/10. Fall risk score is high and bed alarm is activated.
[2022-01-07] VITALS (9 sets, daily range): BP systolic 110–144; BP diastolic 59–67; PULSE 74–91; RESP 15–20; TEMP 36.6–37.1; O2SAT 93–98
[2022-01-07] MEDS: OXYCODONE IR 5 MG TABLET 10 MG PO (02:57)
[2022-01-07] MEDS: RANOLAZINE 500 MG TAB.ER.12H PO ×2 (08:58→21:12)
[2022-01-07] MEDS: METOPROLOL ER 25 MG TABLET PO ×2 (08:59→21:13)
[2022-01-07] MEDS: DOCUSATE 100 MG CAPSULE PO ×2 (08:59→21:12)
[2022-01-07] MEDS: polyethylene glycoL 3350 17 GM POWD.PACK PO (08:59)
[2022-01-07] MEDS: SODIUM CHLORIDE 0.9% FLUSH 10 ML IV ×2 (09:00→21:13)
[2022-01-07] MEDS: HYDROCODONE/ACET 5/325 TABLET 1 TAB PO ×3 (09:02→21:12)
--- NOTE | 2022-01-07 09:09 | P.DS_ITS ---
History of Present Illness History of Present Illness Date Patient Seen: 01/07/22 Time Patient Seen: 09:09 Chief complaint: Back pain Narrative: History and physical is contained in the chart previously completed note. This is an addendum to a prior discharge summary dictated yesterday. The patient remained in the hospital overnight. He is still ready for discharge to a [place] [facility] facility as soon as a bed is available for acceptance. Discharge Providers Provider Date of admission: 01/05/22 09:09 Discharge Date: 01/07/22 Primary care physician: Agus Denny MD Consults: 01/03/22 17:46 Consult to Occupational Therapy Evaluate & Treat Comment: Physician Instructions: Evaluate and treat Consult to Physical Therapy Evaluate & Treat Comment: Physician Instructions: Evaluate and Treat Discharge provider: Bayron Chung MD Summary Hospital Course Discharge Diagnosis: As per previous discharge summary Hospital Course: Since yesterday's note the patient remained in the hospital. He does have disc omfort but is making slow progress with physical therapy. He is not yet ready for safe discharge home. He is planned for discharge to [place] [facility]. Status at Discharge Cognitive/behavioral status at discharge: at baseline, oriented Functional status at discharge: uses cane/walker Overall status at discharge: patient is progressing back to baseline Time Spent with Patient Time spent: Less than 30 minutes Exam Vital Signs (past 8 hours): - 01/07/22 05:00 01/07/22 08:05 01/07/22 08:59 Temperature 98.7 F 98.2 F Pulse Rate 85 91 H 91 H Respiratory Rate 16 15 Blood Pressure 110/60 131/67 131/67 Pulse Oximetry 95 93 Oxygen Delivery Method Room Air Oxygen Flow Rate 0 Narrative Exam Narrative: Wound is dressed with no drainage on the bandage. Light touch is intact and motion is intact in both lower extremities. Calves are soft. Objective Labs Result Diagrams: 01/04/22 04:53 PFSH Medical History Arthritis BCC (basal cell carcinoma) Bilateral shoulder pain CAD (coronary artery disease) Diabetes Enlarged prostate HLD (hyperlipidemia) [place] (hard of hearing) HTN (hypertension) Neck pain Numbness PSVT (paroxysmal supraventricular tachycardia) Surgical History H/O vasectomy History of arthroplasty of right knee History of cardiac catheterization (2020) History of lumbar surgery (10/07/19) History of total right hip arthroplasty Hx of arthroscopy of left knee Hx of arthroscopy of right knee Hx of cystoscopy Hx of hernia repair Hx of left knee surgery (~2004) S/P CABG x 4 (~01/2017) Status post extracapsular cataract extraction of right eye Social History household members: none Smoking Status: Never smoker alcohol intake: current Discharge Assessment & Plan Assessment and Plan Assessment: Stable status post lumbar fusion, mild post hemorrhagic anemia. Plan of Treatment: Mobilize with physical therapy, limit bending, twisting, lifting Multimodal pain management Follow-up with [facility] in 2 weeks Disposition, [place] [facility] today. Discharge Plan Discharge Plan Patient Disposition: SNF Transfer to: [facility] Transportation: Facility vehicle I certify the postop hospital [place] [facility] care is medically necessary on a continuing basis for any conditions for which he/ she received care during this hospitalization.: Yes The receiving facility has agreed to accept transfer and provide medical treatment.: Yes Discharge orders & Medications Prescriptions: New acetaminophen 325 mg Tablet 650 mg PO Q6HR PRN (Reason: Pain, Mild (1-3)) Qty: 60 0RF bisacodyl 10 mg Suppository 10 mg WA PRN PRN (Reason: Constipation) Qty: 5 0RF docusate sodium 100 mg Capsule 100 mg PO BID Qty: 10 0RF oxycodone 5 mg Tablet 10 mg PO Q3HR PRN (Reason: Pain, Severe (7-10)) Qty: 60 0RF hydroxyzine pamoate 25 mg Capsule 25 mg PO Q4HR PRN (Reason: Nausea And Vomiting) Qty: 60 0RF Continued polyethylene glycol 3350 [Miralax] 17 gram Powder In Packet 17 g PO DAILY 0RF coenzyme Q10 [Co Q-10] 200 mg Capsule 200 mg PO BEDTIME 0RF pravastatin 40 mg Tablet 40 mg PO BEDTIME 0RF prednisolone acetate 1 % Drops,Suspension 1 drp EYE-RIGHT BEDTIME 0RF metoprolol succinate 25 mg Tablet Extended Release 24 Hr 25 mg PO BID 0RF Label Comments: alfuzosin 10 mg Tablet Extended Release 24 Hr 10 mg PO BEDTIME 0RF Rx Instructions: administer after the same meal each day ranolazine 500 mg Tablet Extended Release 12 Hr 500 mg PO BID 0RF Repatha SureClick 140 mg/mL Pen Injector 140 mg SUBCUT Q2W 0RF Discontinued aspirin 81 mg Tablet,Delayed Release (Dr/Ec) 162 mg PO DAILY 0RF hydrocodone-acetaminophen 5-325 mg Tablet 1 tab PO Q4HR PRN (Reason: Pain, Moderate (4-6)) Qty: 40 0RF Label Comments: pt. states he took 2 tablets early and another 1 tablet 0800 with a total of 3 tabs ibuprofen 200 mg Tablet 200 mg PO BID 0RF Follow up/Referrals: Agus Denny MD [Primary Care Provider] - Aaron Rodriguez MD [Physician] - (2 weeks) Discharge Health Status Multidrug resistant organism: No MDRO Diet/Activity/Treatments Diet: Carb-consistent/Diabetic Activity: Limit bending, twisting, lifting Skin/Wound/Dressing Care Report to your healthcare provider any signs of infection, such as:: chills, fever, increased pain, unusual drainage and unusual redness Dressing: Keep dressing clean and dry [facility] Reason for rehabilitation: Post-operative therapy Rehab type: Physical therapy and Occupational therapy Visit Report/Discharge Packet Instructions: DI for Prescription Opioid Use, DI for Transforaminal Lumbar Interbody Fusion Stand Alone Forms: Surgery Discharge Discharge Data Primary Care Provider: Agus Denny Attending Provider: Aaron Rodriguez
--- NOTE | 2022-01-07 10:33 | OT.IP.TRT ---
Current Diagnoses Spinal stenosis, lumbar region without neurogenic claudication (01/05/22) Arthrodesis status (01/05/22) Surgery Performed Operation Date: 01/03/22 11:15 Actual Procedures p L3-4 TLIF, L4-S1 HWR, L4-5, L5-S1 laminectomy, L3-S1 PSF w. instrumentation - Aaron Rodriguez MD Occupational Therapy Treatment Note M2 OT-IP Current Condition Start: 01/04/22 12:55 Freq: Status: Active Protocol: Document 01/04/22 11:35 [facility] (Rec: 01/04/22 13:14 [facility] [id number]) Occupational Therapy Current Condition Current Condition Evaluation Date 01/04/22 Treatment Diagnosis S/p L3-4 TLIF, L4-S1 HWR, L5- S1 laminectomy, L3-5 PSI Diagnosis Onset Date 01/03/22 Post Operative Precautions Lumbar Precautions Log Roll,No Twisting,Limit Bending,Lifting Restriction of 10 lbs,Gait Belt above Incisional Area M3 OT- IP Subjective and Pain Start: 01/04/22 12:55 Freq: Status: Active Protocol: Document 01/07/22 10:34 [facility] (Rec: 01/07/22 10:50 [facility] [id number]) OT- Subjective Occupational Therapy Visit Type Type Treatment Note Visit Start Time 09:53 Visit Stop Time 10:33 Total Visit Minutes 40 Occupational Therapy Visit Comments Patient Comments Pt wanting to use the bathroom and pt's son present at the end of the session. COMPUTING CONSULTANT came in at the end of the session and start caregiver training with pt's son. Patient/Caregiver Goals TO go to skilled rehab. OT Pain Assessment Pain When Pain Assessed During Mobility Pain Present Pain Present Pain Reported Location low back Intensity 5 Scale Used Numeric (0 - 10) M4 OT- IP ADL's Start: 01/04/22 12:55 Freq: Status: Active Protocol: Document 01/07/22 10:34 [facility] (Rec: 01/07/22 10:50 [facility] [id number]) OT HSA-Aaza-Eklsife Comments OT Self-Feeding Comments NOt at meal time. OT ADL-Grooming Comments OT Grooming Comments Not performed. OT ADL-Oral Care Comments Oral Care Comments NOt performed. OT ADL-Dressing General Eval Lower Body Dressing Ability Moderate Assistance,Maximum Assistance Areas Needing Assistance Underpants/Brief,Shoes Comments OT Dressing Comments Due to pt's feet a little swollen pt unable to use shoe horn to get his shoes on and needing assist. Pt also needing assist to help pull up his brief over his hips due to decreased balance. Pt able to use the credit assistant to get the brief on over his feet. OT ADL-Toileting General Evaluation Toileting Ability Minimal Assistance Areas Needing Assistance Manage Clothing Comments OT Toileting Comments Pt able to wipe appropriately and follow his back precautions but needing assist for his brief. Pt educated to have one hand on the FWW and other to assist for his brief and then switch hands and do the same. Pt needing assist for completeness and balance as unsteady on his feet. OT ADL-Bathing Comments OT Bathing Comments Not performed. M5 OT- IP IADL's Start: 01/04/22 12:55 Freq: Status: Active Protocol: Document 01/04/22 11:35 [facility] (Rec: 01/04/22 13:14 [facility] [id number]) OT-Instrumental Activities of Daily Living Home Safety Awareness Awareness of Need for Assistance at Home Good Awareness Home Safety Comments Pt states lives alone M6 OT- IP Functional Cognition Start: 01/04/22 12:55 Freq: Status: Active Protocol: Document 01/07/22 10:34 [facility] (Rec: 01/07/22 10:50 [facility] [id number]) Cognitive Factors Limiting Selfcare Function Cognitive Ability Level of Alertness Alert Attention Span Ability Capable of Focused Attention, Capable of Sustained Attention Ability to Follow Commands Able to Follow One Step Commands Cognitive Comments Cognitive Assessment Comments Pt much more alert today and able to follow commands for ADL and mobility needs. Pt needing cues for safety awareness to be sure to keep the FWW in front of him and to back up to surfaces before sitting down. M7 OT- IP Mobility and Balance Start: 01/04/22 12:55 Freq: Status: Active Protocol: Document 01/07/22 10:34 [facility] (Rec: 01/07/22 10:50 [facility] [id number]) OT- Bed Mobility Assessment Rolling Type of Rolling Roll to Right Level of Assistance Moderate Assistance Supine to Sit Supine to Sit Assist Minimal Assistance,Moderate Assistance OT-Transfer Assessment Sit to and From Stand Sit to and from Stand Moderate Assistance Transfers Transfer Ability Minimal Assistance,Moderate Assistance Technique Transfer Destination Bed,Chair,Toilet Transfer Technique Stand Step Pivot Devices Transfer Assistive Devices Gait Belt,Front Wheeled Walker Comments Mobility Comments Pt needing MODA to help roll to his side and get upright to the edge of the bed. MODA to stand. Pt initially able to walk with FWW with FREDY and than as he tires needing MODA assist at time to help steer the FWW. OT- Balance Assessment Sitting Balance and Reactions Static Sitting Balance Ability Good Dynamic Sitting Balance Ability Good Standing Balance and Reactions Static Standing Balance Ability Fair Dynamic Standing Balance Ability Poor M8 OT- IP Objective Assessments Start: 01/04/22 12:55 Freq: Status: Active Protocol: Document 01/04/22 11:35 [facility] (Rec: 01/04/22 13:14 [facility] [id number]) OT Gross Range of Motion Upper Extremity Range of Motion Assessment Bilaterally Impaired OT Strength Upper Extremity Strength Assessment Bilaterally Impaired OT- Coordination Assessment Comments Coordination Comments Decreased for FMS OT-Muscle Tone Assessment Muscle Tone WNL Yes M9 OT- IP Assessment and Plan Start: 01/04/22 12:55 Freq: Status: Active Protocol: Document 01/07/22 10:34 [facility] (Rec: 01/07/22 10:50 [facility] [id number]) OT Summary Assessment and Plan Potential Rehabilitation Potential Good Analytic Complexity at Evaluation Low Summary OT Impairments Pain,Range of Motion,Strength, Balance,Functional Mobility, Grooming,Dressing,Toileting, Bathing,Toilet Transfers, Shower Transfers,Activity Tolerance Progress Towards Goals Progressing Toward Goals Assessment Summary Pt able to practice use of LB dressing equipment for toileting needs. Pt still having decreased activity tolerance and needing standing rest break while trying to walk to the bathroom with the FWW and needing from FREDY to MODA for balance. Pt will greatly benefit from skilled rehab and is very pleasant and motivated to get better. Goals Grooming Goal Independent Dressing Goal Independent Toileting Goal Independent Bathing Goal Independent Toilet Transfer Goal Independent Shower Transfer Goal Independent Days to Meet Goals 17 Frequency of Treatment Frequency Of Treatment Once a Day Treatment Plan OT Treatment Plan ADL Training,Functional Mobility,Patient/Family Education,Discharge Planning Discharge Recommendations OT Discharge Recommendations SNF Rehab Transportation Needs at Discharge Wheelchair/Cabulance
--- NOTE | 2022-01-07 10:40 | PT.IPTN ---
Current Diagnoses Spinal stenosis, lumbar region without neurogenic claudication (01/05/22) Arthrodesis status (01/05/22) Surgery Performed Operation Date: 01/03/22 11:15 Actual Procedures p L3-4 TLIF, L4-S1 HWR, L4-5, L5-S1 laminectomy, L3-S1 PSF w. instrumentation - Aaron Rodriguez MD Physical Therapy Treatment Note M2 PT-IP Current Condition Start: 01/04/22 08:24 Freq: NEEDED Status: Active Protocol: Document 01/07/22 11:50 RBD (Rec: 01/07/22 12:09 RBD [id number]) Physical Therapy Current Condition Current Condition Evaluation Date 01/04/22 Treatment Diagnosis s/p L3-S1 TLIF, lami; difficulty in walking Onset Date 01/03/22 M3 PT-IP Subjective Start: 01/04/22 08:24 Freq: NEEDED Status: Active Protocol: Document 01/07/22 11:50 RBD (Rec: 01/07/22 12:09 RBD [id number]) Subjective Physical Therapy Visit Type Type Treatment Note Visit Start Time 10:14 Visit Stop Time 10:40 Total Visit Minutes 26 Notes OT in room with Pt upon arrival. Son obseerve tx and began caregiver training. Number of ADMIN PROG COORD Visits 5 Physical Therapy Visit Comments Patient Comments Pt agreeable to working with therapy. Patient Goals Go to skilled rehab to get stronger before going home due to not having someone there to assist him all the time and needing alot help than thought. Therapy Pain Assessment Pain When Pain Assessed During Mobility Pain Present Pain Present Pain Reported Location low back Intensity 4 Scale Used 4/10 at rest in chair, and 6/ 10 during mobility Description With Movement Pain Behaviors Facial Grimacing Pain Management Techniques Distraction,Modification of Treatment,Re-positioning M4 PT-IP Mobility and Gait Start: 01/04/22 08:24 Freq: NEEDED Status: Active Protocol: Document 01/07/22 11:50 RBD (Rec: 01/07/22 12:09 RBD [id number]) PT-Transfer Assessment Sit to and From Stand Sit to and from Stand Minimal Assistance,Moderate Assistance,1 Person Assistance ,Use of Upper Extremities Equipment Transfer Assistive Device Gait Belt,Front Wheeled Walker Orthotic/Prosthetic Devices or Brace: Yes Transfers Transfer Destination Chair Transfer Technique Pt ambulated w/ FWW Transfer Ability Level of Assist Minimal Assistance,Moderate Assistance,1 Person Assistance ,Use of Upper Extremities Comments Mobility Comments Pt in bathroom w/ OT upon arrival. Completed ~ 5 feet ambulation w/ FFW to chair Min A and curing for posture and walker management. Min A for stand to sit. Patient performed sit to stand x 5 w/ Min A. Ambulated ~ 8 feet to sink and back to chair w/ Min A. Returned to chair, chair allarm set and all needs in reach. Gait Assessment Gait Gait Assistance Required: Moderate Assistance,Maximum Assistance,1 Person Assist Distance (Feet) 13 Able to Maintain Weight Bearing Status Yes During Gait Assistive Devices Assistive Device Gait Belt,Front Wheeled Walker Orthotic/Prosthetic Devices or Brace: Yes Gait Deviations General Gait Pattern Antalgic,Decreased Stride Length,Decreased Feet Clearance,Flexed Trunk,Lateral Trunk Lean,Narrow Based Gait, Step-to Gait Factors Limiting Gait Function Factors Limiting Gait Function Decreased Activity Tolerance, Decreased Strength,Limited Range of Motion,Pain,Poor Balance,Poor Safety Awareness Comments Gait Comments Pt / increased knee flexion an LLE. Occational L lean during ambulation. L Lean increases w/ fatuige. Stair Climbing Assessment Comments Stair Climbing Comments no stairs needed to assess for home. PT-Balance Assessment Sitting Balance and Reactions Static Sitting Balance Ability Good Dynamic Sitting Balance Ability Fair Standing Balance and Reactions Static Standing Balance Ability Fair Dynamic Standing Balance Ability Poor Device Used FWW M5 PT-IP Objective Assessments Start: 01/04/22 08:24 Freq: NEEDED Status: Active Protocol: Document 01/04/22 10:38 AW (Rec: 01/04/22 12:25 AW [id number]) Orientation Orientation/Cognition Level of Alertness Alert Orientation Name,Day of Week,Place, Situation Language Function Ability Hard of Hearing Safety Awareness Decreased Safety Awareness Memory Description Short Term Impaired Gross Range of Motion Upper Extremity ROM Impairments Pt states bilateral rotator cuff injuries limit his rotation. I switched to suspenders because they're easier. Lower Extremity ROM Assessment Bilaterally Impaired Impairments Pt lacks 5-10 degrees knee extension bilaterally Strength Lower Extremity Strength Assessment Bilaterally Impaired Hip 4-/5 Knee 4/5 Ankle 4/5 Sensation Assessment Sensation Gross Sensation WNL M6 PT-IP Treatment Start: 01/04/22 08:24 Freq: NEEDED Status: Active Protocol: Document 01/07/22 11:50 RBD (Rec: 01/07/22 12:09 RBD [id number]) Physical Therapy Treatment Exercises Exercises Ankle Pumps,Seated Knee Flexion/Extension Education Education Provided Precautions,Safety Other Treatments Other Treatment Performed Started caregiver training w/ pt son. He donned and doffed gait belt, assited w/ sit to stand and ambulaiton. M7 PT-IP Assessment and Plan Start: 01/04/22 08:24 Freq: NEEDED Status: Active Protocol: Document 01/07/22 11:50 RBD (Rec: 01/07/22 12:09 RBD [id number]) PT Summary Assessment and Plan Potential Rehabilitation Potential Good Status of Condition at Evaluation Evolving Summary Impairments Pain,ROM,Strength,Balance, Cognition,Bed Mobility, Transfers,Gait,Activity Tolerance Progress Towards Goals Slow Progress due to Pain,Slow Progress due to Activity Tolerance Assessment Summary Pt limited by decreased strength and activitiy tolerance. Mod A x 1 required dureig ambulation w/ FWW. Cueing required throughout treatment for upright posture. Need Snf to improve strenght for safe ambulation and participation in ADLs. Goals Bed Mobility Goal Independent Transfer Goal Standby Assistance,Front Wheeled Walker Gait Goal Standby Assistance,Front Wheel Walker Gait Distance 200 Other Goals -- improve transfers and gait to SBA with 4WW Days to Meet Goals 10 Frequency of Treatment Frequency Of Treatment Twice a Day Treatment Plan Physical Therapy Treatment Plan Bed Mobility Training,Transfer Training,Gait Training, Therapeutic Exercise,Balance Retraining,Post Op Education, Discharge Planning,Hot or Cold Pack,Neuromuscular Re-ed Other Recommendations and Next Treatment LE ex, don pt's own shoes; Focus transfers and gait with FWW; sit to stands to work on hip hinge Precautions Lumbar Precautions Log Roll,No Twisting,Limit Bending,Lifting Restriction of 10 lbs,Gait Belt above Incisional Area Other Precautions falls Recommendations To Nursing Amount of Assist Needed 2 Person Assist Discharge Recommendations PT Discharge Recommendations SNF Rehab Equipment Needed for Home Before defer to subacute rehab Discharge Transportation Needs at Discharge Wheelchair/Cabulance
--- NOTE | 2022-01-07 12:40 | CM.DPC ---
DCP SNF Planning: Per Ortho , pt medically stable to d/c once SNF placement secured. Per PT/OT, pt remains unsafe for d/c to home alone at this time and requires fair amount of assist with transfers and mobility. PT/OT will continue to work with pt and son in case he progresses enough for safe return home with son to assist a few times a day and HH otherwise will remain with plan of SNF at d/c. SW confirmed with [facility] that they initiated [employer] auth and obtained it last night but no bed available until Sunday and (today is Sat). They anticipate accepting him Sun if they have staff/bed for two admits. SW called [facility] who confirms that they could accept pt if needed and will have beds Sunday as a backup plan. SW updated RN who kindly will update son and pt bedside that plan still currently remains SNF likely Sunday. [facility] had already printed off copy of pt's COVID vax and pt fully vaccinated with booster and scanned into pt chart and already provided to SNFs in referral. Plan: SW to follow for pt's progress over the weekend with PT/OT towards plan of SNF ([facility] or [facility] Sunday, whichever has a bed available) and [employer] already approved SNF auth. LUCÍA Jose
--- NOTE | 2022-01-07 13:00 | PC.NURSE ---
at this time pt's pain is 4/10. sitting in chair. son at bedside and said pt is more awake and alert than usual. son thinks oxycodone was too much for him and it made him very drowsy. call light in reach.
--- NOTE | 2022-01-07 13:32 | PT.IPTN ---
Current Diagnoses Spinal stenosis, lumbar region without neurogenic claudication (01/05/22) Arthrodesis status (01/05/22) Surgery Performed Operation Date: 01/03/22 11:15 Actual Procedures p L3-4 TLIF, L4-S1 HWR, L4-5, L5-S1 laminectomy, L3-S1 PSF w. instrumentation - Aaron Rodriguez MD Physical Therapy Treatment Note M2 PT-IP Current Condition Start: 01/04/22 08:24 Freq: NEEDED Status: Active Protocol: Document 01/07/22 13:33 RBD (Rec: 01/07/22 13:50 RBD [id number]) Physical Therapy Current Condition Current Condition Evaluation Date 01/04/22 Treatment Diagnosis s/p L3-S1 TLIF, lami; difficulty in walking Onset Date 01/03/22 M3 PT-IP Subjective Start: 01/04/22 08:24 Freq: NEEDED Status: Active Protocol: Document 01/07/22 13:33 RBD (Rec: 01/07/22 13:50 RBD [id number]) Subjective Physical Therapy Visit Type Type Treatment Note Visit Start Time 13:11 Visit Stop Time 13:32 Total Visit Minutes 21 Number of FILM WRITER Visits 6 Physical Therapy Visit Comments Patient Comments Pt agreeable to working with therapy. Patient Goals Go to skilled rehab to get stronger before going home due to not having someone there to assist him all the time and needing alot help than thought. Therapy Pain Assessment Pain When Pain Assessed During Mobility Pain Present Pain Present Pain Reported Location low back Intensity 5 Scale Used 5/10 at rest and mobility Description With Movement Pain Behaviors Facial Grimacing Pain Management Techniques Distraction,Modification of Treatment,Re-positioning M4 PT-IP Mobility and Gait Start: 01/04/22 08:24 Freq: NEEDED Status: Active Protocol: Document 01/07/22 13:33 RBD (Rec: 01/07/22 13:50 RBD [id number]) PT-Bed Mobility Assessment Rolling Type of Rolling Log Rolling,Roll to Left Sit to Supine Sit to Supine Moderate Assistance,1 Person Assistance,Bedrails Scooting Scooting to Edge of Bed Minimal Assistance PT-Transfer Assessment Sit to and From Stand Sit to and from Stand Minimal Assistance,Moderate Assistance,1 Person Assistance ,Use of Upper Extremities Equipment Transfer Assistive Device Gait Belt,Front Wheeled Walker Orthotic/Prosthetic Devices or Brace: Yes Transfers Transfer Destination Bed Transfer Technique Pt ambulated w/ FWW Transfer Ability Level of Assist Minimal Assistance,Moderate Assistance,1 Person Assistance ,Use of Upper Extremities Comments Mobility Comments Pt in bathroom w/ FISH NET MAKER upon arrival. Required Min A for sit to stand from toliet and bref addjustment. Ambulated w/ FWW and mod cueing for posture ans walker management, from bathroom to doorway. Stoped for and hand saniter usage. Increased knee flexion noted and requied Mod A for standing balnace. Ambulated to the bed w/ decresaed use of L LE. denie inceae in pain or numbness in L LE. Mod A farrell stand to sit at EOB. Mod A for log roll and bed mobility. Gait Assessment Gait Gait Assistance Required: Moderate Assistance,1 Person Assist Distance (Feet) 20 Able to Maintain Weight Bearing Status Yes During Gait Assistive Devices Assistive Device Gait Belt,Front Wheeled Walker Orthotic/Prosthetic Devices or Brace: Yes Gait Deviations General Gait Pattern Antalgic,Decreased Stride Length,Decreased Feet Clearance,Flexed Trunk,Lateral Trunk Lean,Narrow Based Gait, Step-to Gait Factors Limiting Gait Function Factors Limiting Gait Function Decreased Activity Tolerance, Decreased Strength,Limited Range of Motion,Pain,Poor Balance,Poor Safety Awareness Comments Gait Comments Pt / increased knee flexion an LLE. Occational L lean during ambulation. L Lean increases w/ fatuige. L LE fatuiges quicker than R LE. Stair Climbing Assessment Comments Stair Climbing Comments no stairs needed to assess for home. PT-Balance Assessment Sitting Balance and Reactions Static Sitting Balance Ability Good Dynamic Sitting Balance Ability Fair Standing Balance and Reactions Static Standing Balance Ability Fair Dynamic Standing Balance Ability Poor Device Used FWW M5 PT-IP Objective Assessments Start: 01/04/22 08:24 Freq: NEEDED Status: Active Protocol: Document 01/04/22 10:38 AW (Rec: 01/04/22 12:25 AW [id number]) Orientation Orientation/Cognition Level of Alertness Alert Orientation Name,Day of Week,Place, Situation Language Function Ability Hard of Hearing Safety Awareness Decreased Safety Awareness Memory Description Short Term Impaired Gross Range of Motion Upper Extremity ROM Impairments Pt states bilateral rotator cuff injuries limit his rotation. I switched to suspenders because they're easier. Lower Extremity ROM Assessment Bilaterally Impaired Impairments Pt lacks 5-10 degrees knee extension bilaterally Strength Lower Extremity Strength Assessment Bilaterally Impaired Hip 4-/5 Knee 4/5 Ankle 4/5 Sensation Assessment Sensation Gross Sensation WNL M6 PT-IP Treatment Start: 01/04/22 08:24 Freq: NEEDED Status: Active Protocol: Document 01/07/22 13:33 RBD (Rec: 01/07/22 13:50 RBD [id number]) Physical Therapy Treatment Exercises Exercises Ankle Pumps,Seated Knee Flexion/Extension Education Education Provided Precautions,Safety M7 PT-IP Assessment and Plan Start: 01/04/22 08:24 Freq: NEEDED Status: Active Protocol: Document 01/07/22 13:33 RBD (Rec: 01/07/22 13:50 RBD [id number]) PT Summary Assessment and Plan Potential Rehabilitation Potential Good Status of Condition at Evaluation Evolving Summary Impairments Pain,ROM,Strength,Balance, Cognition,Bed Mobility, Transfers,Gait,Activity Tolerance Progress Towards Goals Slow Progress due to Pain,Slow Progress due to Activity Tolerance Assessment Summary Pt limited by decreased strength and activitiy tolerance. Mod A x 1 required dureig ambulation w/ FWW. Mod A for bed mobility and walker management. Requires increaded cueing w/ walker mangemnt when making turns. Will require SNF to improve strength and activity tolerance. Pt in bed w/ all need in reach, compression sleves on and bed alarm on. Goals Bed Mobility Goal Independent Transfer Goal Standby Assistance,Front Wheeled Walker Gait Goal Standby Assistance,Front Wheel Walker Gait Distance 200 Other Goals -- improve transfers and gait to SBA with 4WW Days to Meet Goals 10 Frequency of Treatment Frequency Of Treatment Twice a Day Treatment Plan Physical Therapy Treatment Plan Bed Mobility Training,Transfer Training,Gait Training, Therapeutic Exercise,Balance Retraining,Post Op Education, Discharge Planning,Hot or Cold Pack,Neuromuscular Re-ed Other Recommendations and Next Treatment LE ex, don pt's own shoes; Focus transfers and gait with FWW; sit to stands to work on hip hinge Precautions Lumbar Precautions Log Roll,No Twisting,Limit Bending,Lifting Restriction of 10 lbs,Gait Belt above Incisional Area Other Precautions falls Recommendations To Nursing Amount of Assist Needed 1 Person Assist,2 Person Assist Discharge Recommendations PT Discharge Recommendations SNF Rehab Equipment Needed for Home Before defer to subacute rehab Discharge Transportation Needs at Discharge Wheelchair/Cabulance
[2022-01-07] MEDS: PRAVASTATIN 20 MG TABLET 40 MG PO (21:12)
[2022-01-07] MEDS: ALFUZOSIN 10 MG 10 EACH PO (21:13)
[2022-01-07] MEDS: prednisoLONE OPHTH SUSP 1 DROPS EYE-RIGHT (21:13)
[2022-01-08] VITALS (10 sets, daily range): BP systolic 107–149; BP diastolic 50–76; PULSE 75–88; RESP 16–18; TEMP 36.3–36.9; O2SAT 94–98
[2022-01-08] MEDS: OXYCODONE IR 5 MG TABLET 10 MG PO (04:08)
--- NOTE | 2022-01-08 09:19 | P.PN_ITS ---
Subjective Subjective Date Patient Seen: 01/08/22 Time Patient Seen: 09:19 Interval history: The patient is comfortable and has no new complaints. Exam Vital Signs (past 8 hours): - 01/08/22 03:43 01/08/22 07:00 Temperature 97.7 F 97.4 F L Pulse Rate 85 85 Respiratory Rate 18 16 Blood Pressure 117/67 118/62 Pulse Oximetry 94 94 Oxygen Delivery Method Room Air Oxygen Flow Rate 0 Narrative Exam Narrative: The patient is examined while seated in a chair eating breakfast. He has intact light touch in both lower extremities. His calves are soft. He can dorsiflex and plantar flex his toes without difficulty. Objective Labs Result Diagrams: 01/04/22 04:53 PFSH Medical History Arthritis BCC (basal cell carcinoma) Bilateral shoulder pain CAD (coronary artery disease) Diabetes Enlarged prostate HLD (hyperlipidemia) [place] (hard of hearing) HTN (hypertension) Neck pain Numbness PSVT (paroxysmal supraventricular tachycardia) Surgical History H/O vasectomy History of arthroplasty of right knee History of cardiac catheterization (2020) History of lumbar surgery (10/07/19) History of total right hip arthroplasty Hx of arthroscopy of left knee Hx of arthroscopy of right knee Hx of cystoscopy Hx of hernia repair Hx of left knee surgery (~2004) S/P CABG x 4 (~01/2017) Status post extracapsular cataract extraction of right eye Social History household members: none Smoking Status: Never smoker alcohol intake: current Assessment & Plan Post-op Postoperative Procedures: Procedures Operation Date: 01/03/22 11:15 Actual Procedure Side Surgeon p L3-4 TLIF, L4-S1 HWR, L4-5, L5-S1 laminectomy, L3-S1 PSF w. instrumentation Aaron Rodriguez MD Postoperative day: 5 Postoperative status: doing well Postoperative status narrative: The patient is stable postoperative day 5 status post lumbosacral decompression and fusion by Dr. Rodriguez. He will require penitentiary placement due to inability to care for himself and unsafe ambulation. He has been stable for discharge but of bed has not been made available. We are informed there is a bed coming available at [facility] in [place] tomorrow. Postoperative plan: routine post-op care and discharge Postoperative plan narrative: He will receive physical therapy services here [facility]. [facility] when a bed becomes available. Time Spent With Patient Time with patient: less than 15 minutes
[2022-01-08] MEDS: polyethylene glycoL 3350 17 GM POWD.PACK PO (09:30)
[2022-01-08] MEDS: RANOLAZINE 500 MG TAB.ER.12H PO ×2 (09:30→21:43)
[2022-01-08] MEDS: HYDROCODONE/ACET 5/325 TABLET 1 TAB PO ×3 (09:30→19:41)
[2022-01-08] MEDS: DOCUSATE 100 MG CAPSULE PO ×2 (09:30→21:29)
[2022-01-08] MEDS: METOPROLOL ER 25 MG TABLET PO ×2 (09:30→21:29)
[2022-01-08] MEDS: SODIUM CHLORIDE 0.9% FLUSH 10 ML IV ×2 (09:31→21:31)
--- NOTE | 2022-01-08 11:55 | PT.IPTN ---
Current Diagnoses Spinal stenosis, lumbar region without neurogenic claudication (01/05/22) Arthrodesis status (01/05/22) Surgery Performed Operation Date: 01/03/22 11:15 Actual Procedures p L3-4 TLIF, L4-S1 HWR, L4-5, L5-S1 laminectomy, L3-S1 PSF w. instrumentation - Aaron Rodriguez MD Physical Therapy Treatment Note M2 PT-IP Current Condition Start: 01/04/22 08:24 Freq: NEEDED Status: Active Protocol: Document 01/07/22 13:33 RBD (Rec: 01/07/22 13:50 RBD [id number]) Physical Therapy Current Condition Current Condition Evaluation Date 01/04/22 Treatment Diagnosis s/p L3-S1 TLIF, lami; difficulty in walking Onset Date 01/03/22 M3 PT-IP Subjective Start: 01/04/22 08:24 Freq: NEEDED Status: Active Protocol: Document 01/08/22 11:55 AW (Rec: 01/08/22 12:11 AW [id number]) Subjective Physical Therapy Visit Type Type Treatment Note Visit Start Time 11:41 Visit Stop Time 11:55 Total Visit Minutes 14 Number of AUTOMOBILE MECHANIC HELPER Visits 0 Physical Therapy Visit Comments Patient Comments Pt agreeable to working with therapy. Patient Goals Go to skilled rehab to get stronger before going home due to not having someone there to assist him all the time and needing alot help than thought. Therapy Pain Assessment Pain When Pain Assessed During Mobility Pain Present Pain Present Pain Reported Location low back Intensity 5 Scale Used Numeric (0 - 10) M4 PT-IP Mobility and Gait Start: 01/04/22 08:24 Freq: NEEDED Status: Active Protocol: Document 01/08/22 11:55 AW (Rec: 01/08/22 12:11 AW [id number]) PT-Transfer Assessment Sit to and From Stand Sit to and from Stand Contact Guard Assistance, Moderate Assistance,1 Person Assistance,Use of Upper Extremities Equipment Transfer Assistive Device Gait Belt,Front Wheeled Walker Transfers Transfer Destination Bed,Chair Transfer Technique Pt ambulated w/ FWW Transfer Ability Level of Assist Minimal Assistance,Moderate Assistance,1 Person Assistance ,Use of Upper Extremities Comments Mobility Comments Pt was sitting up in the chair as PT arrived. He agreed to work on sit to stands. He stood from the chair mod A and used FWW to walk around the foot of the bed to sit on raised bed (2 higher than lowest setting). He practiced pre-standing weight shift with emphasis on hip hinge + weight shift with liftoff from the mattress x 5. He then completed sit to stand x 5 with improved mechanics and weight shifting. He used the FWW to walk back to the chair where he was positioned with legs elevated and call light/ tray table in reach. Gait Assessment Gait Gait Assistance Required: Moderate Assistance,1 Person Assist Distance (Feet) 15 Able to Maintain Weight Bearing Status Yes During Gait Assistive Devices Assistive Device Gait Belt,Front Wheeled Walker Orthotic/Prosthetic Devices or Brace: Yes Gait Deviations General Gait Pattern Antalgic,Decreased Stride Length,Decreased Feet Clearance,Flexed Trunk,Lateral Trunk Lean,Narrow Based Gait, Step-to Gait Factors Limiting Gait Function Factors Limiting Gait Function Decreased Activity Tolerance, Decreased Strength,Limited Range of Motion,Pain,Poor Balance,Poor Safety Awareness Comments Gait Comments Pt drags left foot until cued for clearance. He is able to minimally elevate LLE in response to cues but fatigues quickly. Stair Climbing Assessment Comments Stair Climbing Comments No stairs at home. PT-Balance Assessment Sitting Balance and Reactions Static Sitting Balance Ability Good Dynamic Sitting Balance Ability Fair Standing Balance and Reactions Static Standing Balance Ability Fair Dynamic Standing Balance Ability Poor Device Used FWW M5 PT-IP Objective Assessments Start: 01/04/22 08:24 Freq: NEEDED Status: Active Protocol: Document 01/04/22 10:38 AW (Rec: 01/04/22 12:25 AW [id number]) Orientation Orientation/Cognition Level of Alertness Alert Orientation Name,Day of Week,Place, Situation Language Function Ability Hard of Hearing Safety Awareness Decreased Safety Awareness Memory Description Short Term Impaired Gross Range of Motion Upper Extremity ROM Impairments Pt states bilateral rotator cuff injuries limit his rotation. I switched to suspenders because they're easier. Lower Extremity ROM Assessment Bilaterally Impaired Impairments Pt lacks 5-10 degrees knee extension bilaterally Strength Lower Extremity Strength Assessment Bilaterally Impaired Hip 4-/5 Knee 4/5 Ankle 4/5 Sensation Assessment Sensation Gross Sensation WNL M6 PT-IP Treatment Start: 01/04/22 08:24 Freq: NEEDED Status: Active Protocol: Document 01/08/22 11:55 AW (Rec: 01/08/22 12:11 AW [id number]) Physical Therapy Treatment Education Education Provided Precautions,Safety Other Treatments Other Treatment Performed Hip hinge practice from elevated surface. See mobility comments. M7 PT-IP Assessment and Plan Start: 01/04/22 08:24 Freq: NEEDED Status: Active Protocol: Document 01/08/22 11:55 AW (Rec: 01/08/22 12:11 AW [id number]) PT Summary Assessment and Plan Potential Rehabilitation Potential Good Status of Condition at Evaluation Evolving Summary Impairments Pain,ROM,Strength,Balance, Cognition,Bed Mobility, Transfers,Gait,Activity Tolerance Progress Towards Goals Slow Progress due to Pain,Slow Progress due to Activity Tolerance Assessment Summary Min/mod A required for all mobility. Focused treatment on hip hinge mechanics today for improved ability to maintain precautions and for BLE strength. Pt requires SNF rehab to improve strength and mobility independence. Goals Bed Mobility Goal Independent Transfer Goal Standby Assistance,Front Wheeled Walker Gait Goal Standby Assistance,Front Wheel Walker Gait Distance 200 Other Goals -- improve transfers and gait to SBA with 4WW Days to Meet Goals 10 Frequency of Treatment Frequency Of Treatment Twice a Day Treatment Plan Physical Therapy Treatment Plan Bed Mobility Training,Transfer Training,Gait Training, Therapeutic Exercise,Balance Retraining,Post Op Education, Discharge Planning,Hot or Cold Pack,Neuromuscular Re-ed Other Recommendations and Next Treatment Don pt's own shoes; transfers Focus and gait with FWW; sit to stands from lower surface to work on hip hinge Precautions Lumbar Precautions Log Roll,No Twisting,Limit Bending,Lifting Restriction of 10 lbs,Gait Belt above Incisional Area Other Precautions falls Recommendations To Nursing Amount of Assist Needed 1 Person Assist Discharge Recommendations PT Discharge Recommendations SNF Rehab Equipment Needed for Home Before defer to subacute rehab Discharge Transportation Needs at Discharge Wheelchair/Cabulance
--- NOTE | 2022-01-08 15:04 | PT.IPTN ---
Current Diagnoses Spinal stenosis, lumbar region without neurogenic claudication (01/05/22) Arthrodesis status (01/05/22) Surgery Performed Operation Date: 01/03/22 11:15 Actual Procedures p L3-4 TLIF, L4-S1 HWR, L4-5, L5-S1 laminectomy, L3-S1 PSF w. instrumentation - Aaron Rodriguez MD Physical Therapy Treatment Note M2 PT-IP Current Condition Start: 01/04/22 08:24 Freq: NEEDED Status: Active Protocol: Document 01/07/22 13:33 RBD (Rec: 01/07/22 13:50 RBD [id number]) Physical Therapy Current Condition Current Condition Evaluation Date 01/04/22 Treatment Diagnosis s/p L3-S1 TLIF, lami; difficulty in walking Onset Date 01/03/22 M3 PT-IP Subjective Start: 01/04/22 08:24 Freq: NEEDED Status: Active Protocol: Document 01/08/22 15:04 AW (Rec: 01/08/22 15:26 AW [id number]) Subjective Physical Therapy Visit Type Type Treatment Note Visit Start Time 14:40 Visit Stop Time 15:04 Total Visit Minutes 24 Number of ASSEMBLER MUSICAL EQUIPMENT Visits 0 Physical Therapy Visit Comments Patient Comments I was hoping I could walk some more. Patient Goals Pt hopes to d/c to SNF due to level of assist required. Therapy Pain Assessment Pain When Pain Assessed During Mobility Pain Present Pain Present Pain Reported Location low back Intensity 5 Scale Used Numeric (0 - 10) M4 PT-IP Mobility and Gait Start: 01/04/22 08:24 Freq: NEEDED Status: Active Protocol: Document 01/08/22 15:04 AW (Rec: 01/08/22 15:26 AW [id number]) PT-Transfer Assessment Sit to and From Stand Sit to and from Stand Minimal Assistance,Moderate Assistance,1 Person Assistance ,Use of Upper Extremities Equipment Transfer Assistive Device Gait Belt,Front Wheeled Walker Transfers Transfer Destination Chair,Toilet Transfer Technique Pt ambulated w/ FWW Transfer Ability Level of Assist Minimal Assistance,Moderate Assistance,1 Person Assistance ,Use of Upper Extremities Comments Mobility Comments Pt was in the chair as PT arrived. BP 1141/67 HR 87. He stood mod A and used FWW to ambulate 15 feet around the bed and sat EOB. He completed 5xSTS from elevated bed and then rested one minute before returning to the chair. He repeated this sequence one more time min/mod A throughout . Pt rested again and then agreed to one more lap. This time, he did not sit on the bed [place], walked back toward the chair, and continued walking to the toilet. Min A for transfer to the toilet. Pt thought he needed to sit for a while to have a bowel movement and agreed to call nursing when ready to get up. Pt was left with call light at hand and PT informed RN of pt's location. Gait Assessment Gait Gait Assistance Required: Minimum Assistance,Moderate Assistance,1 Person Assist Distance (Feet) 35 Able to Maintain Weight Bearing Status Yes During Gait Assistive Devices Assistive Device Gait Belt,Front Wheeled Walker Orthotic/Prosthetic Devices or Brace: Yes Gait Deviations General Gait Pattern Antalgic,Decreased Stride Length,Decreased Feet Clearance,Flexed Trunk,Lateral Trunk Lean,Narrow Based Gait, Step-to Gait Factors Limiting Gait Function Factors Limiting Gait Function Decreased Activity Tolerance, Decreased Strength,Limited Range of Motion,Pain,Poor Balance,Poor Safety Awareness Comments Gait Comments Pt self-cued for LLE foot clearance but continued to struggle. He needed cues for walker management (closer to trunk). Stair Climbing Assessment Comments Stair Climbing Comments No stairs at home. PT-Balance Assessment Sitting Balance and Reactions Static Sitting Balance Ability Good Dynamic Sitting Balance Ability Fair Standing Balance and Reactions Static Standing Balance Ability Fair Dynamic Standing Balance Ability Poor Device Used FWW M5 PT-IP Objective Assessments Start: 01/04/22 08:24 Freq: NEEDED Status: Active Protocol: Document 01/04/22 10:38 AW (Rec: 01/04/22 12:25 AW [id number]) Orientation Orientation/Cognition Level of Alertness Alert Orientation Name,Day of Week,Place, Situation Language Function Ability Hard of Hearing Safety Awareness Decreased Safety Awareness Memory Description Short Term Impaired Gross Range of Motion Upper Extremity ROM Impairments Pt states bilateral rotator cuff injuries limit his rotation. I switched to suspenders because they're easier. Lower Extremity ROM Assessment Bilaterally Impaired Impairments Pt lacks 5-10 degrees knee extension bilaterally Strength Lower Extremity Strength Assessment Bilaterally Impaired Hip 4-/5 Knee 4/5 Ankle 4/5 Sensation Assessment Sensation Gross Sensation WNL M6 PT-IP Treatment Start: 01/04/22 08:24 Freq: NEEDED Status: Active Protocol: Document 01/08/22 15:04 AW (Rec: 01/08/22 15:26 AW [id number]) Physical Therapy Treatment Education Education Provided Precautions,Safety Other Treatments Other Treatment Performed 5xSTS from elevated surface x 2 M7 PT-IP Assessment and Plan Start: 01/04/22 08:24 Freq: NEEDED Status: Active Protocol: Document 01/08/22 15:04 AW (Rec: 01/08/22 15:26 AW [id number]) PT Summary Assessment and Plan Potential Rehabilitation Potential Good Status of Condition at Evaluation Evolving Summary Impairments Pain,ROM,Strength,Balance, Cognition,Bed Mobility, Transfers,Gait,Activity Tolerance Progress Towards Goals Slow Progress due to Pain,Slow Progress due to Activity Tolerance Assessment Summary Pt continues to need in/mod assist for all mobility but was able to increase gait distance to 35 feet with FWW. Dynamic balance is poor and pt struggles to advance LLE. Sit to stand from elevated surface is slowly improving. Pt requires SNF rehab to improve strength and mobility independence. Goals Bed Mobility Goal Independent Transfer Goal Standby Assistance,Front Wheeled Walker Gait Goal Standby Assistance,Front Wheel Walker Gait Distance 200 Other Goals -- improve transfers and gait to SBA with 4WW Days to Meet Goals 10 Frequency of Treatment Frequency Of Treatment Twice a Day Treatment Plan Physical Therapy Treatment Plan Bed Mobility Training,Transfer Training,Gait Training, Therapeutic Exercise,Balance Retraining,Post Op Education, Discharge Planning,Hot or Cold Pack,Neuromuscular Re-ed Other Recommendations and Next Treatment Don pt's own shoes; transfers Focus and gait with FWW; sit to stands from lower surface to work on hip hinge Precautions Lumbar Precautions Log Roll,No Twisting,Limit Bending,Lifting Restriction of 10 lbs,Gait Belt above Incisional Area Other Precautions falls Recommendations To Nursing Amount of Assist Needed 1 Person Assist Discharge Recommendations PT Discharge Recommendations SNF Rehab Equipment Needed for Home Before defer to subacute rehab Discharge Transportation Needs at Discharge Wheelchair/Cabulance
[2022-01-08] MEDS: PRAVASTATIN 20 MG TABLET 40 MG PO (21:29)
[2022-01-08] MEDS: SENNOSIDES 8.6 MG TABLET 17.2 MG PO (21:30)
[2022-01-08] MEDS: prednisoLONE OPHTH SUSP 1 DROPS EYE-RIGHT (21:30)
[2022-01-08] MEDS: ALFUZOSIN 10 MG 10 EACH PO (21:30)
[2022-01-09] VITALS (10 sets, daily range): BP systolic 102–140; BP diastolic 51–71; PULSE 77–89; RESP 16–19; TEMP 36.4–37.6; O2SAT 92–97
[2022-01-09] MEDS: HYDROCODONE/ACET 5/325 TABLET 1 TAB PO ×4 (03:52→20:17)
--- NOTE | 2022-01-09 07:42 | PM.PNPO.1 ---
Subjective Subjective Date Patient Seen: 01/09/22 Time Patient Seen: 07:42 Interval history: Patient is complaining of mild back pain today. He has no new complaints. We are waiting upon bed placement for SNF due to unsafe ambulation. Patient denies any new numbness or tingling. Exam Vital Signs (past 8 hours): - 01/09/22 00:32 01/09/22 03:50 01/09/22 06:29 Temperature 98.5 F 98.3 F 97.5 F L Pulse Rate 77 84 79 Respiratory Rate 16 18 18 Blood Pressure 131/55 L 116/59 L 109/59 L Pulse Oximetry 92 96 96 Oxygen Delivery Method Room Air Oxygen Flow Rate 0 Narrative Exam Narrative: Pleasant 81-year-old male, resting comfortably in bed, no acute distress. Dressing is clean, dry, intact. Bilateral lower extremity: Motor functions are grossly intact, sensation is grossly intact to light touch, calves are soft and nontender to palpation. Objective Labs Result Diagrams: 01/04/22 04:53 PFSH Medical History Arthritis BCC (basal cell carcinoma) Bilateral shoulder pain CAD (coronary artery disease) Diabetes Enlarged prostate HLD (hyperlipidemia) [place] (hard of [place]) HTN (hypertension) Neck pain Numbness PSVT (paroxysmal supraventricular tachycardia) Surgical History H/O vasectomy History of arthroplasty of right knee History of cardiac catheterization (2020) History of lumbar surgery (10/07/19) History of total right hip arthroplasty Hx of arthroscopy of left knee Hx of arthroscopy of right knee Hx of cystoscopy Hx of hernia repair Hx of left knee surgery (~2004) S/P CABG x 4 (~01/2017) Status post extracapsular cataract extraction of right eye Social History household members: none Smoking Status: Never smoker alcohol intake: current Assessment & Plan Post-op Postoperative Procedures: Procedures Operation Date: 01/03/22 11:15 Actual Procedure Side Surgeon p L3-4 TLIF, L4-S1 HWR, L4-5, L5-S1 laminectomy, L3-S1 PSF w. instrumentation Aaron Rodriguez MD Postoperative day: 6 Postoperative status: doing well Postoperative status narrative: Stable status post L5-S1 hardware removal, L3-S1 fusion Postoperative plan narrative: -Mobilize with PT. Limit bending, lifting, twisting x6 weeks -continue with current pain management -DC to SNF today once a bed is available
[2022-01-09] MEDS: METOPROLOL ER 25 MG TABLET PO ×2 (08:10→20:18)
[2022-01-09] MEDS: DOCUSATE 100 MG CAPSULE PO ×2 (08:11→20:15)
[2022-01-09] MEDS: RANOLAZINE 500 MG TAB.ER.12H PO ×2 (08:12→20:18)
[2022-01-09] MEDS: ACETAMINOPHEN 325 MG TABLET 650 MG PO (09:00)
[2022-01-09] MEDS: SODIUM CHLORIDE 0.9% FLUSH 10 ML IV ×2 (09:20→22:08)
--- NOTE | 2022-01-09 09:49 | PT.IPTN ---
Current Diagnoses Spinal stenosis, lumbar region without neurogenic claudication (01/05/22) Arthrodesis status (01/05/22) Surgery Performed Operation Date: 01/03/22 11:15 Actual Procedures p L3-4 TLIF, L4-S1 HWR, L4-5, L5-S1 laminectomy, L3-S1 PSF w. instrumentation - Aaron Rodriguez MD Physical Therapy Treatment Note M2 PT-IP Current Condition Start: 01/04/22 08:24 Freq: NEEDED Status: Active Protocol: Document 01/09/22 09:18 SP (Rec: 01/09/22 12:26 SP [id number]) Physical Therapy Current Condition Current Condition Evaluation Date 01/04/22 Treatment Diagnosis s/p L3-S1 TLIF, lami; difficulty in walking Onset Date 01/03/22 M3 PT-IP Subjective Start: 01/04/22 08:24 Freq: NEEDED Status: Active Protocol: Document 01/09/22 09:18 SP (Rec: 01/09/22 12:26 SP [id number]) Subjective Physical Therapy Visit Type Type Treatment Note Visit Start Time 09:18 Visit Stop Time 09:49 Total Visit Minutes 31 Number of CASH SALES AUDIT CLERK Visits 1 Physical Therapy Visit Comments Patient Comments I was able to roll over in bed last night without bothering nursing, getting better/ stronger. Patient Goals Pt hopes to d/c to SNF due to level of assist required. Therapy Pain Assessment Pain When Pain Assessed During Mobility Pain Present Pain Present Pain Reported Location low back Intensity 3 Scale Used Numeric (0 - 10) Description With Movement Pain Management Techniques Distraction,Modification of Treatment,Re-positioning, Timing of Activity with Medications M4 PT-IP Mobility and Gait Start: 01/04/22 08:24 Freq: NEEDED Status: Active Protocol: Document 01/09/22 09:18 SP (Rec: 01/09/22 12:26 SP [id number]) PT-Bed Mobility Assessment Rolling Type of Rolling Log Rolling,Roll to Left Level of Assist Standby Assistance Supine to Sit Supine to Sit Standby Assistance,Bedrails Sit to Supine Sit to Supine Contact Guard Assistance,1 Person Assistance,Bedrails Scooting Scooting to Edge of Bed Standby Assistance PT-Transfer Assessment Sit to and From Stand Sit to and from Stand Contact Guard Assistance, Minimal Assistance,1 Person Assistance,Use of Upper Extremities Equipment Transfer Assistive Device Gait Belt,Front Wheeled Walker Orthotic/Prosthetic Devices or Brace: Yes Transfers Transfer Destination Bed,Chair,Toilet Transfer Technique Pt ambulated w/ FWW Transfer Ability Level of Assist Contact Guard Assistance,1 Person Assistance,Use of Upper Extremities Comments Mobility Comments Pt was in chair when arrived, declined donning shoes. Vitals pre mobility: BP 112/61 HR 88 SaO2 90s on RA. Pt completed 5x STS from chair CGA in 30sec , ambulated w/ FWW CG- Min A around room 2 laps before using bathroom, improved quad facilitation step to initially around end bed progressed step over step pushing FWW x1 lap in room, 1/2 2nd lap cued LLE advancement due to found leaving behind him step to patterning, hunche posture and walker forward, improved self corrections errrect posture LLE foot clerance but step to patterning with cues but continues increased UE WB on FWW. Pt required use of bathroom, cGA pivot and trunk support for self mgt brief and lower to toilet using grab bar. ABle large loose bowel movement self pericare in sitting, extra time needed. Sit>stand CGA for trunk stability and gown mgt to allow self brief mgt 1 UE other on fWW self stabilize. Pt walked to sink w/FWW cGA- 5 %A cues for balance during pivot turn front sink , washed hands SBA then returned to R EOB, completed sit>supine able get BLE onto bed in R SL self this tx and good spinal precautions R SL>supine then L SL> sit, self use of bed rails for mobility and bridge/ scoot self. SPT bed> chair w/ FWW CGA w/ safety cues for centering self and slow descent to chair. Pt had call light and all needs in reach before left, chair alarm donned due to fall risk. Will continue to assess progress. Pt does not have son or familiy to be with him 24/ at home, recommending SNF to progress strength, endurance, balance and functional independence. Gait Assessment Gait Gait Assistance Required: Contact Guard Assist,Minimum Assistance,1 Person Assist Distance (Feet) 60 Able to Maintain Weight Bearing Status Yes During Gait Assistive Devices Assistive Device Gait Belt,Front Wheeled Walker Orthotic/Prosthetic Devices or Brace: Yes Gait Deviations General Gait Pattern Antalgic,Decreased Stride Length,Decreased Feet Clearance,Flexed Trunk,Narrow Based Gait,Step-to Gait Factors Limiting Gait Function Factors Limiting Gait Function Decreased Activity Tolerance, Decreased Strength,Limited Range of Motion,Pain,Poor Balance,Poor Safety Awareness Comments Gait Comments see mobility comments. Stair Climbing Assessment Comments Stair Climbing Comments No stairs at home. PT-Balance Assessment Sitting Balance and Reactions Static Sitting Balance Ability Normal Dynamic Sitting Balance Ability Good Standing Balance and Reactions Static Standing Balance Ability Good Dynamic Standing Balance Ability Fair Device Used FWW Functional Assessments Functional Tests 5 Times Sit to Stand 30sec M5 PT-IP Objective Assessments Start: 01/04/22 08:24 Freq: NEEDED Status: Active Protocol: Document 01/04/22 10:38 AW (Rec: 01/04/22 12:25 AW [id number]) Orientation Orientation/Cognition Level of Alertness Alert Orientation Name,Day of Week,Place, Situation Language Function Ability Hard of Hearing Safety Awareness Decreased Safety Awareness Memory Description Short Term Impaired Gross Range of Motion Upper Extremity ROM Impairments Pt states bilateral rotator cuff injuries limit his rotation. I switched to suspenders because they're easier. Lower Extremity ROM Assessment Bilaterally Impaired Impairments Pt lacks 5-10 degrees knee extension bilaterally Strength Lower Extremity Strength Assessment Bilaterally Impaired Hip 4-/5 Knee 4/5 Ankle 4/5 Sensation Assessment Sensation Gross Sensation WNL M6 PT-IP Treatment Start: 01/04/22 08:24 Freq: NEEDED Status: Active Protocol: Document 01/09/22 09:18 SP (Rec: 01/09/22 12:26 SP [id number]) Physical Therapy Treatment Education Education Provided Precautions,Safety Other Treatments Other Treatment Performed 5xSTS from chair in 30 sec, CGA M7 PT-IP Assessment and Plan Start: 01/04/22 08:24 Freq: NEEDED Status: Active Protocol: Document 01/09/22 09:18 SP (Rec: 01/09/22 12:26 SP [id number]) PT Summary Assessment and Plan Potential Rehabilitation Potential Good Status of Condition at Evaluation Evolving Summary Impairments Pain,ROM,Strength,Balance, Cognition,Bed Mobility, Transfers,Gait,Activity Tolerance Progress Towards Goals Progressing Toward Goals,Slow Progress due to Activity Tolerance Assessment Summary Pt improving in strength endurance this tx, SBA Bed Mob . Transfers CGA w/FWW, gait CGA- Min A using fWW increased 60 ft in room, step to to step over step to Step to, Min A end distance due to LLE foot decrease stride and clearance with decreased strength. Continue recommend SNF progress strength, endurance, balance toward functional independence. Goals Bed Mobility Goal Independent Transfer Goal Standby Assistance,Front Wheeled Walker Gait Goal Standby Assistance,Front Wheel Walker Gait Distance 200 Other Goals -- improve transfers and gait to SBA with 4WW Days to Meet Goals 10 Frequency of Treatment Frequency Of Treatment Twice a Day Treatment Plan Physical Therapy Treatment Plan Bed Mobility Training,Transfer Training,Gait Training, Therapeutic Exercise,Balance Retraining,Post Op Education, Discharge Planning,Hot or Cold Pack,Neuromuscular Re-ed Other Recommendations and Next Treatment Don pt's own shoes; transfers Focus and gait with FWW; sit to stands from lower surface to work on hip hinge Precautions Lumbar Precautions Log Roll,No Twisting,Limit Bending,Lifting Restriction of 10 lbs,Gait Belt above Incisional Area Other Precautions falls Recommendations To Nursing Amount of Assist Needed 1 Person Assist Discharge Recommendations PT Discharge Recommendations SNF Rehab Equipment Needed for Home Before defer to subacute rehab Discharge Transportation Needs at Discharge Wheelchair/Cabulance
[2022-01-09 11:10] LABS: COVID19 -Nasal RAPID Negative (Negative)
--- NOTE | 2022-01-09 12:34 | CM.DPC ---
DCP SNF Discharge Per Ortho PA, pt has remained medically stable for d/c to SNF and have just been awaiting open bed. SW called [facility] (who obtained [employer] auth for SNF but has not had a bed) and they confirm they already had an admission planned for today and two discharges this afternoon but not in time to accept pt today but scheduled transport for 1000 tomorrow Tu01/10/22. SW called [facility] and they are currently full with no beds today either. No other [facility] SNF's are contracted with [employer] and SW left [facility] [place] SNFs to see if contracted with [employer] for today. SW spoke to pt and also to son and updated on current plan of [facility] tomorrow at 1000 and son confirms pt's Repathdario Delgado is in fridge at pt's house and pt gets a dose twice a month every other week and son would be happy to bring pt's next dose to SNF if needed. RN kindly obtained pt's updated COVID swab this morning and it's negative. FRANCESCO faxed [facility], signed med rec, scripts, COVID vax copy, MD orders to [facility] to review for d/c tomorrow and will just need to fax d/c summary and COVID neg swab copy to [facility] at Discharge. FRANCESCO updated RN and electronic warfare officer. Plan: FRANCESCO to follow closely for plan of pt d/c to [facility] in the AM at 1000 and fax d/c summary and COVID neg results to [facility] at discharge. Maria Luz Dale, COMPLAINTS COORDINATOR
--- NOTE | 2022-01-09 12:37 | OT.IP.TRT ---
Current Diagnoses Spinal stenosis, lumbar region without neurogenic claudication (01/05/22) Arthrodesis status (01/05/22) Surgery Performed Operation Date: 01/03/22 11:15 Actual Procedures p L3-4 TLIF, L4-S1 HWR, L4-5, L5-S1 laminectomy, L3-S1 PSF w. instrumentation - Aaron Rodriguez MD Occupational Therapy Treatment Note M2 OT-IP Current Condition Start: 01/04/22 12:55 Freq: Status: Active Protocol: Document 01/04/22 11:35 [facility] (Rec: 01/04/22 13:14 CCC [id number]) Occupational Therapy Current Condition Current Condition Evaluation Date 01/04/22 Treatment Diagnosis S/p L3-4 TLIF, L4-S1 HWR, L5- S1 laminectomy, L3-5 PSI Diagnosis Onset Date 01/03/22 Post Operative Precautions Lumbar Precautions Log Roll,No Twisting,Limit Bending,Lifting Restriction of 10 lbs,Gait Belt above Incisional Area M3 OT- IP Subjective and Pain Start: 01/04/22 12:55 Freq: Status: Active Protocol: Document 01/09/22 13:53 CGR (Rec: 01/09/22 14:03 CGR [id number]) OT- Subjective Occupational Therapy Visit Type Type Progress Note Visit Start Time 12:04 Visit Stop Time 12:37 Total Visit Minutes 33 Notes Pt agreeable to shower. OT Pain Assessment Pain When Pain Assessed At Rest Pain Present Pain Present Pain Reported Location low back Intensity 4 Scale Used Numeric (0 - 10) Management Techniques Distraction,Modification of Treatment,Re-positioning M4 OT- IP ADL's Start: 01/04/22 12:55 Freq: Status: Active Protocol: Document 01/09/22 13:53 CGR (Rec: 01/09/22 14:03 CGR [id number]) OT [id number] General Evaluation Self-Feeding Ability Independent Comments OT Self-Feeding Comments lunch arrived OT ADL-Grooming General Evaluation Grooming Ability Standby Assistance Areas Needing Assistance Face Washing Comments OT Grooming Comments performed in the shower OT ADL-Oral Care Comments Oral Care Comments not performed OT ADL-Dressing General Eval Upper Body Dressing Ability Standby Assistance Lower Body Dressing Ability Standby Assistance Areas Needing Assistance Underpants/Brief Assistive Devices Dressing Assistive Devices News Operations Manager Comments OT Dressing Comments hospital gown and brief using farm machine tender. Pt needed max a for socks but d/t donning in shower for safe transfer back to chair. OT ADL-Toileting General Evaluation Toileting Ability Standby Assistance Areas Needing Assistance Manage Clothing,Perform Perineal Hygiene Comments OT Toileting Comments pt urinated seated on toilet OT ADL-Bathing Bathing Type Bathing Type Shower General Evaluation Bathing Ability Minimal Assistance Areas Needing Assistance Wash/Dry Back,Wash/Dry Lower Extremities Devices Bathing Equipment Hand Held Shower Sprayer, Shower Chair with Arms,Grab Bars Comments OT Bathing Comments Pt relied heavily on the grab bars during standing and transfering in and out of the shower. M5 OT- IP IADL's Start: 01/04/22 12:55 Freq: Status: Active Protocol: Document 01/04/22 11:35 CCC (Rec: 01/04/22 13:14 CCC [id number]) OT-Instrumental Activities of Daily Living Home Safety Awareness Awareness of Need for Assistance at Home Good Awareness Home Safety Comments Pt states lives alone and son only able to assist 1 day. M6 OT- IP Functional Cognition Start: 01/04/22 12:55 Freq: Status: Active Protocol: Document 01/07/22 10:34 [facility] (Rec: 01/07/22 10:50 [facility] [id number]) Cognitive Factors Limiting Selfcare Function Cognitive Ability Level of Alertness Alert Attention Span Ability Capable of Focused Attention, Capable of Sustained Attention Ability to Follow Commands Able to Follow One Step Commands Cognitive Comments Cognitive Assessment Comments Pt much more alert today and able to follow commands for ADL and mobility needs. Pt needing cues for safety awareness to be sure to keep the FWW in front of him and to back up to surfaces before sitting down. M7 OT- IP Mobility and Balance Start: 01/04/22 12:55 Freq: Status: Active Protocol: Document 01/09/22 13:53 CGR (Rec: 01/09/22 14:03 CGR [id number]) OT-Transfer Assessment Sit to and From Stand Sit to and from Stand Standby Assistance,Contact Guard Assistance Transfers Transfer Ability Standby Assistance,Contact Guard Assistance Technique Transfer Destination Bedside Commode,Chair,Shower Stall,Toilet Transfer Technique Stand Step Pivot Devices Transfer Assistive Devices Gait Belt,Front Wheeled Walker Comments Mobility Comments mobility around the room and bathroom. OT- Balance Assessment Sitting Balance and Reactions Static Sitting Balance Ability Good Dynamic Sitting Balance Ability Fair M8 OT- IP Objective Assessments Start: 01/04/22 12:55 Freq: Status: Active Protocol: Document 01/04/22 11:35 CCC (Rec: 01/04/22 13:14 CCC [id number]) OT Gross Range of Motion Upper Extremity Range of Motion Assessment Bilaterally Impaired OT Strength Upper Extremity Strength Assessment Bilaterally Impaired OT- Coordination Assessment Comments Coordination Comments Decreased for FMS OT-Muscle Tone Assessment Muscle Tone WNL Yes M9 OT- IP Assessment and Plan Start: 01/04/22 12:55 Freq: Status: Active Protocol: Document 01/09/22 13:53 CGR (Rec: 01/09/22 14:03 CGR [id number]) OT Summary Assessment and Plan Potential Rehabilitation Potential Good Analytic Complexity at Evaluation Low Summary OT Impairments Pain,Range of Motion,Strength, Balance,Functional Mobility, Grooming,Dressing,Toileting, Bathing,Toilet Transfers, Shower Transfers,Activity Tolerance Progress Towards Goals Progressing Toward Goals Assessment Summary Pt showered in todays session. Pt is still unsafe with mobility on his own but knows his back precautions. Pt will continue to benefit from OT services. Goals Grooming Goal Independent Dressing Goal Independent Toileting Goal Independent Bathing Goal Independent Toilet Transfer Goal Independent Shower Transfer Goal Independent Days to Meet Goals 17 Frequency of Treatment Frequency Of Treatment Once a Day Treatment Plan OT Treatment Plan ADL Training,Functional Mobility,Patient/Family Education,Discharge Planning Other Treatment Recommendations and Next shower Treatment Focus Discharge Recommendations OT Discharge Recommendations SNF Rehab Transportation Needs at Discharge Private Vehicle,Wheelchair/ Cabulance
[2022-01-09] MEDS: prednisoLONE OPHTH SUSP 1 DROPS EYE-RIGHT (20:14)
[2022-01-09] MEDS: PRAVASTATIN 20 MG TABLET 40 MG PO (20:16)
[2022-01-09] MEDS: ASPIRIN EC 81 MG TABLET PO (20:16)
[2022-01-09] MEDS: SENNOSIDES 8.6 MG TABLET 17.2 MG PO (20:17)
[2022-01-09] MEDS: ALFUZOSIN 10 MG 10 EACH PO (20:17)
[2022-01-10] VITALS: BP 102/43; PULSE 79; RESP 18; TEMP 37; O2SAT 95
[2022-01-10 04:00] VITALS: BP 114/51; PULSE 81; RESP 18; TEMP 36.9; O2SAT 95
[2022-01-10] MEDS: HYDROCODONE/ACET 5/325 TABLET 1 TAB PO ×2 (04:30→08:13)
--- NOTE | 2022-01-10 07:43 | PM.PNPO.1 ---
Subjective Subjective Date Patient Seen: 01/10/22 Time Patient Seen: 07:44 Interval history: Patient states his pain is [id number]. Pain is currently well controlled with Tylenol and hydrocodone. No fever chills. No nausea vomiting. Exam Vital Signs (past 8 hours): - 01/10/22 00:00 01/10/22 04:00 Temperature 98.6 F 98.5 F Pulse Rate 79 81 Respiratory Rate 18 18 Blood Pressure 102/43 L 114/51 L Pulse Oximetry 95 95 Oxygen Delivery Method Room Air Oxygen Flow Rate 0 Narrative Exam Narrative: 81-year-old male resting comfortably in bedside chair no apparent distress. Motor functions intact bilateral lower extremities. Sensation grossly intact to light touch bilateral lower extremities. Const General: cooperative and comfortable Orientation: alert Resp Effort & Inspection: normal respiratory effort and able to speak in complete sentences Objective Labs Result Diagrams: 01/04/22 04:53 Labs: Laboratory Results - last 24 hr 01/09/22 10:45 SARS-CoV-2 (PCR) Negative PFSH Medical History Arthritis BCC (basal cell carcinoma) Bilateral shoulder pain CAD (coronary artery disease) Diabetes Enlarged prostate HLD (hyperlipidemia) ANDREAFSKI (hard of hearing) HTN (hypertension) Neck pain Numbness PSVT (paroxysmal supraventricular tachycardia) Surgical History H/O vasectomy History of arthroplasty of right knee History of cardiac catheterization (2020) History of lumbar surgery (10/07/19) History of total right hip arthroplasty Hx of arthroscopy of left knee Hx of arthroscopy of right knee Hx of cystoscopy Hx of hernia repair Hx of left knee surgery (~2004) S/P CABG x 4 (~01/2017) Status post extracapsular cataract extraction of right eye Social History household members: none Smoking Status: Never smoker alcohol intake: current Assessment & Plan Post-op Postoperative Procedures: Procedures Operation Date: 01/03/22 11:15 Actual Procedure Side Surgeon p L3-4 TLIF, L4-S1 HWR, L4-5, L5-S1 laminectomy, L3-S1 PSF w. instrumentation Aaron Rodriguez MD Postoperative plan narrative: Patient progressing as expected status post L3-L4, L4-L5, L5-S1 fusion Mobilize with physical therapy, limit bending, twisting, lifting Multimodal pain management Patient to be discharged to [facility] today. custodial facility vehicle is to arrive around 10:00 a.m. this morning To transfer patient. Patient to follow-up with [facility] 2 weeks postop.
[2022-01-10 08:00] VITALS: BP 129/63; PULSE 62; RESP 18; TEMP 36.6; O2SAT 95
[2022-01-10 08:11] VITALS: BP 129/63; PULSE 82
[2022-01-10] MEDS: ASPIRIN EC 81 MG TABLET PO (08:11)
[2022-01-10] MEDS: METOPROLOL ER 25 MG TABLET PO (08:11)
[2022-01-10] MEDS: polyethylene glycoL 3350 17 GM POWD.PACK PO (08:11)
[2022-01-10] MEDS: DOCUSATE 100 MG CAPSULE PO (08:11)
[2022-01-10] MEDS: RANOLAZINE 500 MG TAB.ER.12H PO (08:12)
[2022-01-10] MEDS: ACETAMINOPHEN 325 MG TABLET 650 MG PO (08:22)
--- NOTE | 2022-01-10 10:12 | PC.NURSE ---
Pt A&Ox4, VSS, afebrile on RA. He uses IS and getting to 2000+. He calls appropriately for SBA to transfer and for ambulating. He reports pain is manageable with hydrocodone reporting pain reduced from a 6-7/10 down to a 4-5/10. PA at bedside evaluating him and cleared for discharge again today.He has good po intake and dressing to back is c/d/i. He is dressed and ready for discharge this morning. Transporter arrived at 0950 to transport patient at 10 a.m. to [facility] via w//chair. He transports with all of his medications from pharmacy, his belongings and discharge packet. Report called to RN at [facility].
--- NOTE | 2022-01-10 11:26 | CM.DPC ---
DCP/continued: Reviewed chart. Received notifcication from CM steam train driver that patient scheduled to be picked up today at 10:00AM to go to [facility]. Orders obtained and faxed to [facility] because Kareen reports that she did not get them yesterday? In addition COVID test result faxed. Spoke with RN Peg and she will call to provide report. In addition, Peg spoke with son and patient and both continue to be aware and agreeable to plan. P: [facility] today. LUCÍA Robledo
== END 2022-01-10 10:15 ==
LOC: OR 09:31 → AC 09:31
PROVIDERS: Physician Assistant; Admitting Provider Orthopaedic Surgery Orthopaedic Surgery of the Spine; PCP Family Medicine; Referring Provider Orthopaedic Surgery Orthopaedic Surgery of the Spine; Visit Provider Orthopaedic Surgery Orthopaedic Surgery of the Spine
PROC: (CPT 22842; principal; 2022-01-03 11:15)
DX: M48.062 Spinal stenosis, lumbar region with neurogenic claudication (principal); M43.16 Spondylolisthesis, lumbar region; M54.16 Radiculopathy, lumbar region; Z98.1 Arthrodesis status; T84.296A Other mechanical complication of internal fixation device of vertebrae, initial encounter; M96.0 Pseudarthrosis after fusion or arthrodesis
CPT/HCPCS: 22842; 20939; 22853; 22633; 22614; 63048; 63047; 72100; 76000; 82962; 85014; 85018; 87635; 97110; 97116; 97162; 97165; 97530; 97535; C9803; G0378; C1713; C1831; C9290; J0171; J0330; J0690; J1100; J1170; J2405; J2704; J3010; J3410